=== PATIENT | male | born 1950 | race Caucasian/White ===

== ENCOUNTER → 2017-08-21 09:33 | Outpatient (CLI) | payer MEDICARE, OTHER, SELFPAY ==
[2017-08-21 12:44] LABS: AST(SGOT) 15 U/L (15-37); Alanine Aminotransfer ALT/SGPT 26 U/L (16-61); Albumin, Serum 3.5 g/dL (3.2-5.0); Alkaline Phosphatase 83 U/L (45-117); Anion Gap 9 (5-15); BUN 17 mg/dL (7-18); BUN/Creat Ratio 20.2 RATIO (10-20); Bilirubin, Direct 0.09 mg/dL (0.00-0.30); Calcium,Total 9.2 mg/dL (8.5-10.1); Chloride 102 mmol/L (98-107); Cholesterol 128 mg/dL (200); Creatinine, Serum 0.84 mg/dL (0.70-1.30); EST Glomerular Filtration Rate 97 mL/min (>60); Est Glom Filt Rate - Afr Amer 118 mL/min (>60); Globulin 3.4 g/dL (2.2-4.2); Glucose 159 mg/dL (74-106); High Density Lipoprotein 42 mg/dL; Potassium 4.4 mmol/L (3.5-5.1); Protein, Total 6.9 g/dL (6.4-8.2); Sodium Level 139 mmol/L (136-145); Triglycerides 114 mg/dL; Very Low Density Lipoprotein 23 mg/dL (5-40)
== END ==
PROVIDERS: Family Provider Family Medicine; PCP Family Medicine; Visit Provider Family Medicine
DX: E11.9 Type 2 diabetes mellitus without complications (principal)
CPT/HCPCS: 36415; 80048; 80061; 80076

== ENCOUNTER → 2017-08-22 10:23 | Outpatient (CLI) | payer MEDICARE, OTHER, SELFPAY ==
[2017-08-22 12:58] LABS: Microalbumin:Creatinine Ratio 281.2 mg/g CRE (<30 mg/g CRE)
== END ==
PROVIDERS: Family Provider Family Medicine; PCP Family Medicine; Visit Provider Family Medicine
DX: E11.9 Type 2 diabetes mellitus without complications (principal)
CPT/HCPCS: 82043; 82570

== ENCOUNTER → 2018-03-27 09:15 | Outpatient (CLI) | payer MEDICARE, OTHER, SELFPAY ==
[2018-03-27 10:35] LABS: AST(SGOT) 8 U/L (15-37); Alanine Aminotransfer ALT/SGPT 20 U/L (16-61); Albumin, Serum 3.1 g/dL (3.2-5.0); Alkaline Phosphatase 76 U/L (45-117); Anion Gap 8 (5-15); BUN 18 mg/dL (7-18); Bilirubin, Direct 0.13 mg/dL (0.00-0.30); Calcium,Total 8.7 mg/dL (8.5-10.1); Chloride 100 mmol/L (98-107); EST Glomerular Filtration Rate 89 mL/min (>60); Est Glom Filt Rate - Afr Amer 108 mL/min (>60); Globulin 3.6 g/dL (2.2-4.2); Glucose 279 mg/dL (74-106); Potassium 4.3 mmol/L (3.5-5.1); Protein, Total 6.7 g/dL (6.4-8.2); Sodium Level 138 mmol/L (136-145)
== END ==
PROVIDERS: Family Provider Family Medicine; PCP Family Medicine; Visit Provider Family Medicine
DX: E11.9 Type 2 diabetes mellitus without complications (principal)
CPT/HCPCS: 36415; 80048; 80076

== ENCOUNTER → 2019-04-04 08:27 | Outpatient (CLI) | payer MEDICARE, SELFPAY ==
[2019-02-10 08:26] VITALS: BMI 41.0
[2019-04-04 10:30] LABS: Anion Gap 7 (5-15); BUN 22 mg/dL (7-18); BUN/Creat Ratio 26.8 RATIO (10-20); Calcium,Total 9.5 mg/dL (8.5-10.1); Chloride 104 mmol/L (98-107); Cholesterol 112 mg/dL (200); Creatinine, Serum 0.82 mg/dL (0.70-1.30); EST Glomerular Filtration Rate 99 mL/min (>60); Est Glom Filt Rate - Afr Amer 120 mL/min (>60); Glucose 158 mg/dL (74-106); High Density Lipoprotein 39 mg/dL; Sodium Level 140 mmol/L (136-145); Triglycerides 95 mg/dL; Very Low Density Lipoprotein 19 mg/dL (5-40)
== END ==
PROVIDERS: Family Provider Family Medicine; PCP Family Medicine; Referring Provider Family Medicine; Visit Provider Family Medicine
DX: E11.9 Type 2 diabetes mellitus without complications (principal)
CPT/HCPCS: 36415; 80048; 80061

== ENCOUNTER → 2019-08-06 16:00 | Outpatient (CLI) | payer MEDICARE, SELFPAY ==
[2019-08-06 14:10] VITALS: BMI 41.0
[2019-08-06 16:30] LABS: Bacteria 0 SEEN /hpf (None Seen); Mucous, Urine 0 SEEN /hpf (<or=2+); Red Blood Cells-Urine 0 SEEN /hpf (0-5); Squamous Epithelial Cells - UA 0 SEEN /hpf (0-5)
[2019-08-06 17:11] LABS: Color, Urine Yellow (Yellow); Glucose, Dipstick 1000 mg/dl (Normal); Ketone-Dipstick Negative (Negative); Leukocyte Esterase-Dipstick Negative /ul (Negative); Nitrite-Dipstick Negative (Negative); Occult Blood-Urine Negative /ul (Negative); Protein-Dipstick 100 mg/dl (Negative); Specific Gravity, Urine 1.015 (1.002-1.030); Urine Bilirubin Dipstick Negative (Negative); Urine Clarity Clear (Clear); Urine Urobilinogen Normal (Normal)
[2019-08-06 17:36] LABS: White Blood Cells 0-5 SEEN /hpf (0-5)
== END ==
PROVIDERS: PCP Family Medicine; Referring Provider Physician Assistant; Visit Provider Physician Assistant
DX: M54.9 Dorsalgia, unspecified (principal)
CPT/HCPCS: 81001; 87086

== ENCOUNTER → 2019-10-09 09:21 | Outpatient (CLI) | payer MEDICARE, SELFPAY ==
[2019-08-06 14:10] VITALS: BMI 41.0
[2019-10-09 10:22] LABS: Hemoglobin A1c 8.2 % (3.8-5.6)
[2019-10-09 10:36] LABS: Anion Gap 6 (5-15); BUN 26 mg/dL (7-18); BUN/Creat Ratio 29.6 RATIO (10-20); Calcium,Total 9.8 mg/dL (8.5-10.1); Chloride 103 mmol/L (98-107); Cholesterol 129 mg/dL (200); Creatinine, Serum 0.88 mg/dL (0.70-1.30); EST Glomerular Filtration Rate 92 mL/min (>60); Est Glom Filt Rate - Afr Amer 111 mL/min (>60); Glucose 173 mg/dL (74-106); High Density Lipoprotein 45 mg/dL; Sodium Level 138 mmol/L (136-145); Triglycerides 99 mg/dL; Very Low Density Lipoprotein 20 mg/dL (5-40)
== END ==
PROVIDERS: PCP Family Medicine; Referring Provider Family Medicine; Visit Provider Family Medicine
DX: E11.9 Type 2 diabetes mellitus without complications (principal)
CPT/HCPCS: 36415; 80048; 80061; 83036

== ENCOUNTER → 2019-11-13 13:18 | Outpatient (CLI) | payer MEDICARE, SELFPAY ==
[2019-08-06 14:10] VITALS: BMI 41.0
[2019-11-13 15:10] LABS: Absolute Lymphocyte Count 1.67 X10^3/uL (0.83-4.51); Absolute Neutrophil Count 4.9 X10^3/uL (2.0-7.7); Basophil# 0.09 X10^3/uL; Basophil% 1.1 % (0-1); Eosinophil# 0.41 X10^3/uL; Eosinophils% 5.2 % (0-5); Hematocrit 47.9 % (40-54); Hemoglobin 15.3 g/dL (13.0-16.5); Lymphocyte # 1.67 X10^3/ul (4.0); Lymphocyte % 21.2 % (19-41); Mean Corp Hgb Conc 31.9 g/dL (32-36); Mean Corpuscular Hgb 29.4 pg (27.0-32.0); Mean Corpuscular Volume 91.9 fL (80-94); Mean Platelet Vol. 9.9 fl (6.2-12.0); Monocyte# 0.74 X10^3/uL; Monocyte% 9.4 % (0-10); NRBC Flagged by Analyzer 0 % (0-5); Neutrophil # 4.93 X10^3/uL (2.7-7.7); Neutrophil % 62.6 % (47-70); Platelet Count 299 K/mm3 (150-450); RBC Distribution Width CV 12.9 % (11.6-14.6); RBC Distribution Width SD 42.2 fl (35.1-43.9); Red Blood Count 5.21 M/mm3 (4.6-6.2); White Blood Count 7.9 K/mm3 (4.4-11.0)
[2019-11-13 15:50] LABS: Thyroid Stim Hormone (TSH) 2.56 uIU/mL (0.358-3.74)
== END ==
PROVIDERS: PCP Family Medicine; Referring Provider Family Medicine; Visit Provider Family Medicine
DX: M79.89 Other specified soft tissue disorders (principal); E11.9 Type 2 diabetes mellitus without complications
CPT/HCPCS: 36415; 84443; 85025

== ENCOUNTER → 2019-11-17 12:44 | Outpatient (CLI) | payer MEDICARE, SELFPAY ==
[2019-11-14 13:16] VITALS: BMI 41.0
--- NOTE | 2019-11-17 12:49 | VDLE_ITS ---
Reason For Study: Leg edema RIGHT LEFT GSV is normal. GSV is normal. CFV is compressible, spontaneous, phasic, CFV is compressible, spontaneous, phasic, competent and demonstrates normal competent, and demonstrates normal augmentation. augmentation. FV is compressible, spontaneous, phasic, FV is compressible, spontaneous, phasic, competent and demonstrates normal competent and demonstrates normal augmentation. augmentation. POP V is compressible, spontaneous, phasic, POP V is compressible, spontaneous, phasic, competent and demonstrates normal competent and demonstrates normal augmentation. augmentation. T/P Trunk is compressible. T/P Trunk is compressible. PTV is compressible. PTV is compressible. RT PerV is compressible. LT PerV is compressible. Large vascularized structure noted in the right proximal thigh with roeleaux flow noted. Procedure Exam performed in department. A preliminary report was called and/or faxed to [facility]. Interpretation Summary No evidence for acute deep venous thrombosis bilateral lower extremities with patent and compressible bilateral great saphenous veins. Large vascularized right proximal thigh structure with slow blood flow noted. This appears to be in the subcutaneous tissue but the extent cannot be determined secondary to its size. Clinical correlation or additional imaging would be pertinent. Ordering Physician: Valentina Servin Referring Physician: Dino Ward Performed By: Aminta Carpio RVT and Student
== END ==
PROVIDERS: PCP Family Medicine; Referring Provider Family Medicine; Visit Provider Family Medicine
DX: R60.0 Localized edema (principal)
CPT/HCPCS: 93970

== ENCOUNTER → 2020-04-01 09:38 | Outpatient (CLI) | payer MEDICARE, SELFPAY ==
[2020-03-18 15:29] VITALS: BMI 44.0
[2020-04-01 12:40] LABS: AST(SGOT) 9 U/L (15-37); Alanine Aminotransfer ALT/SGPT 23 U/L (16-61); Albumin, Serum 3.6 g/dL (3.2-5.0); Alkaline Phosphatase 83 U/L (45-117); Anion Gap 7 (5-15); BUN 25 mg/dL (7-18); BUN/Creat Ratio 27.4 RATIO (10-20); Bilirubin, Direct 0.17 mg/dL (0.00-0.30); Calcium,Total 9.6 mg/dL (8.5-10.1); Chloride 103 mmol/L (98-107); Cholesterol 121 mg/dL (200); Creatinine, Serum 0.91 mg/dL (0.70-1.30); EST Glomerular Filtration Rate 88 mL/min (>60); Est Glom Filt Rate - Afr Amer 106 mL/min (>60); Globulin 3.5 g/dL (2.2-4.2); Glucose 84 mg/dL (74-106); High Density Lipoprotein 40 mg/dL; Potassium 3.6 mmol/L (3.5-5.1); Protein, Total 7.1 g/dL (6.4-8.2); Sodium Level 140 mmol/L (136-145); Triglycerides 82 mg/dL; Very Low Density Lipoprotein 16 mg/dL (5-40)
== END ==
PROVIDERS: Internal Medicine Cardiovascular Disease; PCP Family Medicine; Visit Provider Family Medicine
DX: E11.9 Type 2 diabetes mellitus without complications (principal); E78.00 Pure hypercholesterolemia, unspecified
CPT/HCPCS: 36415; 80048; 80061; 80076

== ENCOUNTER → 2020-04-30 09:19 | Outpatient (CLI) | payer MEDICARE, SELFPAY ==
[2020-03-18 15:29] VITALS: BMI 44.0
--- NOTE | 2020-04-30 09:29 | RAD_ITS ---
STUDY: X-RAY - LEFT CALCANEUS REASON FOR EXAM: Male, 69 years old. PAIN IN LEFT HELL X 1 WEEK. REFERRING MD CHECKING FOR BONE SPURS. NKI. TECHNIQUE: 2 view(s) of the calcaneus were obtained. COMPARISON: None. FINDINGS: Normal visualized calcaneus. RAD/Calcaneus min 2 Views IMPRESSION: Normal x-ray examination of the calcaneus. Electronically Signed: Venkatesh Messer, at 12:46 EST , Service support ,
== END ==
PROVIDERS: PCP Family Medicine; Referring Provider Family Medicine; Visit Provider Family Medicine
DX: M79.672 Pain in left foot (principal)
CPT/HCPCS: 73650

== ENCOUNTER → 2020-07-02 09:49 | Outpatient (CLI) | payer MEDICARE, SELFPAY ==
[2020-03-18 15:29] VITALS: BMI 44.0
[2020-07-02 13:04] LABS: ALB/GLOB Ratio 0.9 RATIO (0.9-2.4); AST(SGOT) 8 U/L (15-37); Alanine Aminotransfer ALT/SGPT 25 U/L (16-61); Albumin, Serum 3.2 g/dL (3.2-5.0); Alkaline Phosphatase 74 U/L (45-117); Anion Gap 4 (5-15); BUN 23 mg/dL (7-18); BUN/Creat Ratio 26.4 RATIO (10-20); Calcium,Total 9.6 mg/dL (8.5-10.1); Chloride 104 mmol/L (98-107); Cholesterol 108 mg/dL (200); Creatinine, Serum 0.87 mg/dL (0.70-1.30); EST Glomerular Filtration Rate 93 mL/min (>60); Est Glom Filt Rate - Afr Amer 112 mL/min (>60); Globulin 3.5 g/dL (2.2-4.2); Glucose 63 mg/dL (74-106); High Density Lipoprotein 39 mg/dL; Potassium 3.9 mmol/L (3.5-5.1); Protein, Total 6.7 g/dL (6.4-8.2); Sodium Level 139 mmol/L (136-145); Thyroid Stim Hormone (TSH) 4.16 uIU/mL (0.358-3.74); Triglycerides 93 mg/dL; Very Low Density Lipoprotein 19 mg/dL (5-40)
== END ==
PROVIDERS: PCP Family Medicine; Referring Provider Family Medicine; Visit Provider Family Medicine
DX: J44.9 Chronic obstructive pulmonary disease, unspecified (principal); E78.5 Hyperlipidemia, unspecified
CPT/HCPCS: 36415; 80053; 80061; 84443

== ENCOUNTER → 2020-10-01 11:02 | Outpatient (CLI) | payer MEDICARE, SELFPAY ==
[2020-09-23 15:45] VITALS: BMI 44.3
--- NOTE | 2020-10-01 11:05 | RAD_ITS ---
STUDY: X-RAY CHEST REASON FOR EXAM: Male, 69 years old. Worsening shortness of breath TECHNIQUE: PA and lateral views of the chest. COMPARISON: 11/03/2016 FINDINGS: There are interstitial changes of the lungs. There is no demonstrated pleural abnormality. Sternal cerclage wires and vascular clips are present from a prior sternotomy and coronary artery bypass graft procedure (CABG). Normal mediastinum and tasia. Normal visualized pulmonary arteries. Normal visualized aortic arch and descending thoracic aorta. Normal visualized thoracic spine. Normal visualized ribs, clavicles, and shoulders. There is no demonstrated abnormality of the visualized soft tissue structures of the upper abdomen. RAD/Chest PA and Lateral IMPRESSION: Chronic interstitial changes, no superimposed acute pulmonary process Electronically Signed: Villa Ware MD at 11:35 EDT , Service support ,
== END ==
PROVIDERS: PCP Family Medicine; Referring Provider Family Medicine; Visit Provider Family Medicine
DX: R06.02 Shortness of breath (principal)
CPT/HCPCS: 71046

== ENCOUNTER → 2020-10-07 11:24 | Outpatient (CLI) | payer MEDICARE, SELFPAY ==
[2020-09-23 15:45] VITALS: BMI 44.3
--- NOTE | 2020-10-07 11:26 | US_ITS ---
STUDY: SUPERFICIAL ULTRASOUND - UPPER THIGH. REASON FOR EXAM: Male, 69 years old. Localized swelling, mass and lump, right lower limb TECHNIQUE: A superficial ultrasound was performed with real-time and static mcconnell-scale imaging. COMPARISON: None. FINDINGS: The palpable abnormality corresponds to a hypoechoic irregular solid mass measuring 8.4 cm x 10.6 x 4.7. There is evidence of increased blood flow to the mass. Biopsy is recommended. US/Ext Non Vasc Limited/Soft Tiss IMPRESSION: The palpable abnormality corresponds to an 8.4 cm x 10.6 cm x 4.7 cm hypoechoic irregular solid mass with increased vascularity. Biopsy is recommended. Electronically Signed: Venkatesh Messer MD at 13:29 EDT , Service support ,
== END ==
PROVIDERS: PCP Family Medicine; Referring Provider Family Medicine; Visit Provider Family Medicine
DX: R22.41 Localized swelling, mass and lump, right lower limb (principal)
CPT/HCPCS: 76882

== ENCOUNTER → 2020-10-15 11:44 | Outpatient (CLI) | payer MEDICARE, SELFPAY ==
[2020-09-23 15:45] VITALS: BMI 44.3
[2020-10-15 14:35] LABS: Absolute Lymphocyte Count 1.62 X10^3/uL (0.83-4.51); Absolute Neutrophil Count 5.5 X10^3/uL (2.0-7.7); Basophil% 1.2 % (0-1); Eosinophil# 0.38 X10^3/uL; Eosinophils% 4.6 % (0-5); Hematocrit 49.1 % (40-54); Lymphocyte # 1.62 X10^3/ul (0.83-4.51); Lymphocyte % 19.6 % (19-41); Mean Corp Hgb Conc 30.5 g/dL (32-36); Mean Corpuscular Hgb 28.3 pg (27.0-32.0); Mean Corpuscular Volume 92.6 fL (80-94); Mean Platelet Vol. 10.1 fl (6.2-12.0); Monocyte# 0.59 X10^3/uL; Monocyte% 7.1 % (0-10); NRBC Flagged by Analyzer 0 % (0-5); Neutrophil # 5.54 X10^3/uL (2.7-7.7); Neutrophil % 67.1 % (47-70); Platelet Count 234 K/mm3 (150-450); RBC Distribution Width CV 13.9 % (11.6-14.6); RBC Distribution Width SD 47.1 fl (35.1-43.9); White Blood Count 8.3 K/mm3 (4.4-11.0)
[2020-10-15 14:48] LABS: BNP,B-Type NATRIURETIC PEPTIDE 305.8 pg/mL (0-100)
[2020-10-15 15:07] LABS: ALB/GLOB Ratio 1.2 RATIO (0.9-2.4); AST(SGOT) 9 U/L (15-37); Alanine Aminotransfer ALT/SGPT 19 U/L (16-61); Albumin, Serum 3.4 g/dL (3.2-5.0); Alkaline Phosphatase 67 U/L (45-117); Anion Gap 7 (5-15); BUN 21 mg/dL (7-18); BUN/Creat Ratio 27.1 RATIO (10-20); Calcium,Total 9.3 mg/dL (8.5-10.1); Chloride 102 mmol/L (98-107); Cholesterol 127 mg/dL (200); Creatinine, Serum 0.78 mg/dL (0.70-1.30); EST Glomerular Filtration Rate 106 mL/min (>60); Est Glom Filt Rate - Afr Amer 128 mL/min (>60); Free T3 2.5 pg/mL (2.18-3.98); Globulin 2.9 g/dL (2.2-4.2); Glucose 162 mg/dL (74-106); High Density Lipoprotein 46 mg/dL; Potassium 4.2 mmol/L (3.5-5.1); Protein, Total 6.3 g/dL (6.4-8.2); Sodium Level 141 mmol/L (136-145); T4 Free Direct 1.07 ng/dL (0.76-1.46); Thyroid Stim Hormone (TSH) 1.75 uIU/mL (0.358-3.74); Triglycerides 141 mg/dL; Very Low Density Lipoprotein 28 mg/dL (5-40)
== END ==
PROVIDERS: PCP Family Medicine; Referring Provider Family Medicine; Visit Provider Family Medicine
DX: E11.9 Type 2 diabetes mellitus without complications (principal); E03.9 Hypothyroidism, unspecified; R06.02 Shortness of breath
CPT/HCPCS: 36415; 80053; 80061; 83036; 83880; 84439; 84443; 84481; 85025

== ENCOUNTER → 2020-10-19 12:38 | Outpatient (CLI) | payer MEDICARE, SELFPAY ==
[2020-10-19 08:56] VITALS: BMI 44.8
--- NOTE | 2020-10-19 12:42 | RAD_ITS ---
STUDY: X-RAY CHEST REASON FOR EXAM: Male, 69 years old. COPD TECHNIQUE: PA and lateral views of the chest. COMPARISON: Comparison is made with prior study dated 10/01/2020. FINDINGS: The lungs are clear and expanded. There is no demonstrated pleural abnormality. Sternal cerclage wires and vascular clips are present from a prior sternotomy and coronary artery bypass graft procedure (CABG). Normal mediastinum and tasia. Normal visualized pulmonary arteries. There is atherosclerotic calcification of the aortic arch with tortuosity. There is demineralization of the osseous structures. Normal visualized ribs, clavicles, and shoulders. There is no demonstrated abnormality of the visualized soft tissue structures of the upper abdomen. RAD/Chest PA and Lateral IMPRESSION: No acute abnormality is seen. Electronically Signed: Venkatesh Messer MD at 13:11 EDT , Service support ,
== END ==
PROVIDERS: PCP Family Medicine; Referring Provider Registered Nurse; Visit Provider Registered Nurse
DX: J44.9 Chronic obstructive pulmonary disease, unspecified (principal)
CPT/HCPCS: 71046

== ENCOUNTER → 2020-11-01 14:08 | Outpatient (CLI) | payer MEDICARE, SELFPAY ==
--- NOTE | 2020-11-01 | IMM_PTH ---
PATIENT: EDIN LINK LOC: [facility] U#:[id number] AGE/SX: 74/M ROOM: RE11/01/[address]: Dr. Ruben Monterroso MD : 1950 BED: DIS: SPEC #: [id number] RECD: 11/04/20 11:56 STATUS: MIGUELINA RE #: [id number] FATIMAH: 11/01/20 00:[address]: Ruben Monterroso DEPT: IMMUNOHISTOCHEMISTRY RECD BY: Soo Franco ENTERED: 11/04/20 12:02 SP TYPE: IMMUNO OTHR DR: Dr. Dino Ward MD Tissues: Thigh, NOS Procedures: SMA (add) CD31 (add) CD34 (add) CK20 (add) CK7 (add) CK8 (add) DE LOS SANTOS-2 (add) DESMIN (add) HERBERTH (add) KI-67 (add) P53 (add) Vimentin (add) SMM (add) FACTOR VIII (add) NEUROFIL (add) Pankeratin (initial) MELAN-A (add) P40 (add) CDX2 (add) S-100 (add) PHYSICIAN & INSTITUTION [facility] [id number] SPECIMEN INFORMATION: Tissue Source: Right inner thigh Clinical Info: Right thigh mass Specimen Number: [id number] CPT code: 42275, 07164 x19 METHODOLOGY: Deparaffinized sections of prefer/formalin-fixed tissue or PAP/DQ stained slides are incubated with monoclonal/polyclonal antibodies/oligonucleotide probes. Localization is made via biotin free immunoperoxidase method. Appropriate controls are performed and reacted as expected. Results on target cell population are indicated in the following table: RESULTS: ANTIBODY / CLONE RESULT AE1-3 (AE1/AE3/PCK26) negative CK7 (OV-TL12/30) negative CK8 (20vnvtK42) negative CK20 (KS20.8) negative DE [place] SANTOS-2 (SP21) negative CDX2 (TLI8735L) negative Vimentin (V9) positive CD31 (MOUNA/70A) negative Factor VIII (R Ag) negative CD34 (QBEnd-10) negative Actin (1A4) positive Myosin (simms1) positive Desmin (CE-R-11) positive Melan A (A103) negative S-100 (4C4.9) negative Neurofil (2F11) negative P40 (BC28) negative HERBERTH (E29) negative P53 (DO-7) negative Ki-67 (30-9) positive, 20% These tests were developed and their performance characteristics determined by [facility]. They may not have been cleared or approved by the U.S. Food and Drug Administration. The FDA has determined that such clearance or approval is not necessary. The above immunohistochemical/dualISH markers are ordered and reviewed by the Pathologist. 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 AM:celso 11/12/2020 Case has been reviewed in consultation with Dr. Hayden who concurs with the above diagnosis. IDC:SJ
[2020-11-01 13:23] VITALS: BMI 44.8
--- NOTE | 2020-11-01 13:30 | TISS_PTH ---
PATIENT: EDIN LINK LOC: [facility] U#:[id number] AGE/SX: 74/M ROOM: RE11/01/[address]: Dr. Ruben Monterroso MD : 1950 BED: DIS: SPEC #: [id number] RECD: 11/01/20 13:57 STATUS: MIGUELINA MOISES #: [id number] FATIMAH: 11/01/20 13:[address]: Ruben Monterroso DEPT: SURGICAL PATHOLOGY RECD BY: Ana Arnold ENTERED: 11/02/20 09:58 SP TYPE: Tissue Bx RICHARD DR: Dr. Dino Ward MD Tissues: Thigh, NOS Procedures: Surgery Specimen Level IV HEADER OPERATION: Ultrasound-guided right thigh needle core biopsy PRE-OP DIAGNOSIS: Mass of right thigh R22.41 TISSUE SUBMITTED: Right inner thigh tissue MICROSCOPIC DIAGNOSIS Right inner thigh tissue, ultrasound-guided core biopsy: Consistent with high-grade leiomyosarcoma. AM:celso 11/12/2020 COMMENT Immunohistochemistry ([id number]) supports the above diagnosis. Case is seen in consultation with Dr. Hardy of [place] [facility]. Report is viewable in EMR. Case has been reviewed in consultation with Dr. Hayden who concurs with the above diagnosis. IDC:HUGO MICROSCOPIC DESCRIPTION Slides are reviewed. GROSS DESCRIPTION Received in fixative is one container labeled with the patient's name and designated right inner thigh. The specimen consists of multiple elongated fragments of benavides soft tissue that in aggregate measure 2 x 1 x 0.1 cm. The specimen is totally submitted in one cassette. / HUGO:celso 11/02/20 TC:0 CPT: 77750
== END ==
PROVIDERS: PCP Family Medicine; Referring Provider Surgery; Visit Provider Surgery
DX: R22.41 Localized swelling, mass and lump, right lower limb (principal)
CPT/HCPCS: 88305; 88341; 88342

== ENCOUNTER → 2020-11-16 06:42 | Outpatient (CLI) | payer MEDICARE, SELFPAY ==
[2020-11-01 13:23] VITALS: BMI 44.8
--- NOTE | 2020-11-16 06:45 | ECHOCS_ITS ---
Reason For Study: CAD, HTN Procedure This was a 2D Doppler, Color Flow transthoracic echocardiogram. The study was technically difficult. Contrast injection was performed. Exam performed in department. Left Ventricle Mild segmental systolic dysfunction (see wall motion). The estimated ejection fraction is 45 %. Unable to assess diastolic dysfunction. Infero-Basal: Akinetic. Basal inferoseptal: Hypokinetic. Mid-Inferior: Hypokinetic. Mid-inferoseptal : Hypokinetic. Right Ventricle Normal RV size. Normal systolic function. Atria The left atrium is mildly enlarged. The right atrium is mildly enlarged. No doppler evidence for ASD. Mitral Valve There is moderate mitral annular calcification. Extension of the mitral annular calcification onto the posterior mitral valve leaflet. Mild (1+) mitral valve insufficiency. Tricuspid Valve Normal tricuspid valve. Mild tricuspid valve insufficiency. Right ventricular systolic pressure estimated to be 42 mmHg. Aortic Valve Trisinus/trileaflet aortic valve. Normal aortic valve. Pulmonic Valve The pulmonic valve is not well visualized. Great Vessels Normal sized aortic root. Pericardium/Pleural No pericardial effusion. Medication Diluted definity 5ml given slow IV push to enhance endocardial definition. MMode/2D Measurements & Calculations RVDd: 4.7 cm Ao root diam: 3.8 cm LAV(MOD-bp): 107.6 ml LAV(MOD-bp) Indexed: 45.9 ml/m2 LAV(MOD-sp2): 108.8 ml LAV(MOD-sp4): 97.4 ml SV(MOD-sp4): 34.4 ml SV(sp4-el): 33.5 ml LVAd ap4: 32.7 cm2 LVLd ap4: 8.5 cm EDV(MOD-sp4): 105.3 ml EDV(sp4-el): 107.5 ml LVAs ap4: 27.3 cm2 LVLs ap4: 8.6 cm ESV(MOD-sp4): 70.9 ml ESV(sp4-el): 74.0 ml EF(MOD-sp4): 32.7 % EF(sp4-el): 31.2 % LA dimension(2D): 4.7 cm RA A4 area: 32.9 cm2 Time Measurements MV dec time: 0.14 sec Doppler Measurements & Calculations MV E max tang: 108.9 cm/sec Ao V2 max: 104.9 cm/sec LV V1 max: 72.5 cm/sec Ao max P.4 mmHg LV V1 max P.1 mmHg PA V2 max: 80.7 cm/sec TR max tang: 313.8 cm/sec TR max P.4 mmHg ECHO/Echo Complete W/ Contrast Interpretation Summary The study was technically difficult. Contrast injection was performed. Mild segmental systolic dysfunction (see wall motion). The estimated ejection fraction is 45 %. The left atrium is mildly enlarged. The right atrium is mildly enlarged. There is moderate mitral annular calcification. Extension of the mitral annular calcification onto the posterior mitral valve l eaflet. Mild (1+) mitral valve insufficiency. Mild tricuspid valve insufficiency. Right ventricular systolic pressure estimated to be 42 mmHg. Unable to assess diastolic dysfunction. Ordering Physician: Dino Vega Referring Physician: DINO MONTE Performed By: Leigha Victor, RDCS, RVT
--- NOTE | 2020-11-16 08:59 | STRESSREP ---
Stress Test Report Date: 11-16-2020 Procedure: Pharmacologic stress nuclear imaging study Indications: Shortness of breath/dyspnea on exertion; CAD; PCI; CABG; atrial fibrillation Consent: Per the patient Procedure: The patient underwent pharmacologic (Regadenoson 0.4mg ) evaluation with a peak heart rate of 113 beats per minute (74%predicted maximal heart rate) and a peak blood pressure of 148/78 mmHg. The baseline ECG demonstrated atrial fibrillation; nonspecific ST/T wave abnormality. The peak pharmacologic ECG demonstrated no obvious ECG changes. There was a rare PVC during infusion and recovery. There was no complaint of chest discomfort during pharmacologic infusion or recovery. The examination was discontinued secondary to completion of protocol. Impression: 1. Pharmacologic (Regadenoson) evaluation 2. Peak pharmacologic ECG with no obvious ECG changes. 3. There were no cardiac dysrhythmias pretest, during pharmacologic infusion, or recovery. 4. Nuclear images pending Myocardial perfusion imaging study: Technique: The patient was injected with 14.3 millicuries of technetium 99m Cardiolite and subsequently rest SPECT Cardiolite nuclear imaging was obtained in the horizontal long, vertical long, and short axis views. The patient underwent pharmacologic (Regadenoson) evaluation with a peak heart rate of 113 beats per minute (74% percent predicted maximal heart rate) and a peak blood pressure of 148/78 mmHg. The patient was injected with 44.7 millicuries of technetium 99m Cardiolite and subsequently stress SPECT Cardiolite nuclear imaging was obtained in the horizontal long, vertical long, and short axis views. A gated Cardiolite study at peak stress was obtained. Interpretation: Rest and stress SPECT Cardiolite nuclear imaging status post realignment, normalization, and attenuation correction demonstrate relative uniform tracer uptake and myocardial perfusion appearing within normal limits. There is end systolic thickening and brightening. The gated Cardiolite study demonstrates myocardial thickening and inward wall motion. The reported LVEF is 33%. Impression: 1. Rest and stress SPECT Cardiolite nuclear imaging demonstrate relative uniform tracer uptake and myocardial perfusion appearing within normal limits. 2. The gated Cardiolite study reports an LVEF of 33%. This note was generated with [employer] software. It may contain incorrect words, spelling, and punctuation that were not noted in checking the note before signing.
== END ==
PROVIDERS: PCP Family Medicine; Referring Provider Internal Medicine Cardiovascular Disease; Visit Provider Internal Medicine Cardiovascular Disease
DX: R06.02 Shortness of breath (principal); R06.00 Dyspnea, unspecified; I25.10 Atherosclerotic heart disease of native coronary artery without angina pectoris; I48.91 Unspecified atrial fibrillation; Z95.1 Presence of aortocoronary bypass graft
CPT/HCPCS: 78452; 93017; 93306; A9500; Q9957; A4216; C8929; J2785; J3490

== ENCOUNTER 2020-11-25 08:24 | Emergency (ER) | payer MEDICARE, SELFPAY ==
[2020-11-01 13:23] VITALS: BMI 44.8
[2020-11-25] VITALS (7 sets, daily range): BP systolic 121–132; BP diastolic 64–84; PULSE 62–76; RESP 16–20; TEMP 37.2; O2SAT 88–96; BMI 48.6
--- NOTE | 2020-11-25 08:25 | EKG12_ITS ---
Test Reason : ILLNESS Blood Pressure : / mmHG Vent. Rate : 060 BPM Atrial Rate : 300 BPM P-R Int : 000 ms QRS Dur : 130 ms QT Int : 340 ms P-R-T Axes : 000 080 253 degrees QTc Int : 340 ms Atrial fibrillation Non-specific intra-ventricular conduction block Nonspecific T wave abnormality Abnormal ECG Confirmed by MAGALIE GONGORA, BRYAN ([id number]), story editor ANDERSON SCHAEFFER ([id number]) on 11/29/2020 9:27:24 AM Referred By: ROBIN Confirmed By:RONALDO MEJIAS MD
--- NOTE | 2020-11-25 08:25 | CT_ITS ---
STUDY: CT HEAD STROKE PROTOCOL W/O CONTRAST INJECTION REASON FOR EXAM: Male, 70 years old. Neuro deficit, acute, stroke suspected RADIATION DOSAGE (If Supplied By Facility): CTDIvol = ( 38.43 ) mGy, DLP = ( 741.51 ) mGycm TECHNIQUE: Transaxial CT imaging of the brain was performed without administration of intravenous contrast material. Individualized dose optimization techniques were used for this CT. COMPARISON: Comparison is made with prior study dated 11/03/2016. FINDINGS: Normal soft tissue structures. Normal calvarium. There is mild cerebral atrophy with widening of the extra-axial spaces and ventricular dilatation. Normal white matter tracts of the cerebral hemispheres. There is evidence of old lacunar infarcts in the basal ganglion bilaterally. Normal brainstem. Normal cerebellum. There is no intracranial hemorrhage. There are no findings of an acute ischemic infarction. Normal visualized paranasal sinuses. CT/STROKE Brain/Head without Cont IMPRESSION: Chronic involutional changes of the brain. Stable old bilateral basal ganglia lacunar infarcts. N.B. : The above Results were Read Back by Venkatesh Messer MD to Triston Morrison and understanding confirmed on 11/25/2020 08:48:59 (ET). Electronically Signed: Venkatesh Messer MD at 8:50 EDT , Service support ,
--- NOTE | 2020-11-25 08:26 | CT_ITS ---
We are attempting to reach an attending provider to discuss findings. An addendum with communication details will be sent when the communication is complete. STUDY: CTA HEAD AND NECK WITH CONTRAST REASON FOR EXAM: Male, 70 years old. Neuro deficit, acute, stroke suspected, HYPOGLYCEMIA RADIATION DOSAGE (If Supplied By Facility): CTDIvol = ( 31.31 ) mGy, DLP = ( 1031.39 ) mGycm TECHNIQUE: CT angiography was performed with a multi-detector CT scanner. Data acquisition was obtained from the skull base through the vertex following intravenous administration of IV 100ML ISOVUE 370. MIP images were reconstructed from the axial data set. Post-processing of the angiographic images was performed, with multiplanar reformation and 3D reconstruction. Individualized dose optimization techniques were used for this CT. COMPARISON: Comparison is made with prior examination dated 11/03/2016. FINDINGS: Normal bilateral petrous carotid arteries. There is calcified plaque formation of the right cavernous carotid artery, without a cross-sectional luminal stenosis. There is calcified plaque formation of the left cavernous carotid artery, without a cross-sectional luminal stenosis. Normal right A1 segments of the anterior cerebral artery. Normal left A1 segments of the anterior cerebral artery. Normal intact anterior communicating artery (ACOM). Normal bilateral A2 segments of the anterior cerebral arteries. Normal right M1 and M2 segments of the middle cerebral arteries, with a normal M1 bifurcation. There is irregularity of the left M1 and M2 branches with minimal luminal narrowing, suggesting atherosclerotic plaque formation, without an occlusion. Normal right posterior communicating artery (PCOM). Normal left posterior communicating artery (PCOM). Normal bilateral vertebral arteries. Normal basilar artery with a normal basilar bifurcation. The visualized bilateral superior cerebellar (SCA) arteries are normal. Normal bilateral P1, P2 and visualized P3 segments of the posterior cerebral arteries. There is no demonstrated aneurysm of the [place]. There is no demonstrated abnormality of the visualized brain. AORTIC ARCH: There is atherosclerotic calcific plaque formation of the aortic arch and great vessels arising from the aortic arch, without a hemodynamically significant stenosis. There is a normal origin of the brachiocephalic, left common carotid, and left subclavian arteries. RIGHT CAROTID ARTERIES: Normal right common carotid artery (CCA). Normal right common carotid bulb. There is moderate atherosclerotic plaque formation of the origin of the right internal carotid artery with an estimated stenosis of 50-69% stenosis. Normal visualized cervical portion of the right internal carotid artery. Normal origin of the right external carotid artery (ECA). LEFT CAROTID ARTERIES: Normal left common carotid artery (CCA). Normal left common carotid bulb. There is extensive atherosclerotic plaque formation of the origin of the left internal carotid artery with an estimated stenosis of greater than 70%. Normal visualized cervical portion of the left internal carotid artery. Normal origin of the left external carotid artery (ECA). VERTEBRAL ARTERIES: Normal bilateral vertebral arteries. CT/STROKE CTA Head AND Neck W/Con IMPRESSION: High-grade stenosis involving both carotid bifurcations more prominent on the left side. Stable irregularity of the distal portion of the left M1 segment with decreased branches within the left sylvian fissure. This is unchanged. Electronically Signed: Venkatesh Messer MD at 8:55 EDT , Service support ,
--- NOTE | 2020-11-25 08:33 | ED.VIS.STROK ---
HPI History of Present Illness Chief Complaint: Alt LOC Narrative Narrative: 70-year-old male presenting with left-sided facial droop from home. Patient's told EMS he was up and down all night but she last saw him well between 9 and 10 PM. He woke up with a left-sided facial droop. EMS stated that his blood sugar was 49 and they gave D50 and on repeat PGT he was greater than 100. On arrival checked his blood sugar again and it is 80. Patient was unable to perform anything on exam and is moaning. He is unable to give history at this time. Per EMS he was recently diagnosed with some kind of cancer. [facility] Medical History Atherosclerosis of coronary artery bypass graft without angina pectoris CVA (cerebral vascular accident) Dyspnea on exertion Essential hypertension Fatigue History of myocardial infarction Hyperlipidemia Ischemic cardiomyopathy Leiomyosarcoma of lower extremity Lower back pain Paroxysmal atrial fibrillation Type 2 diabetes mellitus Home Medications aspirin 81 mg tablet,delayed release 81 mg PO QDAY 11/09/17 [History Last Taken Unknown] glimepiride 4 mg tablet 4 mg PO QAM 11/09/17 [History Last Taken Unknown] metformin 1,000 mg tablet 1,000 mg PO BID 11/09/17 [History Last Taken Unknown] empagliflozin 10 mg tablet 10 mg PO DAILY 02/10/19 [History Last Taken Unknown] insulin detemir U-100 100 unit/mL (3 mL) subcutaneous pen 20 unit SC QHS ml 03/18/20 [History Last Taken Unknown] insulin lispro 100 unit/mL subcutaneous pen 10 unit SC ml 03/18/20 [History Last Taken Unknown] amlodipine 10 mg tablet 10 mg PO QDAY #90 tab 07/26/20 [Rx Last Taken Unknown] atorvastatin 40 mg tablet 40 mg PO QDAY #90 tab 07/26/20 [Rx Last Taken Unknown] clonidine HCl 0.2 mg tablet 0.2 mg PO QDAY #90 tab 07/26/20 [Rx Last Taken Unknown] hydrochlorothiazide 25 mg tablet 25 mg PO QDAY #90 tab 07/26/20 [Rx Last Taken Unknown] lisinopril 40 mg tablet 40 mg PO QDAY #90 tab 07/26/20 [Rx Last Taken Unknown] losartan 100 mg tablet 100 mg PO DAILY #90 tab 07/26/20 [Rx Last Taken Unknown] potassium chloride 10 mEq tablet,extended release 10 meq PO QDAY #90 tab 07/26/20 [Rx Last Taken Unknown] apixaban 5 mg tablet 5 mg PO BID #180 tab 08/03/20 [Rx Last Taken Unknown] nitroglycerin 0.4 mg sublingual tablet 0.4 mg SUBLINGUAL Q5M PRN #90 tab 09/23/20 [Rx Last Taken Unknown] carvedilol 12.5 mg tablet 12.5 mg PO BID #180 tab 11/16/20 [Rx Last Taken Unknown] Allergy/AdvReac Type Severity Reaction Status Date / Time No Known Allergies Allergy Verified 11/01/20 13:23 Family History Father CAD (coronary artery disease) Hx of CABG, Onset Age: 56 Mother Cancer Surgical History Aortocoronary bypass status (~07/12/00) History of detached retina repair Postsurgical percutaneous transluminal coronary angioplasty (PTCA) status Presence of stent in coronary artery (~05/22/12) Social History Smoking Status: Former smoker how long ago did patient quit smokin years ago alcohol intake: never substance use type: does not use caffeine: Yes Type: coffee Number of servings: 2 and tea Number of servings: 6 ROS ROS ED Review of Systems ROS Unobtainable: due to mental condition, due to mental status and other EXAM Physical Exam Const Vital Signs: 11/25/20 08:36 11/25/20 08:38 11/25/20 08:42 Temperature 98.9 F 98.9 F Temperature Source Temporal Temporal Pulse Rate 65 62 69 Respiratory Rate 20 H 20 H 20 H Blood Pressure 125/80 H 125/80 H 125/80 H Blood Pressure Mean 95 95 95 Pulse Ox 88 92 94 Oxygen Delivery Method Room Air Nasal Cannula Nasal Cannula Oxygen Flow Rate (L/min) 2 2 11/25/20 09:00 11/25/20 09:03 11/25/20 09:30 Temperature Temperature Source Pulse Rate 76 66 76 Respiratory Rate 20 H 17 16 Blood Pressure 132/84 H 121/65 H 121/64 H Blood Pressure Mean 100 83 83 Pulse Ox 96 95 94 Oxygen Delivery Method Nasal Cannula Nasal Cannula Nasal Cannula Oxygen Flow Rate (L/min) 2 2 2 11/25/20 10:42 Temperature Temperature Source Pulse Rate Respiratory Rate Blood Pressure 122/72 H Blood Pressure Mean Pulse Ox Oxygen Delivery Method Oxygen Flow Rate (L/min) Positive obese General Appearance ED: other Moaning Nutritional Appearance: obese HEENT Reports moist mucous membranes Negative for atraumatic Eyes PERRL and EOMs intact bilaterally Resp normal respiratory effort and clear to auscultation bilaterally Cardio Rate: regular rate Rhythm: regular rhythm GI normal to inspection, nondistended, normoactive bowel sounds Extremity General Extremety ED: Yes edema; Negative for tenderness General Extremity: edema Neuro oriented x3 Sensorium / Orientation: alert Skin Lesions: no lesions Rashes: no rashes MDM MDM MDM Narrative Medical decision making narrative: Patient was met at the door due to stroke alert. His blood sugar was rechecked and is about 80. When his labs returned it was 29 prehospital. As he is given another amp of D50 he starts to be more alert and awake. His NIH stroke scale score is 0 after his glucose normalized. Patient CBC is normal. PT and INR are unremarkable. Renal function electrolytes are normal. EKG shows atrial fibrillation at a rate of 60 bpm with nonspecific T wave abnormality on my interpretation. Chest x-ray shows no acute cardiopulmonary process on my interpretation. CT brain shows M1 segment previously seen and is stable. CTA of the head and neck shows high-grade stenosis bilaterally the carotid arteries at their origins. This is acutely changed since his previous admission about a month ago. Initially [facility] did beam in and determined he was not a TPA candidate given his increasing neurologic function with glucose as well as his status of being anticoagulated. After obtaining the read of the CTA I did have concern for the acute worsening of the carotid arteries. They did accept admission however when I went to speak with the patient he states that he does not want to go to [facility]. He states he would not go to [place] either. He states he only wants to go to [place]. I did call [facility] and they stated they had no beds. I did then call [facility] and they told me there was good to be at least a 12-hour wait but thought maybe it would be closer to 18 given that the bed status was full and that they had several people in the ER waiting to be admitted already. After discussing this with him he became angry. I did tell him that there was nothing more that I could do in regards to the bed status at an outside facility. I did offer to clinical center at which point he became angrier and stated that he wanted to go. I did have him sign out AMA. He does understand that he is both hypoxic without oxygen at home and requiring oxygen in the ER as well as has acute worsening of his carotid artery stenosis. He and his family are present and not knowledge understanding this as well. He understands he was severe disability injury or . After obtaining the AMA paperwork his daughter asked what we go home when will somebody call us about a bed at [facility]. I stated to her that if you go home that you will be off the waiting list for [facility]. If you want to stay he will have to stay in the emergency room but if you leave and go home you no longer will be on the list and he will have to go to [facility] if you wish to be there. At this point her father got even more angry and I told him that there was no more that I could do that she wanted to stay in the emergency room until he can get a transfer. I did try calling the hospitalist to have him admitted until however they declined admission. I did call Dr. Ward his primary care physician in order to obtain follow-up for him. I did tell the patient he can return at any time for repeat evaluation. Patient is discharged AMA. Impression: 1. Hypoglycemia 2. TIA 3. Bilateral carotid stenosis 4. Hypoxia Lab Data Labs: Laboratory Results - last 24 hr 11/25/20 11/25/20 11/25/20 08:15 08:15 08:15 WBC 7.9 RBC 5.42 Hgb 15.2 Hct 50.1 MCV 92.4 MCH 28.0 MCHC 30.3 L RDW Std Deviation 47.4 H RDW Coeff of Oliva 14.2 Plt Count 339 MPV 9.3 Immature Gran % (Auto) 0.500 Neut % (Auto) 61.0 Lymph % (Auto) 21.3 [place] % (Auto) 11.8 H Eos % (Auto) 4.3 Baso % (Auto) 1.1 H Absolute Neuts (auto) 4.8 Absolute Lymphs (auto) 1.68 Nucleated RBC % 0 PT 15.9 H INR 1.3 APTT 32.4 Sodium 141 Potassium 3.5 Chloride 101 Carbon Dioxide 36.0 H Anion Gap 4 L BUN 25 H Creatinine 0.83 Estim Creat Clear Calc 78.53 Est GFR (MDRD) Af Amer 118 Est GFR (MDRD) Non-Af 97 BUN/Creatinine Ratio 30.0 H Glucose 29 L* Calcium 9.4 Troponin I High Sens 29.0 POC Glucose 11/25/20 11/25/20 08:23 08:59 WBC RBC Hgb Hct MCV MCH MCHC RDW Std Deviation RDW Coeff of [place] Plt Count MPV Immature Gran % (Auto) Neut % (Auto) Lymph % (Auto) [place] % (Auto) Eos % (Auto) Baso % (Auto) Absolute Neuts (auto) Absolute Lymphs (auto) Nucleated RBC % PT INR APTT Sodium Potassium Chloride Carbon Dioxide Anion Gap BUN Creatinine Estim Creat Clear Calc Est GFR (MDRD) Af Amer Est GFR (MDRD) Non-Af BUN/Creatinine Ratio Glucose Calcium Troponin I High Sens POC Glucose 80 99 Radiography Diagnostic Testing: Radiology Impression Brain CT 11/25/20 08:25 IMPRESSION: Chronic involutional changes of the brain. Stable old bilateral basal ganglia lacunar infarcts. N.B. : The above Results were Read Back by Venkatesh Messer MD to Triston Morrison and understanding confirmed on 11/25/2020 08:48:59 (ET). Electronically Signed: Venkatesh Messer MD at 8:50 EDT , Service support , ADDENDUM: 11/25/20 0857 IMPRESSION: Chronic involutional changes of the brain. Stable old bilateral basal ganglia lacunar infarcts. N.B. : The above Results were Read Back by Venkatesh Messer MD to Triston Morrison and understanding confirmed on 11/25/2020 08:48:59 (ET). Electronically Signed: Venkatesh Messer MD at 8:50 EDT , Service support , Head/Neck CTA 11/25/20 08:26 IMPRESSION: High-grade stenosis involving both carotid bifurcations more prominent on the left side. Stable irregularity of the distal portion of the left M1 segment with decreased branches within the left sylvian fissure. This is unchanged. Electronically Signed: Venkatesh Messer MD at 8:55 EDT , Service support , ADDENDUM: 11/25/20 0902 IMPRESSION: High-grade stenosis involving both carotid bifurcations more prominent on the left side. Stable irregularity of the distal portion of the left M1 segment with decreased branches within the left sylvian fissure. This is unchanged. N.B. : The above Results were Read Back by Venkatesh Messer MD to Triston Morrison and understanding confirmed on 11/25/2020 08:55:51 (ET). Electronically Signed: Venkatesh Messer MD at 8:55 EDT , Service support , Chest X-Ray 11/25/20 09:10 IMPRESSION: Borderline cardiomegaly. The lungs are clear. Electronically Signed: Venkatesh Messer MD at 9:33 EDT , Service support , Stroke Documentation Questions Stroke Team Activated: Yes Reviewed Inclusion/Exclusion criteria: Yes Was Patient considered for Endovascular Intervention?: Yes IV Alteplase (t-PA) Administered: No No contraindications for IV Alteplase (t-PA) administration.: Yes Alteplase (t-PA) risks, benefits, alternative discussed: No Not given: Patient refusal: No Discharge Plan Triage Chief Complaint: Alt LOC ED Provider: Triston Morrison Dx/Rx/DC Orders Instructions: Carotid Artery Problems: Blockage, Blood Sugar Monitoring and ..., Hypoglycemia Steps, ED TIA: Transient Ischemic Attack Prescriptions: No Action aspirin 81 mg tablet,delayed release (DR/EC) 81 mg PO QDAY RF: 0 glimepiride [Amaryl] 4 mg tablet 4 mg PO QAM RF: 0 metformin 1,000 mg tablet 1,000 mg PO BID RF: 0 Levemir FlexTouch U-100 Insuln 100 unit/mL (3 mL) insulin pen 20 unit SC QHS RF: 0 Jardiance 10 mg tablet 10 mg PO DAILY RF: 0 insulin lispro 100 unit/mL insulin pen 10 unit SC RF: 0 nitroglycerin 0.4 mg tablet, sublingual 0.4 mg sublingual Q5M PRN (Reason: chest pain) Qty: 90 RF: 6 amlodipine 10 mg tablet 10 mg PO QDAY Qty: 90 RF: 3 clonidine HCl 0.2 mg tablet 0.2 mg PO QDAY Qty: 90 RF: 3 hydrochlorothiazide 25 mg tablet 25 mg PO QDAY Qty: 90 RF: 3 lisinopril 40 mg tablet 40 mg PO QDAY Qty: 90 RF: 3 atorvastatin 40 mg tablet 40 mg PO QDAY Qty: 90 RF: 3 potassium chloride 10 mEq tablet extended release 10 meq PO QDAY Qty: 90 RF: 3 losartan 100 mg tablet 100 mg PO DAILY Qty: 90 RF: 3 Eliquis 5 mg tablet 5 mg PO BID Qty: 180 RF: 3 carvedilol 12.5 mg tablet 12.5 mg PO BID Qty: 180 RF: 4 Primary Care Provider: Dino Ward Referrals: Dino Ward MD [Primary Care Provider] - Disposition Disposition: Against Medical Advice Discharge Date/Time: 11/25/20 10:43
[2020-11-25 08:36] LABS: Absolute Lymphocyte Count 1.68 X10^3/uL (0.83-4.51); Absolute Neutrophil Count 4.8 X10^3/uL (2.0-7.7); Basophil# 0.09 X10^3/uL; Basophil% 1.1 % (0-1); Eosinophil# 0.34 X10^3/uL; Eosinophils% 4.3 % (0-5); Hematocrit 50.1 % (40-54); Hemoglobin 15.2 g/dL (13.0-16.5); Lymphocyte # 1.68 X10^3/ul (0.83-4.51); Lymphocyte % 21.3 % (19-41); Mean Corp Hgb Conc 30.3 g/dL (32-36); Mean Corpuscular Volume 92.4 fL (80-94); Mean Platelet Vol. 9.3 fl (6.2-12.0); Monocyte# 0.93 X10^3/uL; Monocyte% 11.8 % (0-10); NRBC Flagged by Analyzer 0 % (0-5); Neutrophil # 4.81 X10^3/uL (2.7-7.7); Platelet Count 339 K/mm3 (150-450); RBC Distribution Width CV 14.2 % (11.6-14.6); RBC Distribution Width SD 47.4 fl (35.1-43.9); Red Blood Count 5.42 M/mm3 (4.6-6.2); White Blood Count 7.9 K/mm3 (4.4-11.0)
[2020-11-25] MEDS: Dextrose 50%-Water 25 GM/50 ML DISP.SYRIN IV (08:53)
[2020-11-25 08:54] LABS: International Normalized Ratio 1.3; Prothrombin Time (Protime)PT. 15.9 SECONDS (11.7-14.9)
[2020-11-25 08:55] LABS: Partial Thromboplast Time 32.4 Seconds (24.1-36.2)
[2020-11-25 09:08] LABS: Anion Gap 4 (5-15); BUN 25 mg/dL (7-18); Calcium,Total 9.4 mg/dL (8.5-10.1); Chloride 101 mmol/L (98-107); Creatinine, Serum 0.83 mg/dL (0.70-1.30); EST Glomerular Filtration Rate 97 mL/min (>60); Est Glom Filt Rate - Afr Amer 118 mL/min (>60); Estimated Creatinine Clearance 78.53 ml/min; Glucose 29 mg/dL (74-106); Potassium 3.5 mmol/L (3.5-5.1); Sodium Level 141 mmol/L (136-145)
--- NOTE | 2020-11-25 09:10 | RAD_ITS ---
STUDY: X-RAY CHEST REASON FOR EXAM: Male, 70 years old. Neuro deficit, acute, stroke suspected TECHNIQUE: Single AP portable view of the chest. COMPARISON: Comparison is made with prior study dated 10/19/2020. FINDINGS: EKG electrodes are seen. The lungs are clear and expanded. There is no demonstrated pleural abnormality. Sternal cerclage wires and vascular clips are present from a prior sternotomy and coronary artery bypass graft procedure (CABG). Borderline cardiomegaly. Normal mediastinum and tasia. Normal visualized pulmonary arteries. There is atherosclerotic calcification of the aortic arch with tortuosity. Normal visualized thoracic spine. Normal visualized ribs, clavicles, and shoulders. There is no demonstrated abnormality of the visualized soft tissue structures of the upper abdomen. RAD/Chest 1 View IMPRESSION: Borderline cardiomegaly. The lungs are clear. Electronically Signed: Venkatesh Messer MD at 9:33 EDT , Service support ,
[2020-11-25 11:11] LABS: Bedside Glucose 99 mg/dL (70-110)
[2020-11-25 11:15] LABS: Bedside Glucose 80 mg/dL (70-110)
== END 2020-11-25 10:43 | disposition left against medical advice (07) ==
PROVIDERS: Emergency Provider Student in an Organized Health Care Education/Training Program; PCP Family Medicine
DX: E11.649 Type 2 diabetes mellitus with hypoglycemia without coma (principal); I65.23 Occlusion and stenosis of bilateral carotid arteries; R09.02 Hypoxemia; I25.810 Atherosclerosis of coronary artery bypass graft(s) without angina pectoris; I10 Essential (primary) hypertension; I48.0 Paroxysmal atrial fibrillation; I25.5 Ischemic cardiomyopathy; I25.2 Old myocardial infarction; E78.5 Hyperlipidemia, unspecified; Z95.1 Presence of aortocoronary bypass graft; Z95.5 Presence of coronary angioplasty implant and graft; Z79.82 Long term (current) use of aspirin; Z79.4 Long term (current) use of insulin; Z79.01 Long term (current) use of anticoagulants; Z79.899 Other long term (current) drug therapy; Z86.73 Personal history of transient ischemic attack (TIA), and cerebral infarction without residual deficits; Z87.891 Personal history of nicotine dependence
CPT/HCPCS: 70450; 70496; 70498; 71045; 80048; 82962; 84484; 85025; 85610; 85730; 93005; 96374; 99285; Q9967; A4216

== ENCOUNTER → 2020-12-06 13:20 | Outpatient (CLI) | payer MEDICARE, SELFPAY ==
[2020-11-01 13:23] VITALS: BMI 44.8
[2020-11-25 08:38] VITALS: BMI 48.6
--- NOTE | 2020-12-06 13:27 | CT_ITS ---
HISTORY: Right thigh mass. TECHNIQUE: Routine CT protocol was performed of the right thigh. 2-D reformats were performed by the technologist. A radiation dose optimization technique was used for this scan. # of images incl. paperwork: 617. IV Contrast dosage and agent: None. COMPARISON: US 10/07/2020. FINDINGS: OSSEOUS STRUCTURES: No acute fracture identified. Small sclerotic foci likely bone islands in the distal femur. JOINTS: No dislocation. Mild degenerative change. Mild joint effusion of the knee. SOFT TISSUES: 1.3 x 2.6 cm lymph node in the right groin. 6.8 x 9.3 cm lobulated and heterogeneous mass in the subcutaneous soft tissues of the medial and mid right thigh with mild mass effect on the sartorius muscle. Cystic or necrotic components of the mass with hyperdense or hemorrhagic components. Advanced peripheral vascular disease. Diffuse subcutaneous edema. CT/Extremity Lower without Contra IMPRESSION: 9.3 cm heterogeneous mass in the right medial subcutaneous thigh, concerning for malignancy. Mild right groin lymphadenopathy. Individualized dose optimization techniques were used for this CT. at 1307 Reported and signed by: Michaela Marin MD Electronically Signed: Michaela Marin MD at 13:06 EDT Tel , Service support ,
--- NOTE | 2020-12-06 13:27 | CT_ITS ---
STUDY: CT CHEST, ABDOMEN T PELVIS WITH CONTRAST REASON FOR EXAM: Male, 70 years old. New diagnoses of right thigh leiomyosarcoma. RADIATION DOSAGE (If Supplied By Facility): CTDIvol = ( 27.18 ) mGy, DLP = ( 3290.42 ) mGycm TECHNIQUE: Transaxial imaging was performed following intravenous administration of Oral and amp; IV Readi-CAT and amp; 100mL Isovue-300. Individualized dose optimization techniques were used for this CT. COMPARISON: No relevant priors. FINDINGS: CHEST Small benign-appearing bilateral axillary lymph nodes. Mild increased linear markings in the anterior aspect of the right middle lobe suggestive of scarring. This is 1.2 cm x 1.2 cm noncalcified nodule in the anterior aspect of the left lower lobe. There is a 3.2 cm x 1.1 cm pleural-based density in the lateral posterior aspect of the right lower lobe. There is also evidence of a 2.6 cm pleural-based nodule in the posterior segment of the left lower lobe. Small right pleural effusion. Tiny left pleural effusion. There are calcifications of the coronary arteries. Sternal cerclage wires and vascular clips are present from a prior sternotomy and coronary artery bypass graft procedure (CABG). Enlargement of the subcarinal lymph nodes. There is a 1.8 cm lymph node at level to the aortopulmonary window. Normal hilar regions. Normal unenhanced pulmonary arteries. There is atherosclerotic calcification of the aortic arch with tortuosity and elongation of the aortic arch and descending thoracic aorta. There are mild degenerative changes of the thoracic spine. ABDOMEN There is heterogeneous appearance of the liver. This may be related to fatty infiltration with areas of focal fatty sparing. Normal gallbladder and extrahepatic biliary system. Normal spleen. Normal pancreas. There is a small, circumscribed, smooth, low attenuation right adrenal mass, consistent with an adrenal adenoma. This measures 1.8 cm. Normal left adrenal gland. Normal right kidney. Normal left kidney. There is a small hiatal hernia. Normal small intestine. Normal colon. The appendix is visualized and appears normal. There is diffuse atherosclerotic calcification of the abdominal aorta and its major visceral branches, without a demonstrated aneurysm. Normal inferior vena cava. There is borderline retroperitoneal lymphadenopathy with enlarged nodes no greater than 10mm in the short axis diameter. Diffuse abdominal wall skin thickening with increased markings in the subcutaneous fat. There are diffuse degenerative changes of the visualized lumbar spine. PELVIS Normal urinary bladder. The prostate measures 4.7 cm x 4.7 cm. Central calcifications are seen within. Normal visualized small intestine. Normal visualized colon. There is no pelvic fluid. There is no pelvic lymphadenopathy or mass lesion. There is diffuse atherosclerotic calcification of the pelvic arteries. There is a 4.5 cm x 5.3 cm fat-containing mass in the anterior muscle group of the proximal left thigh. There are diffuse degenerative changes of the visualized lumbar spine. CT/CT Chest, Abd, Pel w/Contrast IMPRESSION: Mildly enlarged subcarinal lymph nodes. Lung nodule in the left lung as well as pleural based nodules in both lower lobes. Heterogeneous appearance of the liver as described. Prostatic enlargement with diffuse fatty infiltration of the liver. 4.5 cm x 5.3 semi fat-containing mass in the anterior musculature but the proximal left thigh. Electronically Signed: Venkatesh Messer MD at 9:09 EDT , Service support ,
[2020-12-06 15:38] LABS: BNP,B-Type NATRIURETIC PEPTIDE 348.6 pg/mL (0-100)
== END ==
PROVIDERS: PCP Family Medicine; Referring Provider Orthopaedic Surgery; Visit Provider Orthopaedic Surgery
DX: I10 Essential (primary) hypertension (principal); I27.20 Pulmonary hypertension, unspecified; R06.00 Dyspnea, unspecified
CPT/HCPCS: 36415; 71260; 73700; 74177; 83880; Q9967

== ENCOUNTER → 2021-01-04 16:52 | Outpatient (CLI) | payer MEDICARE, SELFPAY ==
--- NOTE | 2021-01-04 16:00 | PET_ITS ---
EXAMINATION: FDG PET-CT INDICATIONS: A 70-year-old male with a history of leiomyosarcoma presenting for initial staging examination and evaluation of pulmonary nodularity. COMPARISON EXAMINATION: CT of the chest report dated 12/06/20. INDEX LESION SIZE SUV INTERPRETATION Anteromedial soft tissue compartment right proximal thigh 7.9 cm x 9.8 cm (frame 28) 12.4 Fulfills quantitative criteria for viable neoplasm. NON-INDEX LESION SIZE SUV INTERPRETATION Right lobe thyroid gland 2.3 max Quantitative criteria for viable neoplasm are not fulfilled. Cutaneous right lateral pelvic wall 2.0 Quantitative criteria for viable neoplasm are not fulfilled. TECHNIQUE: Following the intravenous administration of 14.62 mCi of F-18 deoxyglucose via the left antecubital fossa, multiplanar image acquisitions of the head, neck, chest, abdomen and pelvis to level of mid-thigh, lower extremities obtained at one hour post radiopharmaceutical administration contemporaneously interpreted with the current CT of the head, neck, chest, abdomen and pelvis to level of mid-thigh, lower extremities dated 01/04/[address] of the chest report dated 12/06/20 reveal: SERUM GLUCOSE LEVEL: 87 mg/dl. HEIGHT: 67 inches. WEIGHT: 286 lbs. FINDINGS: 1. There is a large heterogeneous focus of enhanced glucose metabolism defined in the anteromedial soft tissue compartment of the right proximal thigh generating a calculated maximum standard uptake value of 12.4. The maximum axial diameter of the corresponding metabolic, morphologic abnormality on review of CT of the pelvis-proximal right lower extremity dated 01/04/21 is 7.9 cm x 9.8 cm. 2. Normal physiologic distribution of the radiopharmaceutical is apparent in the hepatic (2.9) and splenic parenchyma, both renal units, bladder and visualized intestinal tract. The visualized portion of the cerebral cortex demonstrate symmetric and preserved glucose metabolism. Diffuse intestinal tract activity is noted throughout all four quadrants of the abdominal-pelvic retroperitoneum and mesentery consistent with normal physiologic distribution of the radiopharmaceutical. Prominent uptake is defined in the pharyngeal mucosal space to the left of midline which appears associated with the pharyngeal constrictor musculature without evidence of soft tissue thickening most consistent with physiologic tracer uptake. Asymmetric increased radiopharmaceutical concentration is noted in the right lobe of the thyroid gland rendering a calculated maximum standard uptake value of 2.3. Quantitative criteria for viable primary thyroidal neoplasm are not fulfilled. Radiopharmaceutical concentration is observed in the right lateral pelvic wall involving the cutaneous tissues rendering a calculated maximum standard uptake value of 2.0. Quantitative criteria for viable neoplasm are not fulfilled. Pertinent CT findings are as follows. CHEST: A noncalcified density defined in the left lower lung-left lower lobe reveals no evidence of increased glucose metabolism. Bilateral axillary and scattered mediastinal soft tissue with fatty hilus is nonglucose avid. Subtle pleural thickening defined in the bilateral hemithorax reveals no evidence of increased radiotracer distribution. There is evidence of prior median sternotomy. There is atherosclerotic calcification defined in the thoracic aorta without evidence of dilatation-aneurysm formation. Coronary arterial calcification is observed. ABDOMEN AND PELVIS: Atherosclerotic calcification is defined in the abdominal aorta without evidence of dilatation, aneurysm formation. Abdominal-pelvic arterial calcification is demonstrated. Bilateral fat containing inguinal hernias are observed. Colonic diverticulosis is noted without evidence of diverticulitis. Dystrophic calcifications manifest within the prostate gland without evidence of increased tracer uptake. Bilateral fat containing inguinal hernias are noted. Right and left inguinal soft tissue densities subcentimeter in presentation with fatty hilus are ametabolic. Mass formation noted in the anteromedial soft tissue compartment of the right proximal thigh demonstrates heterogeneous quantitative significant increased FDG uptake previously described. SKELETAL: Degenerative changes defined in the cervical, thoracic and lumbar spine demonstrate no evidence of glucose hypermetabolism. There are no sclerotic, mixed sclerotic-lytic and/or primarily lytic changes noted in the visualized skeletal structures demonstrating quantitative significant increased FDG uptake. PET/PET/CT Tumor Base -Thigh Init IMPRESSION: 1. ABNORMAL EXAMINATION INDICATIVE OF MALIGNANT-METASTATIC VIABLE NEOPLASM. 2. Increased FDG concentration observed in the anteromedial soft tissue compartment of the right proximal thigh fulfills quantitative criteria for viable neoplasm. 3. Enhanced tracer uptake observed in the right lobe thyroid gland does not fulfill quantitative criteria for viable thyroidal neoplasia. (Darren Herrmann, et al, Journal of Clinical Endocrinology and Metabolism, 88:4100, 2003). 4. Subtle increased tracer uptake visualized in the cutaneous aspect of the right lateral pelvic wall does not fulfill quantitative criteria for malignant transformation. Electronic Signature Haim Armijo D.O. Accurate Quantification of SUVs for this report are calculated using the exclusive [employer], ([place]. Patent No. [id number] [id number] 983). Standardization and correction of the FDG SUV metric exclusively available with [employer] intellectual property, allow for vendor non-specific objective quantitative sequential FDG PET-CT comparison and otherwise unobtainable optimization of the sensitivity and specificity of the examination. Electronically Signed: Haim Armijo DO at 9:42 EDT Tel , Service support ,
== END ==
PROVIDERS: PCP Family Medicine; Referring Provider Thoracic Surgery (Cardiothoracic Vascular Surgery); Visit Provider Thoracic Surgery (Cardiothoracic Vascular Surgery)
DX: R91.1 Solitary pulmonary nodule (principal)
CPT/HCPCS: 78815; A9552

== ENCOUNTER → 2021-02-24 16:29 | Outpatient (CLI) | payer MEDICARE, SELFPAY ==
--- NOTE | 2021-02-24 16:31 | RAD_ITS ---
STUDY: X-RAY CHEST REASON FOR EXAM: Male, 70 years old. COPD TECHNIQUE: Frontal and lateral views COMPARISON: 11/25/2020. FINDINGS: Sternotomy wires over the mediastinum are stable. The lungs are clear and expanded. There is no demonstrated pleural abnormality. Normal size heart. Normal mediastinum and tasia. Normal visualized pulmonary arteries. Normal visualized aortic arch and descending thoracic aorta. Normal visualized thoracic spine. Normal visualized ribs, clavicles, and shoulders. There is no demonstrated abnormality of the visualized soft tissue structures of the upper abdomen. RAD/Chest PA and Lateral IMPRESSION: Normal x-ray examination of the chest. Electronically Signed: Donaldo Schafer DO at 16:54 EDT Tel [phone], Service support ,
== END ==
PROVIDERS: PCP Family Medicine; Referring Provider Internal Medicine Pulmonary Disease; Visit Provider Internal Medicine Pulmonary Disease
DX: J44.9 Chronic obstructive pulmonary disease, unspecified (principal)
CPT/HCPCS: 71046

== ENCOUNTER → 2021-04-04 | Outpatient (CLI) | payer MEDICARE, SELFPAY ==
[2021-04-04 14:37] LABS: Absolute Lymphocyte Count 1.03 X10^3/uL (0.83-4.51); Absolute Neutrophil Count 3.9 X10^3/uL (2.0-7.7); Basophil# 0.06 X10^3/uL; Eosinophil# 0.38 X10^3/uL; Eosinophils% 6.5 % (0-5); Hemoglobin 7.7 g/dL (13.0-16.5); Lymphocyte # 1.03 X10^3/ul (0.83-4.51); Lymphocyte % 17.5 % (19-41); Mean Corp Hgb Conc 29.6 g/dL (32-36); Mean Corpuscular Hgb 27.7 pg (27.0-32.0); Mean Corpuscular Volume 93.5 fL (80-94); Monocyte% 8.5 % (0-10); NRBC Flagged by Analyzer 0 % (0-5); Neutrophil # 3.89 X10^3/uL (2.7-7.7); Platelet Count 301 K/mm3 (150-450); RBC Distribution Width CV 15.8 % (11.6-14.6); RBC Distribution Width SD 54.4 fl (35.1-43.9); Red Blood Count 2.78 M/mm3 (4.6-6.2); White Blood Count 5.9 K/mm3 (4.4-11.0)
[2021-04-04 14:51] LABS: ALB/GLOB Ratio 0.6 RATIO (0.9-2.4); AST(SGOT) 7 U/L (15-37); Alanine Aminotransfer ALT/SGPT 14 U/L (16-61); Albumin, Serum 1.9 g/dL (3.2-5.0); Alkaline Phosphatase 60 U/L (45-117); Anion Gap 5 (5-15); BUN 12 mg/dL (7-18); BUN/Creat Ratio 20.5 RATIO (10-20); Calcium,Total 8.8 mg/dL (8.5-10.1); Chloride 103 mmol/L (98-107); Creatinine, Serum 0.58 mg/dL (0.70-1.30); EST Glomerular Filtration Rate 146 mL/min (>60); Est Glom Filt Rate - Afr Amer 177 mL/min (>60); Glucose 144 mg/dL (74-106); Potassium 4.6 mmol/L (3.5-5.1); Protein, Total 4.9 g/dL (6.4-8.2); Sodium Level 140 mmol/L (136-145)
== END | disposition home or self-care (01) ==
LOC: LABSPEC 14:13
PROVIDERS: PCP Family Medicine
DX: C49.21 Malignant neoplasm of connective and soft tissue of right lower limb, including hip (principal)
CPT/HCPCS: 80053; 85025

== ENCOUNTER → 2021-04-11 | Outpatient (CLI) | payer MEDICARE, SELFPAY ==
[2021-04-11 16:29] LABS: Absolute Lymphocyte Count 1.03 X10^3/uL (0.83-4.51); Absolute Neutrophil Count 2.3 X10^3/uL (2.0-7.7); Basophil# 0.05 X10^3/uL; Basophil% 1.2 % (0-1); Eosinophils% 4.8 % (0-5); Hemoglobin 7.9 g/dL (13.0-16.5); Lymphocyte # 1.03 X10^3/ul (0.83-4.51); Lymphocyte % 24.9 % (19-41); Mean Corp Hgb Conc 30.4 g/dL (32-36); Mean Corpuscular Volume 92.2 fL (80-94); Mean Platelet Vol. 9.4 fl (6.2-12.0); Monocyte# 0.59 X10^3/uL; Monocyte% 14.3 % (0-10); NRBC Flagged by Analyzer 0 % (0-5); Neutrophil # 2.25 X10^3/uL (2.7-7.7); Neutrophil % 54.3 % (47-70); Platelet Count 316 K/mm3 (150-450); RBC Distribution Width CV 14.9 % (11.6-14.6); RBC Distribution Width SD 50.2 fl (35.1-43.9); Red Blood Count 2.82 M/mm3 (4.6-6.2); White Blood Count 4.1 K/mm3 (4.4-11.0)
[2021-04-11 16:47] LABS: ALB/GLOB Ratio 0.6 RATIO (0.9-2.4); AST(SGOT) 7 U/L (15-37); Alanine Aminotransfer ALT/SGPT 10 U/L (16-61); Albumin, Serum 1.9 g/dL (3.2-5.0); Alkaline Phosphatase 62 U/L (45-117); Anion Gap 7 (5-15); BUN 18 mg/dL (7-18); BUN/Creat Ratio 28.7 RATIO (10-20); Calcium,Total 8.3 mg/dL (8.5-10.1); Chloride 102 mmol/L (98-107); Creatinine, Serum 0.63 mg/dL (0.70-1.30); EST Glomerular Filtration Rate 135 mL/min (>60); Est Glom Filt Rate - Afr Amer 163 mL/min (>60); Globulin 3.2 g/dL (2.2-4.2); Glucose 158 mg/dL (74-106); Potassium 4.9 mmol/L (3.5-5.1); Protein, Total 5.1 g/dL (6.4-8.2); Sodium Level 138 mmol/L (136-145)
== END | disposition home or self-care (01) ==
PROVIDERS: PCP Family Medicine
DX: C49.21 Malignant neoplasm of connective and soft tissue of right lower limb, including hip (principal)
CPT/HCPCS: 80053; 85025

== ENCOUNTER 2021-04-15 17:18 | Emergency (ER) | payer MEDICARE, SELFPAY ==
[2021-04-15 17:18] VITALS: BP 144/61; PULSE 89; RESP 16; TEMP 36.7; O2SAT 94; BMI 44.0
[2021-04-15] MEDS: oxyCODONE 5 MG Tablet PO (18:29)
[2021-04-15] MEDS: HYDROmorphone 1 MG/ML Syringe IM (20:11)
--- NOTE | 2021-04-15 20:50 | ED.VIS.LOWEX ---
HPI History of Present Illness HPI Narrative: Patient presents for wound check of his right upper thigh. 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 He has been seen by Dr. Sims at [facility]. He states that Dr. Collazo removed the leiomyosarcoma, and he is post have a skin graft over his open wound on his right thigh. Is being treated with a wound VAC. However, he went to see Dr. Sims today with plastic surgery, who applied a wet-to-dry dressing. As he was leaving the office, he stepped down and twisted his right thigh. When his home health care nurses arrived at around 3:30 in the afternoon, they remove the dressing and noticed that there was a large amount of blood and a large clot. They state that it appeared that he had ripped his quadricep muscle/vastus lateralis. He does take Lovenox injections. He was told to come to the ED to get the bleeding to stop. There is a KARLY drain in place. Chief Complaint: Wound PFSH PFSH Medical History Atherosclerosis of coronary artery bypass graft without angina pectoris Bilateral carotid artery stenosis CVA (cerebral vascular accident) Diabetes Dyspnea on exertion Essential hypertension Fatigue History of myocardial infarction Hyperlipidemia Hypertension Ischemic cardiomyopathy Leiomyosarcoma of lower extremity Lower back pain Neuropathy Obesity Paroxysmal atrial fibrillation Type 2 diabetes mellitus Home Medications aspirin 81 mg tablet,delayed release 81 mg PO QDAY 11/09/17 [History Last Taken Unknown] glimepiride 4 mg tablet 4 mg PO QAM 11/09/17 [History Last Taken Unknown] metformin 1,000 mg tablet 1,000 mg PO BID 11/09/17 [History Last Taken Unknown] empagliflozin 10 mg tablet 10 mg PO DAILY 02/10/19 [History Last Taken Unknown] insulin detemir U-100 100 unit/mL (3 mL) subcutaneous pen 20 unit SC QHS ml 03/18/20 [History Last Taken Unknown] insulin lispro 100 unit/mL subcutaneous pen 10 unit SC ml 03/18/20 [History Last Taken Unknown] amlodipine 10 mg tablet 10 mg PO QDAY #90 tab 07/26/20 [Rx Last Taken Unknown] atorvastatin 40 mg tablet 40 mg PO QDAY #90 tab 07/26/20 [Rx Last Taken Unknown] clonidine HCl 0.2 mg tablet 0.2 mg PO QDAY #90 tab 07/26/20 [Rx Last Taken Unknown] lisinopril 40 mg tablet 40 mg PO QDAY #90 tab 07/26/20 [Rx Last Taken Unknown] losartan 100 mg tablet 100 mg PO DAILY #90 tab 07/26/20 [Rx Last Taken Unknown] potassium chloride 10 mEq tablet,extended release 10 meq PO QDAY #90 tab 07/26/20 [Rx Last Taken Unknown] apixaban 5 mg tablet 5 mg PO BID #180 tab 08/03/20 [Rx Last Taken Unknown] nitroglycerin 0.4 mg sublingual tablet 0.4 mg SUBLINGUAL Q5M PRN #90 tab 09/23/20 [Rx Last Taken Unknown] carvedilol 12.5 mg tablet 12.5 mg PO BID #180 tab 11/16/20 [Rx Last Taken Unknown] albuterol sulfate 2.5 mg INHALATION ONCE ml 01/03/21 [History Last Taken Unknown] fluticasone fur. 200 mcg-umeclid 62.5 mcg-vilant 25 mcg inhalat.powder ea INHALATION 01/03/21 [History Last Taken Unknown] levothyroxine 50 mcg tablet ea PO 01/03/21 [History Last Taken Unknown] prednisone 10 mg tablet ea PO 01/03/21 [History Last Taken Unknown] furosemide 20 mg tablet 20 mg PO DAILY #90 tab 01/07/21 [Rx Last Taken Unknown] flash glucose sensor #2 ea 03/08/21 [Rx Last Taken Unknown] dulaglutide 0.75 mg/0.5 mL subcutaneous pen injector 0.75 mg SUBCUT QWEEK #2 ml 04/15/21 [Rx Last Taken Unknown] oxycodone 5 mg PO Q6H PRN 3 Days #12 tab 04/15/21 [Rx Last Taken Unknown] Allergy/AdvReac Type Severity Reaction Status Date / Time No Known Allergies Allergy Verified 01/03/21 09:10 Family History Father CAD (coronary artery disease) Hx of CABG, Onset Age: 56 Mother Cancer Surgical History Aortocoronary bypass status (~07/12/00) History of detached retina repair Postsurgical percutaneous transluminal coronary angioplasty (PTCA) status Presence of stent in coronary artery (~05/22/12) Social History Smoking Status: Former smoker how long ago did patient quit smokin years ago alcohol intake: never substance use type: does not use caffeine: Yes Type: coffee Number of servings: 2 and tea Number of servings: 6 ROS ROS ED ROS Narrative Constitutional: No fever, no chills. HEENT: No sore throat. No neck pain. No loss of vision. No rhinorrhea. Cardiovascular: No chest pain. No palpitations. No pedal edema. Respiratory: No cough, no shortness of breath. Abdominal: No abdominal pain. No nausea. No vomiting. Genitourinary: No dysuria. No hematuria. Musculoskeletal: Pain in a large open wound right thigh. Positive bleeding. No arthralgias. Neurologic: No headaches. No dizziness. No lightheadedness. Skin: No rash. No change in color. Psychiatric: No depression. No anxiety. EXAM Physical Exam Narrative Exam Narrative: Afebrile. Vital signs noted. HEENT: Normocephalic. Atraumatic. PERRL, EOMI. Neck soft and supple. No point tenderness or step off. Cardiovascular: Regular rate and rhythm. No murmurs, rubs, or gallops appreciated. Respiratory: No tachypnea. Lungs clear to auscultation bilaterally. Gastrointestinal: Abdomen soft, obese, nontender, with normoactive bowel sounds. No rebound or guarding. Neurological: Awake. Alert. Nonfocal, nonlateralizing. Skin: No rash. Normal color. No pallor. There is a large open surgical wound on his right thigh. There is a large clot noted in the vastus lateralis area. No acute hemorrhage. Musculoskeletal: No pedal edema. Full range of motion extremities. Small amount of hematoma at the junction of the skin and muscle in the medial edge of the wound on the distal thigh. There is a larger hematoma and an area of what appeared to be torn muscle of the vastus lateralis and lateral quadriceps. Const Vital Signs: 04/15/21 17:18 Temperature 98.1 F Temperature Source Oral Pulse Rate 89 Respiratory Rate 16 Blood Pressure 144/61 H Blood Pressure Mean 88 Pulse Ox 94 Oxygen Delivery Method Room Air MDM MDM MDM Narrative Medical decision making narrative: I was able to discuss patient with Dr. Sims. [facility] is not excepting transfers even to the ED. There is no need to suture the torn muscle of the vastus lateralis and quadriceps. The bleeding has stopped. I was instructed to have the patient hold his Lovenox for the next 2 days, and have wound care come see the patient to change his dressing. Wet-to-dry dressing of Kerlix was applied with slight compression with Karthik bandage. This was after the large hematoma had been removed, and the muscle rinsed with normal saline. KARLY drain was left exposed to continue stripping the tubing and seeing output. Patient did receive Dilaudid 1 mg intramuscularly after oxycodone 5 mg. States he only has 2 tablets left at home. He was given a prescription for the next 3 days. I feel he can be discharged safely home with follow-up. He is to return with rebleed, new or worsening symptoms. Discharge Plan Triage Chief Complaint: Wound Other Complaint: Fall ED Provider: Mike Lewis Dx/Rx/DC Orders Clinical Impression: Encounter for wound re-check, Post-op bleeding Instructions: Wound Care, ED Wound Check (No Infection) Prescriptions: New oxycodone 5 mg tablet 5 mg PO Q6H PRN (Reason: pain) 3 Days Qty: 12 RF: 0 No Action aspirin 81 mg tablet,delayed release (DR/EC) 81 mg PO QDAY RF: 0 glimepiride [Amaryl] 4 mg tablet 4 mg PO QAM RF: 0 metformin 1,000 mg tablet 1,000 mg PO BID RF: 0 Levemir FlexTouch U-100 Insuln 100 unit/mL (3 mL) insulin pen 20 unit SC QHS RF: 0 Jardiance 10 mg tablet 10 mg PO DAILY RF: 0 insulin lispro 100 unit/mL insulin pen 10 unit SC RF: 0 nitroglycerin 0.4 mg tablet, sublingual 0.4 mg sublingual Q5M PRN (Reason: chest pain) Qty: 90 RF: 6 prednisone 10 mg tablet PO RF: 0 albuterol sulfate 2.5 mg /3 mL (0.083 %) solution for nebulization 2.5 mg inhalation ONCE RF: 0 Trelegy Ellipta 200-62.5-25 mcg blister with device inhalation RF: 0 levothyroxine 50 mcg tablet PO RF: 0 amlodipine 10 mg tablet 10 mg PO QDAY Qty: 90 RF: 3 clonidine HCl 0.2 mg tablet 0.2 mg PO QDAY Qty: 90 RF: 3 lisinopril 40 mg tablet 40 mg PO QDAY Qty: 90 RF: 3 atorvastatin 40 mg tablet 40 mg PO QDAY Qty: 90 RF: 3 potassium chloride 10 mEq tablet extended release 10 meq PO QDAY Qty: 90 RF: 3 losartan 100 mg tablet 100 mg PO DAILY Qty: 90 RF: 3 Eliquis 5 mg tablet 5 mg PO BID Qty: 180 RF: 3 carvedilol 12.5 mg tablet 12.5 mg PO BID Qty: 180 RF: 4 furosemide 20 mg tablet 20 mg PO DAILY Qty: 90 RF: 3 (DME) FreeStAIT Belinda 2 Sensor Kit See Rx Instructions .ROUTE .MEDSUPPLY Qty: 2 RF: 0 Trulicity 0.75 mg/0.5 mL pen injector 0.75 mg subcut QWEEK Qty: 2 RF: 1 Primary Care Provider: Dino Ward Referrals: Dino Ward MD [Primary Care Provider] - Activity Restrictions/Additional Instructions: Follow-up with Dr. Sims on Sunday. Call wound care to see if they can change the dressing on your right thigh on Sunday. Disposition Disposition: Home, Self Care
--- NOTE | 2021-04-15 21:28 | ED.RN ---
THIS NURSE CONTACTED [facility] TO HELP TRANSPORT THE PT. PHYSICIAN ETA 9 HOURS. [facility] REFUSED TO TRANSPORT.
[2021-04-15 21:52] VITALS: BP 148/67; PULSE 72; RESP 16; O2SAT 94
--- NOTE | 2021-04-15 21:53 | ED.RN ---
Dr Khanna and Anil RN apply wet to dry dressing to right upper thigh per patients surgeon at [facility]. Dressing was then reinforced at discharge due to patient bleeding through. Dr Khanna aware. Pt sent home with dressing supplies. Pt assisted into wheelchair and taken out to family vehicle where 3 RN's assist patient into the car. Pt states there is multiple family members meeting them at home to help them get in. Charge nurse tells family if they are unable to get patient into the house to call 911. Pt and family agree to plan and denies further needs.
== END 2021-04-15 21:55 | disposition home or self-care (01) ==
PROVIDERS: Emergency Provider Emergency Medicine; PCP Family Medicine
DX: Z48.00 Encounter for change or removal of nonsurgical wound dressing (principal); L76.22 Postprocedural hemorrhage of skin and subcutaneous tissue following other procedure; I25.2 Old myocardial infarction; I25.810 Atherosclerosis of coronary artery bypass graft(s) without angina pectoris; Z87.891 Personal history of nicotine dependence
CPT/HCPCS: 96372; 99284

== ENCOUNTER → 2021-04-18 15:34 | Outpatient (CLI) | payer MEDICARE, SELFPAY ==
[2021-04-18 16:40] LABS: Absolute Lymphocyte Count 0.94 X10^3/uL (0.83-4.51); Absolute Neutrophil Count 3.7 X10^3/uL (2.0-7.7); Basophil# 0.08 X10^3/uL; Basophil% 1.4 % (0-1); Eosinophil# 0.42 X10^3/uL; Eosinophils% 7.3 % (0-5); Hemoglobin 7.2 g/dL (13.0-16.5); Lymphocyte # 0.94 X10^3/ul (0.83-4.51); Lymphocyte % 16.3 % (19-41); Mean Corpuscular Hgb 27.7 pg (27.0-32.0); Mean Corpuscular Volume 92.3 fL (80-94); Mean Platelet Vol. 9.9 fl (6.2-12.0); Monocyte% 10.4 % (0-10); NRBC Flagged by Analyzer 0 % (0-5); Neutrophil # 3.68 X10^3/uL (2.7-7.7); Neutrophil % 63.7 % (47-70); Platelet Count 309 K/mm3 (150-450); RBC Distribution Width CV 14.4 % (11.6-14.6); RBC Distribution Width SD 48.4 fl (35.1-43.9); White Blood Count 5.8 K/mm3 (4.4-11.0)
[2021-04-18 16:41] LABS: ALB/GLOB Ratio 0.7 RATIO (0.9-2.4); AST(SGOT) 6 U/L (15-37); Alanine Aminotransfer ALT/SGPT 10 U/L (16-61); Albumin, Serum 1.9 g/dL (3.2-5.0); Alkaline Phosphatase 57 U/L (45-117); Anion Gap 7 (5-15); BUN 11 mg/dL (7-18); BUN/Creat Ratio 18.3 RATIO (10-20); Calcium,Total 8.5 mg/dL (8.5-10.1); Chloride 104 mmol/L (98-107); EST Glomerular Filtration Rate 142 mL/min (>60); Est Glom Filt Rate - Afr Amer 172 mL/min (>60); Globulin 2.9 g/dL (2.2-4.2); Glucose 180 mg/dL (74-106); Potassium 4.9 mmol/L (3.5-5.1); Protein, Total 4.8 g/dL (6.4-8.2); Sodium Level 140 mmol/L (136-145)
== END ==
PROVIDERS: PCP Family Medicine
DX: C49.21 Malignant neoplasm of connective and soft tissue of right lower limb, including hip (principal)
CPT/HCPCS: 80053; 85025

== ENCOUNTER 2021-06-17 13:00 | Outpatient (CLI) | payer MEDICARE, SELFPAY ==
[2021-06-17 13:08] LABS: Hematocrit 30.1 % (40-54); Hemoglobin 8.8 g/dL (13.0-16.5); Mean Corp Hgb Conc 29.2 g/dL (32-36); Mean Corpuscular Hgb 24.6 pg (27.0-32.0); Mean Corpuscular Volume 84.1 fL (80-94); Mean Platelet Vol. 9.5 fl (6.2-12.0); Platelet Count 334 K/mm3 (150-450); RBC Distribution Width CV 15.2 % (11.6-14.6); RBC Distribution Width SD 46.5 fl (35.1-43.9); Red Blood Count 3.58 M/mm3 (4.6-6.2); White Blood Count 6.1 K/mm3 (4.4-11.0)
[2021-06-17 13:36] LABS: Anion Gap 3 (5-15); BNP,B-Type NATRIURETIC PEPTIDE 655.8 pg/mL (0-100); BUN 20 mg/dL (7-18); BUN/Creat Ratio 26.1 RATIO (10-20); Chloride 103 mmol/L (98-107); Creatinine, Serum 0.77 mg/dL (0.70-1.30); EST Glomerular Filtration Rate 107 mL/min (>60); Est Glom Filt Rate - Afr Amer 129 mL/min (>60); Glucose 136 mg/dL (74-106); Potassium 4.8 mmol/L (3.5-5.1); Sodium Level 139 mmol/L (136-145)
== END 2021-06-17 23:59 | disposition short-term general hospital (02) ==
LOC: LABSPEC 13:01
PROVIDERS: PCP Family Medicine; Referring Provider Internal Medicine Cardiovascular Disease; Visit Provider Internal Medicine Cardiovascular Disease
DX: C49.21 Malignant neoplasm of connective and soft tissue of right lower limb, including hip (principal); I50.9 Heart failure, unspecified; I25.5 Ischemic cardiomyopathy; R06.02 Shortness of breath
CPT/HCPCS: 80048; 83880; 85027

== ENCOUNTER 2021-06-28 11:08 | Inpatient (IN) | payer MEDICARE, OTHER, SELFPAY ==
[2021-06-28] VITALS (14 sets, daily range): BP systolic 151–168; BP diastolic 77–95; PULSE 78–103; RESP 18–24; TEMP 36.5–37.2; O2SAT 87–95; BMI 39.1; BMI 43.6
--- NOTE | 2021-06-28 13:02 | EKG12_ITS ---
Test Reason : SOB Blood Pressure : / mmHG Vent. Rate : 085 BPM Atrial Rate : 312 BPM P-R Int : 000 ms QRS Dur : 118 ms QT Int : 368 ms P-R-T Axes : 000 071 021 degrees QTc Int : 437 ms Atrial fibrillation with premature ventricular or aberrantly conducted complexes Poor R wave progression Nonspecific ST and T wave abnormality Abnormal ECG Confirmed by JATIN GONGORA, PRERI ([id number]), supervising editor news reel ANDERSON SCHAEFFER ([id number]) on 06/29/2021 11:57:00 AM Referred By: VASYL Confirmed By:PERRI STEINER MD
--- NOTE | 2021-06-28 13:03 | CT_ITS ---
STUDY: CTA CHEST REASON FOR EXAM: Male, 70 years old. Chest pain. Hypoxia and shortness of breath. History of leiomyosarcoma of the right thigh. RADIATION DOSAGE (If Supplied By Facility): CTDIvol = ( 19.79 ) mGy, DLP = ( 574.29 ) mGycm TECHNIQUE: The examination was performed with the intravenous administration of IV 100mL Isovue-370. Post-processing of the angiographic images was performed, with multiplanar reformation and 3D reconstruction. Individualized dose optimization techniques were used for this CT. COMPARISON: Comparison is made with prior study dated 12/06/2020. FINDINGS: Normal enhancement of the main pulmonary artery and right and left pulmonary arteries. Normal enhancement of the bilateral peripheral pulmonary arteries. There is no demonstrated pulmonary embolism. There is atherosclerotic calcification of the aortic arch with tortuosity. There is no demonstrated aortic dissection. Sternal cerclage wires and vascular clips are present from a prior sternotomy and coronary artery bypass graft procedure (CABG). There are calcifications of the coronary arteries. Normal mediastinum. Normal hilar regions. Normal visualized trachea and bronchi. The lungs are well expanded. Bilateral pleural effusions right greater than left with bibasilar atelectasis more prominent on the right side. There is evidence of multiple bilateral pulmonary nodules in comparison with the metastatic disease. There is a 2.1 synovitis to 0.2 cm peripheral based infiltrate in the anterior lateral aspect of the right upper lobe. Normal chest wall structures. There are degenerative changes of thoracic spine. 2.7 cm nodule in the right adrenal gland. There is hyperplasia of the left adrenal gland. CT/CTA Chest W/WO Contrast IMPRESSION: Increased number of nodules in both lungs suggestive of progressive metastatic deposits. Bilateral pleural effusions right greater than left with bibasilar atelectasis worse on the right side. Electronically Signed: Venkatesh Messer MD at 14:30 EST ,
[2021-06-28] MEDS: Ipratropium/Albuterol Sulfate 3 ML AMPUL.NEB INHALATION (13:15)
[2021-06-28 13:22] LABS: Absolute Lymphocyte Count 0.71 X10^3/uL (0.83-4.51); Absolute Neutrophil Count 5.2 X10^3/uL (2.0-7.7); Basophil# 0.04 X10^3/uL; Basophil% 0.6 % (0-1); Eosinophil# 0.11 X10^3/uL; Eosinophils% 1.7 % (0-5); Hematocrit 34.2 % (40-54); Hemoglobin 9.2 g/dL (13.0-16.5); Lymphocyte # 0.71 X10^3/ul (0.83-4.51); Lymphocyte % 10.7 % (19-41); Mean Corp Hgb Conc 26.9 g/dL (32-36); Mean Corpuscular Hgb 23.1 pg (27.0-32.0); Mean Corpuscular Volume 85.9 fL (80-94); Mean Platelet Vol. 9.5 fl (6.2-12.0); Monocyte# 0.56 X10^3/uL; Monocyte% 8.4 % (0-10); NRBC Flagged by Analyzer 0 % (0-5); Neutrophil # 5.17 X10^3/uL (2.7-7.7); Platelet Count 318 K/mm3 (150-450); RBC Distribution Width CV 16.5 % (11.6-14.6); RBC Distribution Width SD 50.7 fl (35.1-43.9); Red Blood Count 3.98 M/mm3 (4.6-6.2); White Blood Count 6.6 K/mm3 (4.4-11.0)
[2021-06-28 13:40] LABS: ALB/GLOB Ratio 0.7 RATIO (0.9-2.4); AST(SGOT) 8 U/L (15-37); Alanine Aminotransfer ALT/SGPT 11 U/L (16-61); Alkaline Phosphatase 77 U/L (45-117); Anion Gap 3 (5-15); BUN 26 mg/dL (7-18); BUN/Creat Ratio 31.4 RATIO (10-20); Calcium,Total 8.8 mg/dL (8.5-10.1); Chloride 97 mmol/L (98-107); Creatinine, Serum 0.83 mg/dL (0.70-1.30); EST Glomerular Filtration Rate 98 mL/min (>60); Est Glom Filt Rate - Afr Amer 118 mL/min (>60); Estimated Creatinine Clearance 78.53 ml/min; Globulin 4.4 g/dL (2.2-4.2); Glucose 220 mg/dL (74-106); Potassium 3.9 mmol/L (3.5-5.1); Protein, Total 7.4 g/dL (6.4-8.2); Sodium Level 136 mmol/L (136-145); Troponin-I HS 22 pg/mL (3.0-78.0)
--- NOTE | 2021-06-28 15:27 | ED.VIS.DYS ---
HPI History of Present Illness Chief Complaint: Shortness of Breath Informant: patient Onset/Context/Timing Onset: Weeks (3) Context: gradual Timing: Continuous Quality: Positive for Dyspnea on exertion Worsened by: Exertion Relieved by: Rest Associated Symptoms rhinorrhea; Negative for cough, post nasal drip, ear pain, fever, sore throat, chills, clear sputum, white sputum, yellow sputum or green sputum Narrative Narrative: Patient presents with shortness of breath that has been getting worse over the past 3 weeks. Patient states his breathing is worse with any exertion. Patient states it is better with rest. Patient states he has oxygen at home but he does not have an oxygen concentrator. Patient states his breathing is worse in the morning. Patient states that he has been increasing his oxygen at home with minimal improvement. Patient states he has been using home aerosols with minimal improvement. Patient admits to some rhinorrhea. Patient denies any fevers or chills. Patient denies any chest pain. Patient had a recent surgery on his right thigh for a cancerous mass and skin graft. PE Risk Factors: Positive for Cancer and Recent surgery; Negative for OCP + Smoking + > 35, Prior DVT or PE, Recent immobilization and Recent travel [facility] Medical History (Updated 06/28/21 @ 16:16 by Shamika Gallego NP, SERVICE LINE COORDINATOR-C) Atherosclerosis of coronary artery bypass graft without angina pectoris Atrial fibrillation Bilateral carotid artery stenosis Cancer COPD (chronic obstructive pulmonary disease) Coronary artery disease CVA (cerebral vascular accident) Diabetes Dyspnea on exertion Essential hypertension Fatigue Former smoker History of myocardial infarction Hyperlipidemia Hypertension Hypothyroidism Ischemic cardiomyopathy Lower back pain Myocardial infarct Neuropathy Obesity On home oxygen therapy Paroxysmal atrial fibrillation Type 2 diabetes mellitus Home Medications aspirin 81 mg tablet,delayed release 81 mg PO DAILY 11/09/17 [History Last Taken 06/28/21] glimepiride 4 mg tablet 4 mg PO DAILY 11/09/17 [History Last Taken 06/28/21] metformin 1,000 mg tablet 1,000 mg PO BID 11/09/17 [History Last Taken 06/28/21] nitroglycerin 0.4 mg sublingual tablet 0.4 mg SUBLINGUAL Q5M PRN #90 tab 09/23/20 [Rx Last Taken Unknown] flash glucose sensor #2 ea 03/08/21 [Rx Last Taken Unknown] fluticasone fur. 200 mcg-umeclid 62.5 mcg-vilant 25 mcg inhalat.powder 1 inh INHALATION DAILY ea 06/20/21 [History Last Taken 06/28/21] levothyroxine 50 mcg tablet 50 mcg PO DAILY tab 06/20/21 [History Last Taken 06/28/21] albuterol sulfate 2.5 mg INHALATION BID 06/28/21 [History Last Taken 06/28/21] amlodipine 10 mg PO QDAY 06/28/21 [History Last Taken 06/28/21] apixaban [Eliquis] 5 mg PO BID 06/28/21 [History Last Taken 06/28/21] atorvastatin 40 mg PO DAILY 06/28/21 [History Last Taken 06/27/21] carvedilol 12.5 mg PO BID 06/28/21 [History Last Taken 06/28/21] clonidine HCl 0.2 mg PO DAILY 06/28/21 [History Last Taken 06/28/21] dulaglutide [Trulicity] 0.75 mg SUBCUT TU 06/28/21 [History Last Taken 06/21/21] furosemide 40 mg PO DAILY 06/28/21 [History Last Taken 06/28/21] lisinopril 40 mg PO DAILY 06/28/21 [History Last Taken 06/28/21] Allergy/AdvReac Type Severity Reaction Status Date / Time No Known Allergies Allergy Verified 06/28/21 11:23 Family History Father CAD (coronary artery disease) Hx of CABG, Onset Age: 56 Mother Cancer Surgical History (Updated 06/28/21 @ 16:16 by Shamika Gallego NP, SERVICE LINE COORDINATOR-C) Aortocoronary bypass status (~07/12/00) History of coronary artery stent placement History of detached retina repair Leiomyosarcoma of lower extremity Postsurgical percutaneous transluminal coronary angioplasty (PTCA) status Presence of stent in coronary artery (~05/22/12) Social History Smoking Status: Former smoker how long ago did patient quit smokin years ago alcohol intake: never substance use type: does not use caffeine: Yes Type: coffee Number of servings: 2 and tea Number of servings: 6 ROS ROS ED Constitutional Constitutional ED: Reports chills; Denies fever(s) Eyes Eyes: Denies blurry vision or change in vision ENT ENT ED: Reports rhinorrhea; Denies sore throat Cardiovascular Cardiovascular: Denies chest pain or palpitations Respiratory/Chest Respiratory/Chest: Reports dyspnea; Denies cough Gastrointestinal Gastrointestinal: Denies nausea or vomiting Genitourinary Genitourinary ED: Denies dysuria or hematuria Musculoskeletal Musculoskeletal: Denies back pain or neck pain Integumentary Denies abscess or rash Neurologic Neurologic: Reports weakness; Denies headache(s) Allergic/Immunologic Allergic/Immunologic ED: Denies mouth swelling or urticaria EXAM Physical Exam Const Vital Signs: 06/28/21 11:17 06/28/21 12:22 06/28/21 12:46 Temperature 97.7 F L 97.7 F L Temperature Source Temporal Temporal Pulse Rate 85 79 Respiratory Rate 18 22 H Respiratory Effort Respiratory Pattern Blood Pressure 156/79 H 151/82 H Blood Pressure Mean 104 105 Pulse Ox 90 87 91 Oxygen Delivery Method Nasal Cannula Nasal Cannula Nasal Cannula Oxygen Flow Rate (L/min) 2 2 4 06/28/21 13:16 06/28/21 13:35 06/28/21 14:13 Temperature 98.9 F Temperature Source Temporal Pulse Rate 90 98 Respiratory Rate 18 18 Respiratory Effort Short of Breath Respiratory Pattern Normal Tachypnea Blood Pressure 157/80 H Blood Pressure Mean 105 Pulse Ox 91 93 Oxygen Delivery Method Nasal Cannula Nasal Cannula Oxygen Flow Rate (L/min) 5 5 06/28/21 16:07 06/28/21 16:13 06/28/21 16:18 Temperature 98.9 F Temperature Source Temporal Pulse Rate 98 86 89 Respiratory Rate 18 24 H 22 H Respiratory Effort Respiratory Pattern Tachypnea Blood Pressure 157/80 H Blood Pressure Mean 105 Pulse Ox 90 95 Oxygen Delivery Method Nasal Cannula Nasal Cannula Oxygen Flow Rate (L/min) 6 6 Positive well nourished and well developed General Appearance ED: well developed HEENT Reports moist mucous membranes Neck supple and no JVD Resp normal respiratory effort Auscultation: wheezes throughout and diminished lung sounds Cardio regular rate, regular rhythm and no murmurs GI normal to inspection, nondistended, normoactive bowel sounds and non-tender Palpation: soft Extremity normal to inspection General Extremety ED: Negative for edema or tenderness General Extremity: Negative for edema Neuro oriented x3, CN's II-XII intact bilaterally and no sensory deficits noted Sensorium / Orientation: alert Motor Exam: strength 5/5 throughout Psych mental status grossly normal Skin no rashes or lesions noted MDM MDM MDM Narrative Medical decision making narrative: Patient was given a DuoNeb here. EKG was obtained. On my interpretation it shows atrial fibrillation with a rate of 85 with PVCs. There are no acute ST or T wave changes noted. QRS interval and QTc intervals were normal. [place] was normal. CTA of the chest was obtained. There is no evidence of pulmonary embolism. There is an increase in the number of nodules of both legs suggestive of progressive metastatic deposits. There are bilateral effusions, worse on the right. This was interpreted by the radiologist and reviewed by myself. CBC shows a mild anemia with a hemoglobin of 9.2 and hematocrit 34.2. Platelets were normal. Comprehensive metabolic profile shows an elevated carbon dioxide of 36.0. Anion gap was normal. BUN was slightly elevated at 26. Lactate is normal. On reevaluation, patient's oxygen saturations were between 83 and 85% on 6 L nasal cannula. Patient was given a dose of prednisone here. Patient was given a repeat albuterol aerosol. Case was discussed with the hospitalist. He also suggested obtaining a BNP. This was ordered. He will admit the patient to his service. Patient understands and is agreeable with the plan. All questions were answered. Lab Data Attestation: I reviewed the patient's lab results. Labs: Laboratory Results - last 24 hr 06/28/21 06/28/21 06/28/21 12:05 12:05 12:05 WBC 6.6 RBC 3.98 L Hgb 9.2 L Hct 34.2 L MCV 85.9 MCH 23.1 L MCHC 26.9 L RDW Std Deviation 50.7 H RDW Coeff of [place] 16.5 H Plt Count 318 MPV 9.5 Immature Gran % (Auto) 0.600 Neut % (Auto) 78.0 H Lymph % (Auto) 10.7 L [place] % (Auto) 8.4 Eos % (Auto) 1.7 Baso % (Auto) 0.6 Absolute Neuts (auto) 5.2 Absolute Lymphs (auto) 0.71 L Nucleated RBC % 0 Sodium 136 Potassium 3.9 Chloride 97 L Carbon Dioxide 36.0 H Anion Gap 3 L BUN 26 H Creatinine 0.83 Estim Creat Clear Calc 78.53 Est GFR (MDRD) Af Amer 118 Est GFR (MDRD) Non-Af 98 BUN/Creatinine Ratio 31.4 H Glucose 220 H Lactic Acid Calcium 8.8 Total Bilirubin 0.70 AST 8 L ALT 11 L Alkaline Phosphatase 77 Troponin I High Sens 22 B-Natriuretic Peptide 817.4 H Total Protein 7.4 Albumin 3.0 L Globulin 4.4 H Albumin/Globulin Ratio 0.7 L 06/28/21 13:31 WBC RBC Hgb Hct MCV MCH MCHC RDW Std Deviation RDW Coeff of [place] Plt Count MPV Immature Gran % (Auto) Neut % (Auto) Lymph % (Auto) [place] % (Auto) Eos % (Auto) Baso % (Auto) Absolute Neuts (auto) Absolute Lymphs (auto) Nucleated RBC % Sodium Potassium Chloride Carbon Dioxide Anion Gap BUN Creatinine Estim Creat Clear Calc Est GFR (MDRD) Af Amer Est GFR (MDRD) Non-Af BUN/Creatinine Ratio Glucose Lactic Acid 1.0 Calcium Total Bilirubin AST ALT Alkaline Phosphatase Troponin I High Sens B-Natriuretic Peptide Total Protein Albumin Globulin Albumin/Globulin Ratio Radiography Diagnostic Testing: Clinical Impression(s) from Imaging Studies Chest CTA 06/28/21 13:03 IMPRESSION: Increased number of nodules in both lungs suggestive of progressive metastatic deposits. Bilateral pleural effusions right greater than left with bibasilar atelectasis worse on the right side. Electronically Signed: Venkatesh Messer MD at 14:30 EST , EKG Initial EKG: Attestation: I personally reviewed and interpreted this EKG as follows: Interpretation: No Acute Injury Pattern and Atrial Fibrillation (85 with frequent PVCs) Treatment and Re-Evaluation Vital Sign Attestation:: Vital signs were reviewed prior to admission. They are stable. Discharge Plan Dx/Rx/DC Orders Clinical Impression: Dyspnea on exertion, Hypoxia Disposition Disposition: Acute Care Hospital [facility] Discharge Date/Time: 06/28/21 17:08
[2021-06-28] MEDS: predniSONE 20 MG Tablet 60 MG PO (15:31)
--- NOTE | 2021-06-28 16:11 | HP.PCM.HOS_ITS ---
Documented by User: Shamika Gallego NP, PERFORMANCE IMPROVEMENT DIRECTOR-C 06/28/21 16:37 HPI - General General Date of Admission: 06/28/21 HPI Narrative EDIN LINK, is a 70 M who presents to the emergency room due to worsening shortness of breath and hypoxia. Patient states 3 weeks ago he was doing fairly well and was not using any oxygen. He states over the past 3 weeks he has had worsening shortness of breath and is now on 5 L at home. He saw cardiology about 1 week ago who increased his Lasix. He states for 1 day he felt improvement in breathing however he then continued to worsen. He denies cough, wheezing. Denies fever, chills. Denies chest pain. Reports increased lower extremity swelling. He is not aware of any weight gain. He has a past medical history of CAD with history of CABG/PTCA/CANDICE, hypertension, hyperlipidemia, former smoker, COPD, CVA, type 2 diabetes mellitus, hypothyroidism, paroxysmal atrial fibrillation, sarcoma. [facility] Medical History Atherosclerosis of coronary artery bypass graft without angina pectoris Atrial fibrillation Bilateral carotid artery stenosis Cancer COPD (chronic obstructive pulmonary disease) Coronary artery disease CVA (cerebral vascular accident) Diabetes Dyspnea on exertion Essential hypertension Fatigue Former smoker History of myocardial infarction Hyperlipidemia Hypertension Hypothyroidism Ischemic cardiomyopathy Lower back pain Myocardial infarct Neuropathy Obesity On home oxygen therapy Paroxysmal atrial fibrillation Type 2 diabetes mellitus Home Medications aspirin 81 mg tablet,delayed release 81 mg PO DAILY 11/09/17 [History Last Taken 06/28/21] glimepiride 4 mg tablet 4 mg PO DAILY 11/09/17 [History Last Taken 06/28/21] metformin 1,000 mg tablet 1,000 mg PO BID 11/09/17 [History Last Taken 06/28/21] nitroglycerin 0.4 mg sublingual tablet 0.4 mg SUBLINGUAL Q5M PRN #90 tab 09/23/20 [Rx Last Taken Unknown] flash glucose sensor #2 ea 03/08/21 [Rx Last Taken Unknown] fluticasone fur. 200 mcg-umeclid 62.5 mcg-vilant 25 mcg inhalat.powder 1 inh INHALATION DAILY ea 06/20/21 [History Last Taken 06/28/21] levothyroxine 50 mcg tablet 50 mcg PO DAILY tab 06/20/21 [History Last Taken 06/28/21] albuterol sulfate 2.5 mg INHALATION BID 06/28/21 [History Last Taken 06/28/21] amlodipine 10 mg PO QDAY 06/28/21 [History Last Taken 06/28/21] apixaban [Eliquis] 5 mg PO BID 06/28/21 [History Last Taken 06/28/21] atorvastatin 40 mg PO DAILY 06/28/21 [History Last Taken 06/27/21] carvedilol 12.5 mg PO BID 06/28/21 [History Last Taken 06/28/21] clonidine HCl 0.2 mg PO DAILY 06/28/21 [History Last Taken 06/28/21] dulaglutide [Trulicity] 0.75 mg SUBCUT TU 06/28/21 [History Last Taken 06/21/21] furosemide 40 mg PO DAILY 06/28/21 [History Last Taken 06/28/21] lisinopril 40 mg PO DAILY 06/28/21 [History Last Taken 06/28/21] Allergy/AdvReac Type Severity Reaction Status Date / Time No Known Allergies Allergy Verified 06/28/21 11:23 Family History Father CAD (coronary artery disease) Hx of CABG, Onset Age: 56 Mother Cancer Surgical History Aortocoronary bypass status (~07/12/00) History of coronary artery stent placement History of detached retina repair Leiomyosarcoma of lower extremity Postsurgical percutaneous transluminal coronary angioplasty (PTCA) status Presence of stent in coronary artery (~05/22/12) Social History Smoking Status: Former smoker how long ago did patient quit smokin years ago alcohol intake: never substance use type: does not use caffeine: Yes Type: coffee Number of servings: 2 and tea Number of servings: 6 ROS Constitutional Constitutional: Reports fatigue and weakness; Denies change in weight, chills or fever(s) Cardiovascular Cardiovascular: Reports edema; Denies chest pain, lightheadedness, palpitations or syncope Respiratory/Chest Respiratory/Chest: Reports shortness of breath at rest and shortness of breath with exertion; Denies cough, productive cough or wheezing Gastrointestinal Gastrointestinal: Denies abdominal pain, constipation, diarrhea, nausea or vomiting Genitourinary Genitourinary: Denies burning urination, difficulty urinating, dysuria, hematuria, urinary frequency, urinary incontinence or urinary urgency Musculoskeletal Musculoskeletal: Denies back pain, joint pain or muscle weakness Integumentary Integumentary: Reports wounds and other Details: right thigh wound ; Denies erythema, lesions or rash Neurologic Neurologic: Denies abnormal speech, confusion, dizziness, focal weakness, numbness, paresthesias, seizure-like activity or syncope Psychiatric Psychiatric: Denies anxiety or depression Hematologic/Lymphatic Hematologic/Lymphatic: Denies anemia, easy bleeding or easy bruising Allergic/Immunologic Allergic/Immunologic: Denies hives or asthma Vital Signs Vital Signs Vital Signs: 06/28/21 11:17 06/28/21 12:22 06/28/21 12:46 Temperature 97.7 F L 97.7 F L Temperature Source Temporal Temporal Pulse Rate 85 79 Respiratory Rate 18 22 H Respiratory Effort Respiratory Pattern Blood Pressure 156/79 H 151/82 H Blood Pressure Mean 104 105 Pulse Ox 90 87 91 Oxygen Delivery Method Nasal Cannula Nasal Cannula Nasal Cannula Oxygen Flow Rate (L/min) 2 2 4 06/28/21 13:16 06/28/21 13:35 06/28/21 14:13 Temperature 98.9 F Temperature Source Temporal Pulse Rate 90 98 Respiratory Rate 18 18 Respiratory Effort Short of Breath Respiratory Pattern Normal Tachypnea Blood Pressure 157/80 H Blood Pressure Mean 105 Pulse Ox 91 93 Oxygen Delivery Method Nasal Cannula Nasal Cannula Oxygen Flow Rate (L/min) 5 5 06/28/21 16:07 Temperature 98.9 F Temperature Source Temporal Pulse Rate 98 Respiratory Rate 18 Respiratory Effort Respiratory Pattern Blood Pressure 157/80 H Blood Pressure Mean 105 Pulse Ox 90 Oxygen Delivery Method Nasal Cannula Oxygen Flow Rate (L/min) 6 Weight Weight: 250 lb Body Mass Index (BMI) 39.1 Physical Exam Const alert, oriented x3 and no apparent distress Orientation / Consciousness: awake, oriented to person, oriented to place and oriented to time HEENT normocephalic and moist oral mucous membranes Eyes PERRL, EOMs intact bilaterally and conjunctivae normal Neck no lymphadenopathy Resp Auscultation: crackles and diminished lung sounds Cardio no murmurs Cardio Narrative: Atrial fibrillation Peripheral Pulses: pulses 2+ throughout GI normal to inspection, nondistended, normoactive bowel sounds, non-tender and non-distended Extremity normal to inspection General Extremity: edema bilateral lower extremity Details: moderate Skin no rashes or lesions noted Skin Narrative: Right thigh wound from prior sarcoma excision. Lesions: no lesions Rashes: no rashes Trauma: no lacerations or abrasions Neuro CN's II-XII intact bilaterally, no focal motor deficits, no sensory deficits noted and deep tendon reflexes 2+ bilaterally Psych mental status grossly normal and affect normal Results Lab / Micro Data Result Diagrams: 06/28/21 12:05 06/28/21 12:05 Labs: Laboratory Results - last 24 hr 06/28/21 12:05: WBC 6.6, RBC 3.98 L, Hgb 9.2 L, Hct 34.2 L, MCV 85.9, MCH 23.1 L , MCHC 26.9 L, RDW Std Deviation 50.7 H, RDW Coeff of Oliva 16.5 H, Plt Count 318, MPV 9.5, Immature Gran % (Auto) 0.600, Neut % (Auto) 78.0 H, Lymph % (Auto) 10.7 L, Lucas % (Auto) 8.4, Eos % (Auto) 1.7, Baso % (Auto) 0.6, Absolute Neuts (auto) 5.2, Absolute Lymphs (auto) 0.71 L, Nucleated RBC % 0 06/28/21 12:05: Sodium 136, Potassium 3.9, Chloride 97 L, Carbon Dioxide 36.0 H, Anion Gap 3 L, BUN 26 H, Creatinine 0.83, Estim Creat Clear Calc 78.53, Est GFR (MDRD) Af Amer 118, Est GFR (MDRD) Non-Af 98, BUN/Creatinine Ratio 31.4 H, Glucose 220 H, Calcium 8.8, Total Bilirubin 0.70, AST 8 L, ALT 11 L, Alkaline Phosphatase 77, Troponin I High Sens 22, Total Protein 7.4, Albumin 3.0 L, Globulin 4.4 H, Albumin/Globulin Ratio 0.7 L 06/28/21 13:31: Lactic Acid 1.0 Micro: Microbiology 06/28/21 13:31 Nasal Secretion SARS-CoV-2 Antigen (Rapid) - Final Radiology Impression Chest CTA 06/28/21 13:03 IMPRESSION: Increased number of nodules in both lungs suggestive of progressive metastatic deposits. Bilateral pleural effusions right greater than left with bibasilar atelectasis worse on the right side. Electronically Signed: Venkatesh Messer MD at 14:30 EST , Assessment & Plan Assessment/Plan (1) Congestive heart failure: PLAN: 1. Acute on chronic hypoxic respiratory failure secondary to acute on chronic heart failure with reduced ejection fraction/ischemic cardiomyopathy- BNP 817. CTA of chest with increased number of nodules in both lungs suggestive of progressive metastatic deposits. Bilateral pleural effusions right greater than left with bibasilar atelectasis. IV Lasix. Strict I&O. Daily weight. Echo November 2020 demonstrated an EF of 45%. Will repeat echo. Continue s upplement oxygen to maintain O2 at above 90%. Walking pulse ox prior to discharge. 2. Normocytic anemia-recently found as outpatient to have hemoglobin 7-8 which is significantly below prior baseline. Appears stable at 9.2 on admission. Check iron studies/stool for occult blood. Trend CBC. 3. Leiomyosarcoma-status post right thigh tumor excision. States he has had repeat revisions. Continues to have right thigh wound. Wound RN consult. Continue follow-up with surgical oncology/oncology including follow-up regarding lung nodules. Patient reports he had a PET scan in March 2021 which did not show any other affected area besides right thigh. 4. CAD with history of CABG/PTCA/CANDICE-follows with cardiology. Continue medical management including aspirin, statin, carvedilol, lisinopril, Eliquis. 5. Hypertension-stable, continue amlodipine, carvedilol, clonidine, lisinopril. 6. Hyperlipidemia-continue statin. 7. Chronic COPD-do not suspect acute exacerbation. No wheezing on exam. DuoNeb and albuterol aerosols. 8. CVA-continue aspirin, statin, Eliquis. 9. Type 2 diabetes mellitus-hold oral regimen. Accu-Cheks with sliding scale insulin. 10. Hypothyroidism-continue Synthroid regimen. 11. Paroxysmal atrial fibrillation-on Eliquis, carvedilol. 12. Former tobacco use- encouraged continued cessation. DVT prophylaxis- Eliquis This patient was seen by LOCO Rowland under the supervision of Dr. Dai. Time spent examining patient, reviewing data and subsequent management of care: 18 Minutes Documented by User: Dr. 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 Patient has history of COPD but he required home oxygen since October/November after surgery. He did not require oxygen until 3 weeks ago when he is to progressively increase his oxygen to 5 L from his baseline requirement of 2 L. Patient denies any chest pain. He has increased leg swelling and he thinks he has gained weight although he does not measure body weight. He has mild rhinorrhea but denies any significant cough or sputum production. Denies wheezing. Chest x-ray individually reviewed chest bilateral venous congestion with hilar involvement. Chest CTA further done shows bilateral pleural effusion right more than left with basilar atelectasis worse on the right side. Increased number of nodules of both lungs which raised concern for metastatic deposit. No PE. Twelve-lead EKG independently reviewed which shows A. fib at of [address]-T changes. Labs reviewed and mentioned in assessment and plan. [facility] Medical History Atherosclerosis of coronary artery bypass graft without angina pectoris Atrial fibrillation Bilateral carotid artery stenosis Cancer COPD (chronic obstructive pulmonary disease) Coronary artery disease CVA (cerebral vascular accident) Diabetes Dyspnea on exertion Essential hypertension Fatigue Former smoker History of myocardial infarction Hyperlipidemia Hypertension Hypothyroidism Ischemic cardiomyopathy Lower back pain Myocardial infarct Neuropathy Obesity On home oxygen therapy Paroxysmal atrial fibrillation Type 2 diabetes mellitus Home Medications aspirin 81 mg tablet,delayed release 81 mg PO DAILY 11/09/17 [History Last Taken 06/28/21] glimepiride 4 mg tablet 4 mg PO DAILY 11/09/17 [History Last Taken 06/28/21] metformin 1,000 mg tablet 1,000 mg PO BID 11/09/17 [History Last Taken 06/28/21] nitroglycerin 0.4 mg sublingual tablet 0.4 mg SUBLINGUAL Q5M PRN #90 tab 09/23/20 [Rx Last Taken Unknown] flash glucose sensor #2 ea 03/08/21 [Rx Last Taken Unknown] fluticasone fur. 200 mcg-umeclid 62.5 mcg-vilant 25 mcg inhalat.powder 1 inh INHALATION DAILY ea 06/20/21 [History Last Taken 06/28/21] levothyroxine 50 mcg tablet 50 mcg PO DAILY tab 06/20/21 [History Last Taken 06/28/21] albuterol sulfate 2.5 mg INHALATION BID 06/28/21 [History Last Taken 06/28/21] amlodipine 10 mg PO QDAY 06/28/21 [History Last Taken 06/28/21] apixaban [Eliquis] 5 mg PO BID 06/28/21 [History Last Taken 06/28/21] atorvastatin 40 mg PO DAILY 06/28/21 [History Last Taken 06/27/21] carvedilol 12.5 mg PO BID 06/28/21 [History Last Taken 06/28/21] clonidine HCl 0.2 mg PO DAILY 06/28/21 [History Last Taken 06/28/21] dulaglutide [Trulicity] 0.75 mg SUBCUT TU 06/28/21 [History Last Taken 06/21/21] furosemide 40 mg PO DAILY 06/28/21 [History Last Taken 06/28/21] lisinopril 40 mg PO DAILY 06/28/21 [History Last Taken 06/28/21] Allergy/AdvReac Type Severity Reaction Status Date / Time No Known Allergies Allergy Verified 06/28/21 11:23 Family History Father CAD (coronary artery disease) Hx of CABG, Onset Age: 56 Mother Cancer Surgical History Aortocoronary bypass status (~07/12/00) History of coronary artery stent placement History of detached retina repair Leiomyosarcoma of lower extremity Postsurgical percutaneous transluminal coronary angioplasty (PTCA) status Presence of stent in coronary artery (~05/22/12) Social History Smoking Status: Former smoker how long ago did patient quit smokin years ago alcohol intake: never substance use type: does not use caffeine: Yes Type: coffee Number of servings: 2 and tea Number of servings: 6 ROS ROS Narrative Bilateral leg swelling, pitting edema. Right thigh wound chronic healing follows [facility] ([facility]3]. 14 ROS reviewed and negative except as mentioned in HPI. Physical Exam Narrative General: Alert, Oriented x3, Cooperative HEENT: Atraumatic, PERRLA, EOMI, Normocephalic Oral: No Gingival or Mucosal Lesions/ Ulcerations Neck: Supple, No JVD, Negative Carotid Bruits Lungs: Air entry diminished in bilateral lung bases. Bilateral pleural effusion, right more than left. Mild bilateral crepitations Cardiovascular: Regular rate and rhythm status post CABG, Normal S1, Normal S2, LLSB systolic murmur Abdomen: Bowel Sounds Present, Soft, Non Tender, Non-Distended : No renal angle tenderness. No suprapubic tenderness. Extremities: Bilateral pitting, leg 2+ edema, Capillary Refill Less than 3 Seconds Skin: Chronic right thigh wound after cancer resection and skin graft. Mild packing removed stent with pus. Musculoskeletal: No Tenderness to Palpation of Joints or Extremities. Right lower extremity weak chronic due to surgery at the thigh. Neurological: Cranial nerves II-XII grossly intact, DTR 2+/4 and Symmetrical, Neuro grossly intact Psych/Mental Status: Normal Affect, Appropriate. Results Lab / Micro Data Result Diagrams: 06/28/21 12:05 06/28/21 12:05 Assessment & Plan Assessment/Plan (1) Acute and chronic respiratory failure with hypoxia: PLAN: This patient was seen in conjunction with PERFORMANCE IMPROVEMENT DIRECTORShamika. I have inde pendently interviewed and examined the patient and reviewed pertinent history, examination findings, laboratory and plan of management. I have reviewed the note and agree with the documented findings with the few additional points. In brief, patient is 70-year-old gentleman admitted for progressive worsening of shortness of breath, increased hypoxia, dyspnea on minimal exertion and bilateral leg swelling and weight gain, CT chest showing 1. bilateral pleural effusion consistent with acute on chronic HFrEF. Patient last echo shows EF 45% and repeat echo ordered. Take an additional 40 mg dose at 5 PM for increased leg swelling or weight gain 5 pounds in 1 week. Lasix 40 mg IV twice daily ordered. Heart failure core measures including intake and output, fluid restriction less than 1500 mL, daily weight monitoring, kidney and electrolytes monitoring 2. Leiomyosarcoma status post tumor resection and skin graft: Patient follows [facility] ([facility]3] surgeon. Continue follow surgeon rest as mentioned above 3. Coronary artery status post CABG/PCI/stent: Continue patient home medication aspirin statin carvedilol lisinopril and Eliquis. 4. Chronic normocytic normochromic anemia: Denies any recent acute bleeding from the wound, GI bleed or hematuria. His prior hemoglobin was between 7 to 8 g in number April 2021. Hemoglobin 9.2 on admission. Stool for occult blood and anemia work-up ordered. Continue iron supplement. 5. COPD: Does not seem to be in acute exacerbation. DuoNeb as needed. Its use patient is a chronic retainer with CO2 36 in BMP 6. Diabetes mellitus type 2: Accu-Chek insulin coverage Humalog sliding scale Other comorbidities include hypertension, dyslipidemia, CVA and hypothyroidism Total time of the visit includes total time spent in counseling or coordination of care, (more than 50% of the total time, spent in obtaining medical inf ormation from nurses and other ancillary care providers,explaining to the patient about labs, imaging, diagnosis and management), discussion with brand sales consultant, review of labs and imaging is 30 minutes; I spent 40 minutes, more than half time, or 20 minutes is spent by PERFORMANCE IMPROVEMENT DIRECTORShamika Living will/advanced directive/end of life care: Patient doesn't have living will or advanced directive. His is next to kin. Does not have designated power of county attorney for health. After discussion of benefits/risks procedures involved with full code, DNR CC arrest and DNR CC, the patient and his opted for full code. Patient does want artificial life support including intubation, tube feed, ventilator and/chest compression, central venous catheter, vasopressor and DC shock if needed Total time spent in [id number] encounter in discussion of advanced directive 16 minutes. I have discussed my assessment with PERFORMANCE IMPROVEMENT DIRECTORShamika and orders have been reviewed. Charges/Coding Visit Charges Inpatient E&M: 67757 Init Hosp L3 Procedures Hospitalists Procedures: 01335 Advncd Care Plan 30 Min
[2021-06-28] MEDS: Albuterol 2.5 MG/3 ML VIAL.NEB. INHALATION (16:12)
[2021-06-28 16:19] LABS: BNP,B-Type NATRIURETIC PEPTIDE 817.4 pg/mL (0-100)
--- NOTE | 2021-06-28 17:29 | ECHOCS_ITS ---
Reason For Study: CHF Procedure This was a 2D Doppler, Color Flow transthoracic echocardiogram. The study was technically difficult. Contrast injection was performed. Exam performed portable in patient room. Left Ventricle Mildly dilated left ventricle. Mild segmental systolic dysfunction (see wall motion). The estimated ejection fraction is 40 %. Unable to assess diastolic dysfunction. Infero-Basal: Akinetic. Basal inferoseptal: Hypokinetic. Mid-Inferior: Hypokinetic. Mid-inferoseptal : Hypokinetic. Mid- anteroseptal : Hypokinetic. Right Ventricle Normal RV size. Normal systolic function. Atria The left atrium is moderately enlarged. The right atrium is moderately enlarged. No doppler evidence for ASD. Mitral Valve There is moderate mitral annular calcification. Extension of the mitral annular calcification on the base of the posterior mitral valve leaflet. Mild-Moderate (1-2+) mitral valve insufficiency. Tricuspid Valve Normal tricuspid valve. Mild to moderate (1-2+) tricuspid valve insufficiency. Right ventricular systolic pressure estimated to be 36 mmHg. Aortic Valve Trisinus/trileaflet aortic valve. Mild focal aortic valve calcification. Pulmonic Valve The pulmonic valve is not well visualized. Great Vessels Normal sized aortic root. Pericardium/Pleural No pericardial effusion. Medication Diluted definity 3ml given slow IV push to enhance endocardial definition. MMode/2D Measurements & Calculations LVIDd: 5.7 cm IVSd: 1.2 cm Ao root diam: 3.6 cm LVIDs: 5.0 cm LVPWd: 1.1 cm RVDd: 5.0 cm FS: 11.5 % LAV(MOD-bp): 90.3 ml LVAd ap4: 41.1 cm2 SV(MOD-sp4): 62.7 ml LAV(MOD-bp) Indexed: 38.8 ml/m2 LVLd ap4: 9.2 cm LAV(MOD-sp2): 86.8 ml EDV(MOD-sp4): 157.2 ml LAV(MOD-sp4): 86.4 ml EDV(sp4-el): 155.0 ml LVAs ap4: 30.2 cm2 LVLs ap4: 8.2 cm ESV(MOD-sp4): 94.5 ml ESV(sp4-el): 94.3 ml EF(MOD-sp4): 39.9 % EF(sp4-el): 39.1 % SV(sp4-el): 60.7 ml LA A4 area: 28.0 cm2 LA dimension(2D): 4.8 cm RA A4 area: 30.9 cm2 Doppler Measurements & Calculations MV E max tang: 138.7 cm/sec Ao V2 max: 119.6 cm/sec LV V1 max: 86.9 cm/sec Ao max P.8 mmHg LV V1 max P.0 mmHg Ao V2 mean: 80.1 cm/sec Ao mean P.9 mmHg Ao V2 VTI: 21.8 cm PA V2 max: 80.0 cm/sec TR max tang: 288.5 cm/sec TR max P.3 mmHg ECHO/Echo Complete W/ Contrast Interpretation Summary The study was technically difficult. Contrast injection was performed. Mildly dilated left ventricle. Mild segmental systolic dysfunction (see wall motion). The estimated ejection fraction is 40 %. The left atrium is moderately enlarged. The right atrium is moderately enlarged. There is moderate mitral annular calcification. Extension of the mitral annular calcification on the base of the posterior mitr al valve leaflet. Mild-Moderate (1-2+) mitral valve insufficiency. Mild to moderate (1-2+) tricuspid valve insufficiency. Mild focal aortic valve calcification. Right ventricular systolic pressure estimated to be 36 mmHg. Unable to assess diastolic dysfunction. Ordering Physician: Shamika Gallego Referring Physician: Dino Ward Performed By: Jocelyn Hemphill, HARJEETCS, RVT
[2021-06-28] MEDS: Furosemide 40 MG/4 ML Vial IV (18:23)
[2021-06-28 19:13] LABS: Ferritin 44 ng/mL (26-388); Iron 25 ug/dL (65-175); Iron Binding Capacity,Total 462 ug/dL (250-450); Magnesium 1.6 mg/dL (1.6-2.6); PERCENT IRON SATURATION 5.4 % (15.0-55.0); Troponin-I HS 24 pg/mL (3.0-78.0)
[2021-06-28 19:55] LABS: Vitamin B12 490 pg/mL (211-911)
[2021-06-28] MEDS: APIXABAN 5 MG TABLET PO (23:05)
[2021-06-28] MEDS: Atorvastatin Calcium 40 MG Tablet PO (23:05)
[2021-06-28] MEDS: Carvedilol 12.5 MG Tablet PO (23:05)
[2021-06-28] MEDS: Insulin Lispro 100 UNIT/ML INSULN.PEN SC (23:14)
[2021-06-29] VITALS (12 sets, daily range): BP systolic 118–159; BP diastolic 51–96; PULSE 60–100; RESP 16–20; TEMP 36.1–37; O2SAT 94–100
[2021-06-29 00:46] LABS: Bedside Glucose 292 mg/dL (70-110)
[2021-06-29 05:18] LABS: Absolute Neutrophil Count 3.3 X10^3/uL (2.0-7.7); Basophil# 0.02 X10^3/uL; Basophil% 0.5 % (0-1); Hematocrit 31.2 % (40-54); Hemoglobin 8.7 g/dL (13.0-16.5); Mean Corp Hgb Conc 27.9 g/dL (32-36); Mean Corpuscular Hgb 23.6 pg (27.0-32.0); Mean Corpuscular Volume 84.6 fL (80-94); Mean Platelet Vol. 9.4 fl (6.2-12.0); Monocyte# 0.31 X10^3/uL; Monocyte% 7.4 % (0-10); NRBC Flagged by Analyzer 0 % (0-5); Neutrophil # 3.33 X10^3/uL (2.7-7.7); Neutrophil % 79.6 % (47-70); POSITIVE DIFFERENTIAL YES; Platelet Count 319 K/mm3 (150-450); RBC Distribution Width CV 16.3 % (11.6-14.6); RBC Distribution Width SD 49.5 fl (35.1-43.9); Red Blood Count 3.69 M/mm3 (4.6-6.2); White Blood Count 4.2 K/mm3 (4.4-11.0)
[2021-06-29 05:29] LABS: Differential Indicated SCAN CRITERIA MET
[2021-06-29 05:46] LABS: Magnesium 1.9 mg/dL (1.6-2.6)
[2021-06-29 05:55] LABS: Differential Comment SCANNED
[2021-06-29 06:02] LABS: Anion Gap 3 (5-15); BUN 22 mg/dL (7-18); BUN/Creat Ratio 33.3 RATIO (10-20); Calcium,Total 8.9 mg/dL (8.5-10.1); Chloride 97 mmol/L (98-107); Creatinine, Serum 0.66 mg/dL (0.70-1.30); EST Glomerular Filtration Rate 127 mL/min (>60); Est Glom Filt Rate - Afr Amer 154 mL/min (>60); Estimated Creatinine Clearance 65.18 ml/min; Glucose 210 mg/dL (74-106); Potassium 4.2 mmol/L (3.5-5.1); Sodium Level 137 mmol/L (136-145)
[2021-06-29] MEDS: Insulin Lispro 100 UNIT/ML INSULN.PEN SC ×4 (06:43→21:20)
[2021-06-29] MEDS: Levothyroxine 50 MCG Tablet PO (06:43)
[2021-06-29 06:51] LABS: Bedside Glucose 214 mg/dL (70-110)
[2021-06-29] MEDS: Lisinopril 40 MG Tablet PO (08:17)
[2021-06-29] MEDS: Carvedilol 12.5 MG Tablet PO ×2 (08:17→21:14)
[2021-06-29] MEDS: Furosemide 40 MG/4 ML Vial IV ×2 (08:18→18:08)
[2021-06-29] MEDS: APIXABAN 5 MG TABLET PO (08:18)
[2021-06-29] MEDS: Aspirin E.C. 81 MG Tablet PO (08:18)
[2021-06-29] MEDS: cloNIDine HCl 0.2 MG Tablet PO (08:18)
[2021-06-29] MEDS: amLODIPine 10 MG Tablet PO (08:18)
[2021-06-29] MEDS: 0.9% Saline Lock 10 ML Syringe IV ×2 (08:19→18:08)
--- NOTE | 2021-06-29 10:10 | WOUNDNOTE ---
wound photo: right thigh
--- NOTE | 2021-06-29 10:10 | WOUNDNOTE ---
wound photo:right swain
--- NOTE | 2021-06-29 10:11 | WOUNDNOTE ---
wound photo: right posterior lower leg
--- NOTE | 2021-06-29 10:11 | WOUNDNOTE ---
wound photo: left swain
--- NOTE | 2021-06-29 10:25 | US_ITS ---
PROCEDURE: ULTRASOUND GUIDED THORACENTESIS. DATE: 06/29/2021. INDICATION: Male, 70 years old. Right pleural effusion. PHYSICIAN: Venkatesh Messer M.D. PROCEDURE: The risks, benefits, and alternatives to the procedure were explained to the shouldn''t. The specific risks of bleeding, infection, and pneumothorax requiring chest tube insertion were discussed and accepted. Written informed consent was obtained. Ultrasonographic evaluation of the right lower pleural space was carried out. An adequate pocket was identified. The patient was placed in the sitting, upright position. The overlying skin was prepped and draped in sterile fashion. 1% lidocaine was administered subcutaneously for local anesthesia. Under ultrasound guidance, a 5 Malay thoracentesis needle/catheter system was advanced into the right posterior lower pleural fluid collection. Approximately 1320 mL of cristian-colored fluid was drained. The catheter was removed, and a sterile dressing was applied. A specimen was collected and sent to the laboratory for analysis, as requested by the referring clinician. The patient tolerated the procedure well. A chest x-ray was ordered. US/Thoracentesis W US IMPRESSION: Ultrasound-guided right thoracentesis. Electronically Signed: Venkatesh Messer MD at 14:11 [facility] ,
--- NOTE | 2021-06-29 10:44 | PN.HOSP_ITS ---
Documented by User: Shamika Gallego NP, LEATHER GRADER-C 06/29/21 11:02 Subjective Subjective Patient seen and examined. Reports subjective improvement in breathing however remains on high flow oxygen. Denies cough, fever, chills. Patient requesting oncology care in [place], will consult. Objective Data Objective Data Vital Signs: Vital Signs Temp Pulse Resp BP Pulse Ox 97.5 F L 73 20 H 152/80 H 99 06/29/21 08:12 06/29/21 08:12 06/29/21 08:12 06/29/21 08:12 06/29/21 08:12 Oxygen Flow Rate (L/min) 8 Oxygen Delivery Method High Flow Weight: 278 lb 10.629 oz Body Mass Index (BMI) 43.6 Intake & Output: Intake and Output for Last 24 Hours 06/27/21 06/28/21 06/29/21 23:59 23:59 23:59 Intake Total 104 / 104 Output Total 250 / 250 Balance -146 / -146 Lab / Micro Data Result Diagrams: 06/29/21 04:30 06/29/21 04:30 Labs: Laboratory Results - last 24 hr 06/28/21 12:05: WBC 6.6, RBC 3.98 L, Hgb 9.2 L, Hct 34.2 L, MCV 85.9, MCH 23.1 L , MCHC 26.9 L, RDW Std Deviation 50.7 H, RDW Coeff of Oliva 16.5 H, Plt Count 318, MPV 9.5, Immature Gran % (Auto) 0.600, Neut % (Auto) 78.0 H, Lymph % (Auto) 10.7 L, Buchanan % (Auto) 8.4, Eos % (Auto) 1.7, Baso % (Auto) 0.6, Absolute Neuts (auto) 5.2, Absolute Lymphs (auto) 0.71 L, Nucleated RBC % 0 06/28/21 12:05: Sodium 136, Potassium 3.9, Chloride 97 L, Carbon Dioxide 36.0 H, Anion Gap 3 L, BUN 26 H, Creatinine 0.83, Estim Creat Clear Calc 78.53, Est GFR (MDRD) Af Amer 118, Est GFR (MDRD) Non-Af 98, BUN/Creatinine Ratio 31.4 H, Glucose 220 H, Calcium 8.8, Total Bilirubin 0.70, AST 8 L, ALT 11 L, Alkaline Phosphatase 77, Troponin I High Sens 22, Total Protein 7.4, Albumin 3.0 L, Globulin 4.4 H, Albumin/Globulin Ratio 0.7 L 06/28/21 12:05: B-Natriuretic Peptide 817.4 H 06/28/21 13:31: Lactic Acid 1.0 06/28/21 18:26: Vitamin B12 490 06/28/21 18:26: Magnesium 1.6, Iron 25 L, TIBC 462 H, Iron Saturation 5.4 L, Ferritin 44, Troponin I High Sens 24, Folate 9.10 06/28/21 23:00: POC Glucose 292 H 06/29/21 04:30: WBC 4.2 L, RBC 3.69 L, Hgb 8.7 L, Hct 31.2 L, MCV 84.6, MCH 23.6 L, MCHC 27.9 L, RDW Std Deviation 49.5 H, RDW Coeff of Oliva 16.3 H, Plt Count 319, MPV 9.4, Immature Gran % (Auto) 0.500, Neut % (Auto) 79.6 H, Lymph % (Auto) 12.0 L, Buchanan % (Auto) 7.4, Eos % (Auto) 0.0, Baso % (Auto) 0.5, Absolute Neuts (auto) 3.3, Absolute Lymphs (auto) 0.50 L, Nucleated RBC % 0, Differential Comment SCANNED, Diff Path Review September06/29/21 04:30: Sodium 137, Potassium 4.2, Chloride 97 L, Carbon Dioxide 37.0 H, Anion Gap 3 L, BUN 22 H, Creatinine 0.66 L, Estim Creat Clear Calc 65.18, Est GFR (MDRD) Af Amer 154, Est GFR (MDRD) Non-Af 127, BUN/Creatinine Ratio 33.3 H, Glucose 210 H, Calcium 8.9, TSH 0.90 06/29/21 04:30: Magnesium 1.9 06/29/21 06:41: POC Glucose 214 H Micro: Microbiology 06/28/21 13:31 Nasal Secretion SARS-CoV-2 Antigen (Rapid) - Final Radiography Diagnostic Testing: Radiology Impression Chest CTA 06/28/21 13:03 IMPRESSION: Increased number of nodules in both lungs suggestive of progressive metastatic deposits. Bilateral pleural effusions right greater than left with bibasilar atelectasis worse on the right side. Electronically Signed: Venkatesh Messer MD at 14:30 EST , Physical Exam Const alert, oriented x3 and no apparent distress Orientation / Consciousness: awake, oriented to person, oriented to place and oriented to time HEENT normocephalic and moist oral mucous membranes Eyes PERRL, EOMs intact bilaterally and conjunctivae normal Neck no lymphadenopathy Resp Auscultation: crackles bilateral base and diminished lung sounds Cardio regular rate, regular rhythm and no murmurs Peripheral Pulses: pulses 2+ throughout GI normal to inspection, nondistended, normoactive bowel sounds, non-tender and non-distended Extremity normal to inspection General Extremity: edema bilateral lower extremity Details: moderate Skin no rashes or lesions noted Skin Narrative: Right thigh wound from prior sarcoma excision with revision. Bilateral lower extremity venous stasis skin changes with right posterior leg superficial wounds. Lesions: no lesions Rashes: no rashes Trauma: no lacerations or abrasions Neuro CN's II-XII intact bilaterally, no focal motor deficits, no sensory deficits noted and deep tendon reflexes 2+ bilaterally Psych mental status grossly normal and affect normal Assessment & Plan Assessment/Plan (1) Acute and chronic respiratory failure with hypoxia: PLAN: 1. Acute on chronic hypoxic respiratory failure secondary to acute on chronic heart failure with reduced ejection fraction/ischemic cardiomyopathy and bilateral pleural effusion-BNP 817. CTA of chest with increased number of nodules in both lungs suggestive of progressive metastatic deposits. Bilateral pleural effusions right greater than left with bibasilar atelectasis. IV Lasix. Strict I&O. Daily weight. Fluid restriction. Echo November 2020 demonstrated an EF of 45%. Repeat echo pending. Continue supplement oxygen to maintain O2 at above 90%. Walking pulse ox prior to discharge. Right-sided thoracentesis ordered with labs. Karen white. 2. Normocytic anemia-recently found as outpatient to have hemoglobin 7-8 which is significantly below prior baseline. Appears stable at 9.2 on admission. Stool ordered for occult blood. Iron studies consistent with iron deficiency. Add iron supplement. IV iron daily x3 days then transition to oral iron. 3. Leiomyosarcoma-status post right thigh tumor excision. States he has had repeat revisions. Continues to have right thigh wound. Wound RN consult. Patient states he has followed with surgical oncology however has not yet been referred to oncology/radiation and would like to establish with [place] onc[facility]. Thoracentesis with fluid studies ordered as noted above to assess for malignant pleural effusion. [facility] oncology consult placed. 4. CAD with history of CABG/PTCA/CANDICE-follows with cardiology. Continue medical management including aspirin, statin, carvedilol, lisinopril, Eliquis. 5. Hypertension-stable, continue amlodipine, carvedilol, clonidine, lisinopril. 6. Hyperlipidemia-continue statin. 7. Chronic COPD-do not suspect acute exacerbation. No wheezing on exam. DuoNeb and albuterol aerosols. 8. CVA-continue aspirin, statin, Eliquis. 9. Type 2 diabetes mellitus-hold oral regimen. Accu-Cheks with sliding scale insulin. Add bedtime Lantus for further glucose control given oral meds on hold. 10. Hypothyroidism-continue Synthroid regimen. 11. Paroxysmal atrial fibrillation-on Eliquis, carvedilol. Eliquis held for thoracentesis. 12. Former tobacco use- encouraged continued cessation. DVT prophylaxis- Hold Eliquis This patient was seen by Shamika Gallego NP-C under the supervision of Dr. Montelongo. Documented by User: Dr. Elise Montelongo DO 06/29/21 15:10 Subjective Subjective This was seen in conjunction with Shamika Gallego NP. The following is representation my independent history and physical examination. Please see below for addendum the above. The patientIs somewhat difficult to get a history from although his is at bedside and helps straighten things out. It sounds like he was diagnosed with a sarcoma in the middle of this past summer and has been undergoing treatment at [facility] for this. Dr. Collazo had done his initial surgery and it sounds like Dr. Sims had been his plastic surgeon and is currently continuing to treat him at this time. They thought he had a PET scan done in March however it appears it was done in December. There were no pulmonary nodules noted at that time that were highlighted. I did discuss with the patient the current findings on his CT a of his chest and he is agreeable to undergo thoracentesis at this time.They also would prefer to see oncology down here so we will place a consult to [facility] oncology per their preference Objective Data Lab / Micro Data Result Diagrams: 06/29/21 04:30 06/29/21 04:30 Physical Exam Const alert, oriented x3 and no apparent distress Constitutional Narrative: Morbid obese white male sitting up in bed eating breakfast, appears comfortable, nontoxic, at bedside Orientation / Consciousness: awake, oriented to person, oriented to place and or iented to time Exam Limitations: no limitations Nutritional Appearance: morbidly obese HEENT normocephalic, head/scalp atraumatic and moist oral mucous membranes HEENT Narrative: Mild potty is 3-4, dentition is fair, no thrush Head and Scalp: normocephalic Eyes PERRL, EOMs intact bilaterally and conjunctivae normal Eyes Narrative: No scleral icterus Neck no lymphadenopathy, supple and no JVD Neck Narrative: Trachea midline, neck is short and thick, no thyroid enlargement noted Resp normal respiratory effort, no retractions and no use of accessory muscles Resp Narrative: Markedly diminished bases bilaterally With few end expiratory wheezes Auscultation: crackles bilateral base, wheezes and diminished lung sounds; Negative for rales or rhonchi Cardio regular rate, S1 normal heart sound, S2 normal heart sound, no murmurs, no rub, no gallops, no clicks and no JVD Cardio Narrative: Atrial fibrillation Peripheral Pulses: pulses 2+ throughout GI normal to inspection, nondistended, normoactive bowel sounds, soft to palpation, non-tender and non-distended GI Narrative: abdomen Extremity normal to inspection Extremity Narrative: Flap from previous right lower extremity surgery noted, wound is currently covered with a clean and dry dressing General Extremity: edema bilateral lower extremity Details: moderate Peripheral Pulses: Yes pulses 2+ throughout Skin no rashes or lesions noted Skin Narrative: Bilateral lower extremity venous stasis skin changes with right posterior leg superficial wounds. Lesions: no lesions Rashes: no rashes Trauma: no lacerations or abrasions Neuro oriented x3, CN's II-XII intact bilaterally, moves all extremities, no focal motor deficits, no sensory deficits noted and deep tendon reflexes 2+ bilaterally Sensorium / Orientation: awake and alert Speech: speech normal Psych mental status grossly normal and affect normal Assessment & Plan Assessment/Plan (1) Acute and chronic respiratory failure with hypoxia: (2) Pleural effusion: (3) Pulmonary nodules: (4) Leiomyosarcoma of lower extremity: PLAN: Assessment: Acute on chronic hypoxic respiratory failure Large right pleural effusion Multiple pulmonary nodules suspicious for metastatic disease Chronic diastolic heart failure Chronic normocytic anemia Iron deficiency CAD status post CABG/PCI Hypertension Hyperlipidemia COPD Stroke DM-2 Hypothyroidism PAF Plan: -Continue chronic medications as noted above -At this ordered as noted above -Highly suspicious for malignant effusion -Hold Eliquis -Consult IR for right thoracentesis with fluid studies -Consult oncology for recommendations -Continue diuresis -Wean oxygen as able -Repeat echocardiogram is pending -Iron studies do so iron deficiency and IV iron has been ordered -We will follow up with outpatient oral iron Charges/Coding Visit Charges Inpatient E&M: 13010 Subs Hosp L3
[2021-06-29 11:36] LABS: Bedside Glucose 232 mg/dL (70-110)
--- NOTE | 2021-06-29 11:50 | CASEMGMT ---
MONTY LEGGETT Assessment: RN BETSEY to room to meet with patient for initial transition planning/care coordination assessment. MONTY LEGGETT introduced self and role at [facility]. Patient voices understanding and consents to assessment at this time. Patient's Rolanda present at bedside and involved with transition planning. Patient is alert and oriented and answers all questions appropriately. Care providers, pharmacy, and demographics verified/updated at this time. Admitting Dx: Dyspnea, hypoxia, CHF PCP: Dino Ward Specialists: Gary- cardiology, Rosemarie- pulmonology, Dr. Ascencion Sism- plastic surgeon ([facility]) Preferred [facility]acy: [facility] Insurance: [employer] Prescription Benefit: yes Living Will/HPOA: Patient denies having a living will or HPOA and declines speaking with SW regarding these documents. LNOK: Rolanda Gonzalez Living Arrangements: Patient lives with and grandson in single story house with 3 steps to enter with no handrail present. Patient requests information/resources for obtaining ramp for home entry. Patient states independent with ADLs prior to hospitalization. Patient uses a front-wheeled walker for mobility. Smoking/ETOH: Former smoker (quit 40 years ago), denies ETOH use Transportation: Patient's drives patient and patient denies transportation concerns. DME/HHC/SNF: Patient has a FWW, cane, crutches, shower chair, hand-held shower, grab bars, raised toilet seat and glucometer at home. Patient has home oxygen concentrator supplied through [facility] but does not have portable tanks. Patient is current with [facility] for SN and per , they visit every other day. Previous wound vac to the right thigh and home IV antibiotics following hospitalization at [facility] in February 2021. Patient denies previous SNF stays. Call placed to Pastora at [facility] to confirm oxygen order: 4 LPM with exertion. Pastora states that if portable oxygen tanks were to be needed at time of discharge, new script would need to be faxed. 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 Patient and have no concerns with going home with resumption of HHC at time of discharge and requests PT/OT be added. CM to follow for any discharge planning/needs. Patient voices no concerns/needs at this time. Advised patient and to ask for CM if any questions/concerns/needs arise. Voices understanding. Plan: home with resumption of HHC- patient requests PT/OT be added
[2021-06-29 11:54] LABS: ALB/GLOB Ratio 0.7 RATIO (0.9-2.4); Globulin 4.1 g/dL (2.2-4.2); LDH 146 U/L (87-241)
--- NOTE | 2021-06-29 12:04 | CASEMGMT ---
Clinicals faxed to [facility] and [facility] order for SN and add PT/OT. SStmo MILLAN CM
--- NOTE | 2021-06-29 13:00 | FLU_PTH ---
PATIENT: EDIN LINK LOC: [facility] U#:[id number] AGE/SX: 70/M ROOM: [facility] RE06/28/[address]: Dr. Elise Montelongo DO : 1950 BED: 1 DIS: 07/01/2021 SPEC #: [id number] RECD: 06/29/21 13:23 STATUS: MIGUELINA REMichael #: [id number] FATIMAH: 06/29/21 13:[address]: Elise Montelongo DEPT: CYTOLOGY RECD BY: Ana Arnold ENTERED: 06/30/21 10:25 SP TYPE: Fluid OTHR DR: MD Dr. Dino Bansal MD Tyra Schlabach, PRODUCTION REPAIRER-C Tissues: Pleural fluid, NOS Procedures: Special Stain Group II Surgery Specimen Level IV Cytospin Fluid HEADER OPERATION: Thoracentesis PRE-OP DIAGNOSIS: Right pleural effusion TISSUE SUBMITTED: Thoracentesis fluid for cytology DIAGNOSIS CYTOLOGY Thoracentesis fluid for cytology (cytospin and cell block): Negative for malignant cells. See comment. HUGO:celso 07/01/2021 COMMENT Clinical correlation and appropriate follow up are necessary. CYTOLOGY STUDY Slides are reviewed. CYTOLOGY GROSS Received is 95 ml of cloudy cristian fluid labeled with the patient's name and and designated per the requisition as thoracentesis. Submitted for cytology preparation including cell block. / celso 06/30/2021 TC:5 CPT: 78799, 92672
[2021-06-29] MEDS: Lidocaine 2% (20 ml mdv) 20 ML Vial INFILT (13:05)
--- NOTE | 2021-06-29 13:15 | RAD_ITS ---
STUDY: X-RAY CHEST REASON FOR EXAM: Male, 70 years old. POST THORA TECHNIQUE: AP inspiration and expiration views. COMPARISON: None. FINDINGS: EKG electrodes are seen. The patient is status post right thoracentesis. There is no evidence of pneumothorax. RAD/Chest Insp/Exp 2 View IMPRESSION: No evidence of pneumothorax on the post right thoracocentesis images. Electronically Signed: Venkatesh Messer MD at 14:16 EST ,
[2021-06-29 13:26] LABS: Cytology, Body Fluid / CSF SEE PATHOLOGY REPORT
[2021-06-29] MEDS: Lidocaine 2% (20 ml mdv) 20 ML Vial (13:34)
[2021-06-29 14:26] LABS: Body Fluid Mononuclear WBC # 0.178 10^3/uL; Body Fluid Mononuclear WBC % 76.4 %; Body Fluid Polynuclear WBC # 0.055 10^3/uL; Body Fluid Polynuclear WBC % 23.6 %; Body Fluid Total Cells Counted 0.281 10^3/ul; Red Cell Count/Body Fluid 0.004 10^6/ul; White Blood Count/Body Fluid 0.233 10^3/uL
[2021-06-29 14:43] LABS: Glucose, Body Fluid 223 mg/dL (40-70); LDH,Body Fluid 84 Units/l (Not Establ.); Protein, Body Fluid 1.8 g/dL (Not Establ.)
--- NOTE | 2021-06-29 14:56 | CASEMGMT ---
Per [employer], pt's order is for 4L w/ exertion. CM to follow for home oxygen need and likely will need new order faxed. Nicanor MILLAN CM
--- NOTE | 2021-06-29 15:24 | ONC.CONSULT ---
Assessment & Plan Assessment/Plan (1) Leiomyosarcoma of lower extremity: Status: Acute Code(s): C49.20 - Malignant neoplasm of connective and soft tissue of unspecified lower limb, including hip Qualifiers: Laterality: right Qualified Code(s): C49.21 - Malignant neoplasm of connective and soft tissue of right lower limb, including hip (2) Pleural effusion: Status: Acute Code(s): J90 - Pleural effusion, not elsewhere classified (3) Pulmonary nodules: Status: Acute Code(s): R91.8 - Other nonspecific abnormal finding of lung field (4) Anemia, iron deficiency: Status: Acute Code(s): D50.9 - Iron deficiency anemia, unspecified Qualifiers: Iron deficiency anemia type: unspecified iron deficiency Qualified Code(s): D50.9 - Iron deficiency anemia, unspecified Plan: Mr Farshad Gonzalez is a pleasant 70 year old gentleman with multiple comorbidities, diagnosed with leiomyosarcoma involving right thigh s/p excision per Dr. Collazo February 2021. Admitted for management of acute on chronic respiratory failure secondary to acute on chronic heart failure, now presenting with increased number of pulmonary nodules, right sided adrenal nodule and increased in size of bilateral pleural effusions. Underwent right sided thoracentesis earlier today. Cytology on that pleural fluid is pending. Will require PET/CT in out patient setting. Hgb 9.2 on admission, iron studies reveal deficiency. Stool for occult blood pending and Venofer has been ordered daily x 3 by primary team. Will follow with more suggestions based on cytology report. In the event, patient is discharged prior to cytology available, advise follow up with [facility]. Case discussed with Dr. Locke, who was in agreement with the aforementioned plan. HPI Consult Data Date of Service:: 06/29/21 PCP / Referring Provider: Dr. Dino Ward MD Attending: Dr. Elise Montelongo DO Chief Complaint Chief Complaint: h/o leimyosarcoma, lung nodules History of Present Illness History of Present Illness: Mr. Farshad Gonzalez is a pleasant 70 year old gentleman with a PMH positive for a fib, CAD s/p CABG multiple coronary stents, COPD, VCA, DM, HTN, SD, obesity, neuropathy who was diagnosed with leiomyosarcoma involving the right thigh October 2020. Referred by his primary care to ortho onc surgeon, Dr. Abdelrahman Collazo. As part of initial staging he underwent CT chest abdomen and pelvis with contrast on 12/06/2020 at [facility] which showed mildly enlarged subcarinal lymph nodes, 1.2 x 1.2 cm noncalcified nodule in the left lower lobe, 3.2 x 1.1 cm pleural-based density in the right lower lobe and a 2.6 cm pleural-based nodule in the left lower lobe, small bilateral pleural effusions, low-attenuation right adrenal mass, borderline RP lymphadenopathy. PET/CT obtained 01/04/2021 at [facility] demonstrated large hypermetabolic focus soft tissue right thigh SUV 12.4, measured 7.9 x 9.8 cm, uptake in right lobe thyroid, SUV 2.3 (criteria for neoplasm not fulfilled) but noncalcified density in left lower lobe was not PET avid. Per patient self-reported history, he underwent an excision of right thigh mass on February 28, 2021 at [facility] per Dr. Collazo, later skin grafted per plastic surgeon, Dr. Sims. The patient describes a lengthy, complicated course of healing post operatively complicated by infection requiring atb in his home. States It is almost healed, cites one small area is still being packed by home health nurse from [facility] visiting every other day. Per patient, he has not yet been evaluated by a medical or radiation oncologist. Mr. Gonzalez developed increased SOB over the course of the last 3 weeks and presented with c/o dyspnea to [facility] ED yesterday. CTA chest showed bilat pleural effusions R>L with bibasilar atelectasis, multiple pulmonary nodules and 2.7 cm nodule in right adrenal gland but no PE. Labs findings significant for normocytic anemia, Hgb 9.2 and BNP 817.4. He was subsequently admitted for management of acute on chronic respiratory failure secondary to acute on chronic heart failure. Upon entering the room, the patient is sitting upright in bed conversing with spouse at the bedside. States he just returned from thoracentesis. Denies any pain, reports dyspnea is modestly improved in comparison to yesterday. Describes good support system at home by way of spouse and family, relatively sedentary lifestyle. Appetite has been good, no weight loss. 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 Advanced Directives Power of Cook Fast Food: No Living Will: No [facility] Medical History (Updated 06/29/21 @ 16:24 by Waleska Max RING ROLLING MACHINE OPERATOR, RING ROLLING MACHINE OPERATOR-C) Anemia, iron deficiency Atherosclerosis of coronary artery bypass graft without angina pectoris Atrial fibrillation Bilateral carotid artery stenosis Cancer COPD (chronic obstructive pulmonary disease) Coronary artery disease CVA (cerebral vascular accident) Diabetes Dyspnea on exertion Essential hypertension Fatigue Former smoker History of myocardial infarction Hyperlipidemia Hypertension Hypothyroidism Ischemic cardiomyopathy Lower back pain Myocardial infarct Neuropathy Normocytic anemia Obesity On home oxygen therapy Paroxysmal atrial fibrillation Type 2 diabetes mellitus Home Medications aspirin 81 mg tablet,delayed release 81 mg PO DAILY 11/09/17 [History Last Taken 06/28/21] glimepiride 4 mg tablet 4 mg PO DAILY 11/09/17 [History Last Taken 06/28/21] metformin 1,000 mg tablet 1,000 mg PO BID 11/09/17 [History Last Taken 06/28/21] nitroglycerin 0.4 mg sublingual tablet 0.4 mg SUBLINGUAL Q5M PRN #90 tab 09/23/20 [Rx Last Taken Unknown] flash glucose sensor #2 ea 03/08/21 [Rx Last Taken Unknown] fluticasone fur. 200 mcg-umeclid 62.5 mcg-vilant 25 mcg inhalat.powder 1 inh INHALATION DAILY ea 06/20/21 [History Last Taken 06/28/21] levothyroxine 50 mcg tablet 50 mcg PO DAILY tab 06/20/21 [History Last Taken 06/28/21] albuterol sulfate 2.5 mg INHALATION BID 06/28/21 [History Last Taken 06/28/21] amlodipine 10 mg PO QDAY 06/28/21 [History Last Taken 06/28/21] apixaban [Eliquis] 5 mg PO BID 06/28/21 [History Last Taken 06/28/21] atorvastatin 40 mg PO DAILY 06/28/21 [History Last Taken 06/27/21] carvedilol 12.5 mg PO BID 06/28/21 [History Last Taken 06/28/21] clonidine HCl 0.2 mg PO DAILY 06/28/21 [History Last Taken 06/28/21] dulaglutide [Trulicity] 0.75 mg SUBCUT TU 06/28/21 [History Last Taken 06/21/21] furosemide 40 mg PO DAILY 06/28/21 [History Last Taken 06/28/21] lisinopril 40 mg PO DAILY 06/28/21 [History Last Taken 06/28/21] Allergy/AdvReac Type Severity Reaction Status Date / Time No Known Allergies Allergy Verified 06/28/21 11:23 Family History Father CAD (coronary artery disease) Hx of CABG, Onset Age: 56 Mother Cancer Surgical History (Updated 06/29/21 @ 16:23 by Waleska Santana NP, RING ROLLING MACHINE OPERATOR-C) Aortocoronary bypass status (~07/12/00) History of coronary artery stent placement History of detached retina repair Leiomyosarcoma of lower extremity Postsurgical percutaneous transluminal coronary angioplasty (PTCA) status Presence of stent in coronary artery (~05/22/12) Social History Smoking Status: Former smoker how long ago did patient quit smokin years ago alcohol intake: never substance use type: does not use caffeine: Yes Type: coffee Number of servings: 2 and tea Number of servings: 6 ROS Constitutional Constitutional: Reports fatigue and weakness; Denies change in weight, chills, fever(s), frequent falls, headache(s) or night sweats Cardiovascular Cardiovascular: Reports edema; Denies chest pain, lightheadedness, palpitations or syncope Respiratory/Chest Respiratory/Chest: Reports shortness of breath at rest; Denies cough, productive cough or wheezing Gastrointestinal Gastrointestinal: Denies abdominal pain, constipation, diarrhea, hematochezia, melena, nausea or vomiting Genitourinary Genitourinary: Denies burning urination, difficulty urinating, dysuria, hematuria, urinary frequency, urinary incontinence or urinary urgency Musculoskeletal Musculoskeletal: Denies back pain, joint pain or muscle weakness Integumentary Integumentary: Reports wounds and other Details: right thigh and left swain ; Denies erythema, lesions or rash Neurologic Neurologic: Reports numbness and paresthesias; Denies abnormal speech, confusion, dizziness, focal weakness, seizure-like activity or syncope Psychiatric Psychiatric: Denies anxiety or depression Hematologic/Lymphatic Hematologic/Lymphatic: Reports easy bruising and other Details: on DOAC and ASA at home ; Denies anemia or easy bleeding Allergic/Immunologic Allergic/Immunologic: Denies hives or asthma Physical Exam Const alert, oriented x3 and no apparent distress Orientation / Consciousness: awake HEENT normocephalic and moist oral mucous membranes Mouth: No lesions and No thrush Eyes conjunctivae normal and no scleral icterus Neck no lymphadenopathy Resp Auscultation: diminished lung sounds Cardio regular rate and regular rhythm Peripheral Pulses: pulses 2+ throughout GI normal to inspection, nondistended, normoactive bowel sounds and non-tender GI Narrative: difficult to discern absence of hepatosplenomegaly d/t large body habitus Inspection: central obesity Extremity normal to inspection General Extremity: edema bilateral lower extremity Details: moderate Skin Skin Narrative: Right thigh wound s/p leiomyosarcoma excision with skin grafting-covered with DSD. LLE anterior superficial wound, not draining. Neuro CN's II-XII intact bilaterally Psych mental status grossly normal Attitude: engaged Vital Signs Temperature 97.6 F L 06/29/21 13:43 Temperature Source Oral 06/29/21 13:43 Pulse Rate 74 06/29/21 13:43 Pulse Strength Normal (2+) 06/29/21 10:00 Respiratory Rate 20 H 06/29/21 13:43 Respiratory Effort 06/29/21 13:05 Respiratory Depth Shallow 06/29/21 08:20 Respiratory Pattern Normal 06/29/21 13:05 Blood Pressure 128/51 H 06/29/21 13:43 Blood Pressure Mean 76 06/29/21 13:43 Blood Pressure Source Monitor 06/29/21 13:43 Blood Pressure Position Semi-Fowlers 06/29/21 13:43 Blood Pressure Location Right Arm 06/29/21 13:43 Pulse Ox 95 06/29/21 13:43 Oxygen Delivery Method Nasal Cannula 06/29/21 13:43 Oxygen Flow Rate (L/min) 2 06/29/21 13:43 Laboratory Results - last 24 hr 06/28/21 12:05: B-Natriuretic Peptide 817.4 H 06/28/21 18:26: Vitamin B12 490 06/28/21 18:26: Magnesium 1.6, Iron 25 L, TIBC 462 H, Iron Saturation 5.4 L, Ferritin 44, Troponin I High Sens 24, Folate 9.10 06/28/21 23:00: POC Glucose 292 H 06/29/21 04:30: WBC 4.2 L, RBC 3.69 L, Hgb 8.7 L, Hct 31.2 L, MCV 84.6, MCH 23.6 L, MCHC 27.9 L, RDW Std Deviation 49.5 H, RDW Coeff of Oliva 16.3 H, Plt Count 319, MPV 9.4, Immature Gran % (Auto) 0.500, Neut % (Auto) 79.6 H, Lymph % (Auto) 12.0 L, Ellis % (Auto) 7.4, Eos % (Auto) 0.0, Baso % (Auto) 0.5, Absolute Neuts (auto) 3.3, Absolute Lymphs (auto) 0.50 L, Nucleated RBC % 0, Differential Comment SCANNED, Diff Path Review September foll 06/29/21 04:30: Sodium 137, Potassium 4.2, Chloride 97 L, Carbon Dioxide 37.0 H, Anion Gap 3 L, BUN 22 H, Creatinine 0.66 L, Estim Creat Clear Calc 65.18, Est GFR (MDRD) Af Amer 154, Est GFR (MDRD) Non-Af 127, BUN/Creatinine Ratio 33.3 H, Glucose 210 H, Calcium 8.9, TSH 0.90 06/29/21 04:30: Magnesium 1.9 06/29/21 04:30: Lactate Dehydrogenase 146, Total Protein 7.0, Globulin 4.1, Albumin/Globulin Ratio 0.7 L 06/29/21 06:41: POC Glucose 214 H 06/29/21 11:13: POC Glucose 232 H 06/29/21 13:00: Fluid Glucose 223 H, Fluid Total Protein 1.8, Fluid LDH 84 06/29/21 13:00: Fluid WBC 0.233, Fluid RBC 0.004, Fluid Tot Cell Count 0.281, Fld Polynuclear WBCs # 0.055, Fld Polynuclear WBCs % 23.6, Fluid Mononuclear WBCs 0.178, Fld Mononuclear WBCs % 76.4 Microbiology 06/29/21 09:10 Mucosa - Nasopharyngeal Respiratory Panel (PCR) - Final 06/28/21 13:31 Nasal Secretion SARS-CoV-2 Antigen (Rapid) - Final Diagnostic Data Chest CTA 06/28/21 13:03 IMPRESSION: Increased number of nodules in both lungs suggestive of progressive metastatic deposits. Bilateral pleural effusions right greater than left with bibasilar atelectasis worse on the right side. Electronically Signed: Venkatesh Messer MD at 14:30 EST , Thoracentesis Ultrasound 06/29/21 10:25 IMPRESSION: Ultrasound-guided right thoracentesis. Electronically Signed: Venkatesh Messer MD at 14:11 EST , Chest X-Ray 06/29/21 13:15 IMPRESSION: No evidence of pneumothorax on the post right thoracocentesis images. Electronically Signed: Venkatesh Messer MD at 14:16 EST ,
[2021-06-29 15:33] LABS: Lymphocytes 32 %; Mesothelial Cells 1 %; Monocytes 5 %; Neutrophil (Segs) 39 %; Other Cell Type/BF 23 %
[2021-06-29 15:34] LABS: Appearance/Body Fluid SL CLDY; Auto B Fluid Analyzer BKGD Ct COUNTS W/IN LIMITS (W/IN LIMITS); Color/Body Fluid YELLOW; Source- Body Fluid THORACENTESIS
[2021-06-29 15:35] LABS: Body Fluid QC Type(s) BF1Q,BF2Q
--- NOTE | 2021-06-29 15:46 | CASEMGMT ---
Social Work SW met w/pt and , gave them information for local places that can install ramps. SW also gave them the number for [employer], explained that [employer] may be able to help. states that she has called the places on the list, and nobody is able to help them. SW explained she could call [employer], to see if they would help. then went on to state frustration with everyone wanting financial information, information on life insurance, etc. She states that this has nothing to do with it, she states she is watching their bank account go lower and lower. SW then did attempt to offer support around both their financial situation and their personal struggles with illness and a recent loss of a daughter. expressing frustration overall with the whole situation. SW asked about applying for Medicaid, pt states that they are just over income. SW asked if they would like SW to send a referral to [facility] for a intermediate frame tender care consult. states her mother had those services, she does not think they will qualify. She states if SW will complete the application though they would be open to SW doing this. SW explained will also call [employer] to see if they have any ideas of financial assist. SW faxed referral for the penitentiary care consult to [facility]. SW called [employer] and left a message. WOLFGANG also asked Mayra, pt navigator, to check in w/pt if he does indeed come to the cancer center here. [facility] remains available for support to pt and family should they become receptive to it. PANCHO Gloria
[2021-06-29 16:30] LABS: Bedside Glucose 216 mg/dL (70-110)
[2021-06-29] MEDS: Atorvastatin Calcium 40 MG Tablet PO (21:21)
[2021-06-29 21:31] LABS: Bedside Glucose 156 mg/dL (70-110)
[2021-06-30] VITALS (12 sets, daily range): BP systolic 119–148; BP diastolic 61–78; PULSE 63–86; RESP 18–20; TEMP 36.4–36.6; O2SAT 90–96
[2021-06-30] MEDS: Levothyroxine 50 MCG Tablet PO (06:11)
[2021-06-30] MEDS: Insulin Lispro 100 UNIT/ML INSULN.PEN SC ×4 (06:11→21:54)
[2021-06-30 06:30] LABS: Bedside Glucose 171 mg/dL (70-110)
[2021-06-30 06:43] LABS: Absolute Neutrophil Count 4.7 X10^3/uL (2.0-7.7); Basophil# 0.08 X10^3/uL; Basophil% 1.2 % (0-1); Eosinophil# 0.11 X10^3/uL; Eosinophils% 1.6 % (0-5); Hemoglobin 8.6 g/dL (13.0-16.5); Lymphocyte % 17.9 % (19-41); Mean Corp Hgb Conc 26.9 g/dL (32-36); Mean Corpuscular Hgb 22.8 pg (27.0-32.0); Mean Corpuscular Volume 84.9 fL (80-94); Mean Platelet Vol. 9.5 fl (6.2-12.0); Monocyte# 0.62 X10^3/uL; Monocyte% 9.3 % (0-10); NRBC Flagged by Analyzer 0 % (0-5); Neutrophil # 4.65 X10^3/uL (2.7-7.7); Neutrophil % 69.6 % (47-70); Platelet Count 325 K/mm3 (150-450); RBC Distribution Width CV 16.8 % (11.6-14.6); RBC Distribution Width SD 51.1 fl (35.1-43.9); Red Blood Count 3.77 M/mm3 (4.6-6.2); White Blood Count 6.7 K/mm3 (4.4-11.0)
[2021-06-30 07:48] LABS: Anion Gap 3 (5-15); BUN 26 mg/dL (7-18); BUN/Creat Ratio 33.8 RATIO (10-20); Chloride 97 mmol/L (98-107); Creatinine, Serum 0.77 mg/dL (0.70-1.30); EST Glomerular Filtration Rate 106 mL/min (>60); Est Glom Filt Rate - Afr Amer 129 mL/min (>60); Estimated Creatinine Clearance 65.18 ml/min; Glucose 174 mg/dL (74-106); Potassium 3.4 mmol/L (3.5-5.1); Sodium Level 137 mmol/L (136-145)
[2021-06-30] MEDS: cloNIDine HCl 0.2 MG Tablet PO (09:45)
[2021-06-30] MEDS: Lisinopril 40 MG Tablet PO (09:45)
[2021-06-30] MEDS: amLODIPine 10 MG Tablet PO (09:45)
[2021-06-30] MEDS: Furosemide 40 MG/4 ML Vial IV ×2 (09:46→17:46)
[2021-06-30] MEDS: Carvedilol 12.5 MG Tablet PO ×2 (09:46→21:55)
[2021-06-30] MEDS: Aspirin E.C. 81 MG Tablet PO (09:46)
[2021-06-30] MEDS: 0.9% Saline Lock 10 ML Syringe IV ×2 (09:47→17:46)
[2021-06-30 11:36] LABS: Bedside Glucose 212 mg/dL (70-110)
--- NOTE | 2021-06-30 11:48 | PN.HOSP_ITS ---
Documented by User: Miguel CALDWELL 06/30/21 12:09 Subjective Subjective Patient is a 70-year-old male lying in bed, alert and oriented x3. Patient reports improvement in shortness of breath from admission. Denies development of any new symptoms overnight. Does not appear in acute distress. Objective Data Objective Data Vital Signs: Vital Signs Temp Pulse Resp BP Pulse Ox 97.5 F L 82 18 119/69 92 06/30/21 09:40 06/30/21 09:40 06/30/21 09:40 06/30/21 09:40 06/30/21 09:40 Oxygen Flow Rate (L/min) [3] 7 Oxygen Flow Rate (L/min) [2] 7 Oxygen Flow Rate (L/min) [1 ( 7 Initial Baseline)] Oxygen Flow Rate (L/min) 3 Oxygen Delivery Method [3] Nasal Cannula Oxygen Delivery Method [2] Nasal Cannula Oxygen Delivery Method [1 ( Nasal Cannula Initial Baseline)] Oxygen Delivery Method Nasal Cannula Weight: 278 lb 10.629 oz Body Mass Index (BMI) 43.6 Intake & Output: Intake and Output for Last 24 Hours 06/28/21 06/29/21 06/30/21 23:59 23:59 23:59 Intake Total 644 / 964 370 / 370 Output Total 2345 / 2345 200 / 200 Balance -1701 / -1381 170 / 170 Lab / Micro Data Result Diagrams: 06/30/21 05:40 06/30/21 05:40 Labs: Laboratory Results - last 24 hr 06/29/21 04:30: Lactate Dehydrogenase 146, Total Protein 7.0, Globulin 4.1, Albumin/Globulin Ratio 0.7 L 06/29/21 13:00: Fluid Glucose 223 H, Fluid Total Protein 1.8, Fluid LDH 84 06/29/21 13:00: Fluid Source THORACENTESIS, Fluid Color YELLOW, Fluid Appearance SL CLDY, Fluid WBC 0.233, Fluid RBC 0.004, Fluid Tot Cell Count 0.281, Fld Polynuclear WBCs # 0.055, Fld Polynuclear WBCs % 23.6, Fluid Mononuclear WBCs 0.178, Fld Mononuclear WBCs % 76.4, Fluid Neutrophils 39, Fluid Lymphocytes 32, Fluid Monocytes 5, Fld Mesothelial Cells 1, Fluid Other Cells 23, Fl Pathologist Comment May follow, Fluid Comment 2 SEE COMMENT 06/29/21 16:16: POC Glucose 216 H 06/29/21 21:17: POC Glucose 156 H 06/30/21 05:40: WBC 6.7, RBC 3.77 L, Hgb 8.6 L, Hct 32.0 L, MCV 84.9, MCH 22.8 L , MCHC 26.9 L, RDW Std Deviation 51.1 H, RDW Coeff of Oliva 16.8 H, Plt Count 325, MPV 9.5, Immature Gran % (Auto) 0.400, Neut % (Auto) 69.6, Lymph % (Auto) 17.9 L , Webb % (Auto) 9.3, Eos % (Auto) 1.6, Baso % (Auto) 1.2 H, Absolute Neuts (auto) 4.7, Absolute Lymphs (auto) 1.20, Nucleated RBC % 0 06/30/21 05:40: Sodium 137, Potassium 3.4 L, Chloride 97 L, Carbon Dioxide 37.0 H, Anion Gap 3 L, BUN 26 H, Creatinine 0.77, Estim Creat Clear Calc 65.18, Est GFR (MDRD) Af Amer 129, Est GFR (MDRD) Non-Af 106, BUN/Creatinine Ratio 33.8 H, Glucose 174 H, Calcium 9.0 06/30/21 06:09: POC Glucose 171 H 06/30/21 11:28: POC Glucose 212 H Micro: Microbiology 06/29/21 09:10 Mucosa - Nasopharyngeal Respiratory Panel (PCR) - Final 06/28/21 13:31 Nasal Secretion SARS-CoV-2 Antigen (Rapid) - Final Radiography Diagnostic Testing: Radiology Impression Echocardiogram 06/28/21 17:29 Interpretation Summary The study was technically difficult. Contrast injection was performed. Mildly dilated left ventricle. Mild segmental systolic dysfunction (see wall motion). The estimated ejection fraction is 40 %. The left atrium is moderately enlarged. The right atrium is moderately enlarged. There is moderate mitral annular calcification. Extension of the mitral annular calcification on the base of the posterior mitral valve leaflet. Mild-Moderate (1-2+) mitral valve insufficiency. Mild to moderate (1-2+) tricuspid valve insufficiency. Mild focal aortic valve calcification. Right ventricular systolic pressure estimated to be 36 mmHg. Unable to assess diastolic dysfunction. Ordering Physician: Shamika Gallego Referring Physician: Dino Ward Performed By: Jocelyn Hemphill, VLADIMIR, RVT Thoracentesis Ultrasound 06/29/21 10:25 IMPRESSION: Ultrasound-guided right thoracentesis. Electronically Signed: Venkatesh Messer MD at 14:11 EST , Chest X-Ray 06/29/21 13:15 IMPRESSION: No evidence of pneumothorax on the post right thoracocentesis images. Electronically Signed: Venkatesh Messer MD at 14:16 EST , Physical Exam Const alert, oriented x3 and no apparent distress HEENT head/scalp atraumatic and moist oral mucous membranes Head and Scalp: normocephalic Eyes PERRL, EOMs intact bilaterally and conjunctivae normal Neck no lymphadenopathy, supple and no JVD Resp normal respiratory effort, no retractions and no use of accessory muscles Cardio regular rate, regular rhythm and no JVD GI normal to inspection, nondistended, normoactive bowel sounds Extremity normal to inspection, full ROM and no clubbing, cyanosis or edema Skin no rashes or lesions noted Neuro CN's II-XII intact bilaterally Psych affect normal Assessment & Plan Assessment/Plan (1) Acute and chronic respiratory failure with hypoxia: PLAN: Day 2 Discharge planning: Current plan is for patient to discharge home when medically ready. 1) acute on chronic hypoxic respiratory failure of mixed etiology Secondary to acute on chronic HFrEF, ischemic cardiomyopathy and bilateral pleural effusion. Updated echocardiogram on 06/28 demonstrated mildly dilated left ventricle, mild segmental systolic dysfunction, an EF of 40%, and RVSP of 36 mmHg and indeterminate diastolic dysfunction. EF is mildly worse than in November 2020 where EF was noted to be 45%. Continue supplemental oxygen, obtain ambulatory pulse ox on discharge, right-sided thoracentesis completed on 06/29 studies and cytology pending. 2) iron deficiency anemia Stable, hemoglobin currently 8.6. Continue IV iron and then transition to oral iron on discharge. 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 CT-A of chest with increased number of nodules in both lungs suggestive of progressive metastatic deposits. Thoracentesis with fluid studies as above. [facility] oncology consult ordered. 4) CAD Status post CABG/PTCA/CANDICE. Follows with Dr. Vega. Continue aspirin, statin, carvedilol, lisinopril and Eliquis. 5) PAF Rate is controlled on carvedilol, patient is anticoagulated on Eliquis. Cont inue carvedilol and Eliquis. 6) HTN Stable, continue amlodipine, carvedilol, clonidine and lisinopril. 7) chronic COPD Do not believe this is contributing to #1 due to absence of wheezing on exam. Continue bronchodilators. 8) DM2 Hold home diabetic regimen, continue Accu-Cheks with sliding scale insulin and Lantus nightly. 9) hypothyroidism Continue Synthroid. DVT prophylaxis - Eliquis Patient seen by Miguel Coles PA-C, under the supervision of Dr. Montelongo. Time spent on patient care: 10 minutes. Documented by User: Dr. Elise Montelongo DO 06/30/21 15:26 Subjective Subjective This patient was seen in conjunction with JAVI Escudero. The following is a representation my independent history and physical examination. Please see below for the addendum the above. The patient had some confusion overnight and thought he was in an auto body shop and reports that he was told that the doctor who performed his procedure had the auto body shop built underneath the hospital just for him. He states his breathing is much better and felt it was better as soon as the fluid was removed yesterday. 1.3 L were removed from his right lung. He had been on oxygen at home and is currently just requiring 3 L down from heated high flow nasal cannula at 11 L yesterday. Objective Data Lab / Micro Data Result Diagrams: 06/30/21 05:40 06/30/21 05:40 Physical Exam Const alert, oriented x3 and no apparent distress Constitutional Narrative: Morbidly obese white male sitting up in a chair at the bedside, adamant that he was in a car garage with a doctor last evening, at the bedside, patient is alert and oriented x3 at this time, nontoxic Orientation / Consciousness: awake, oriented to person, oriented to place and oriented to time Exam Limitations: no limitations Nutritional Appearance: morbidly obese HEENT normocephalic, head/scalp atraumatic and moist oral mucous membranes Head and Scalp: normocephalic Resp normal respiratory effort, no retractions and no use of accessory muscles Resp Narrative: Still diminished but better air movement in the right base, no wheezes today Auscultation: crackles bilateral base, wheezes and diminished lung sounds; Negative for rales or rhonchi Cardio regular rate, S1 normal heart sound, S2 normal heart sound, no murmurs, no rub, no gallops, no clicks and no JVD Cardio Narrative: Atrial fibrillation Peripheral Pulses: pulses 2+ throughout GI normal to inspection, nondistended, normoactive bowel sounds, soft to palpation, non-tender and non-distended GI Narrative: abdomen is protuberant Extremity normal to inspection and full ROM Extremity Narrative: Flap from previous right lower extremity surgery noted, wound is currently covered with a clean and dry dressing, no cyanosis or clubbing, bilateral lower extremity pitting edema noted, 1+ General Extremity: edema bilateral lower extremity Details: moderate Peripheral Pulses: Yes pulses 2+ throughout Skin Lesions: no lesions Rashes: no rashes Trauma: no lacerations or abrasions Neuro oriented x3, CN's II-XII intact bilaterally, moves all extremities, no focal motor deficits and deep tendon reflexes 2+ bilaterally Sensorium / Orientation: awake and alert Speech: speech normal Psych mental status grossly normal Assessment & Plan Assessment/Plan (1) Acute and chronic respiratory failure with hypoxia: (2) Anemia, iron deficiency: QUALIFIERS: Iron deficiency anemia type: unspecified iron deficiency Qualified Code(s): D50.9 - Iron deficiency anemia, unspecified (3) Pleural effusion: (4) Pulmonary nodules: PLAN: Assessment: Acute on chronic hypoxic respiratory failure Large right pleural effusion-resolved status post thoracentesis Hypokalemia Multiple pulmonary nodules suspicious for metastatic disease Leiomyosarcoma Chronic diastolic heart failure Chronic normocytic anemia Iron deficiency CAD status post CABG/PCI Hypertension Hyperlipidemia COPD Stroke DM-2 Hypothyroidism PAF Plan: -Continue chronic medications as noted above -Thoracentesis performed yesterday for 1300 cc -Restart Eliquis -Thus far pleural effusion appears to be transudate per lights criteria--> await cytology -Continue diuresis -Wean oxygen as able -Echocardiogram shows a mildly dilated LV with an EF of 45%, moderately enlarged bilateral atrium, mild to moderate mitral valve insufficiency, mild to moderate tricuspid valve insufficiency and a right ventricular systolic pressure at 36 mmHg -Pulmonary pressures appear to be better, EF is slightly more depressed at 40 from 45 on echo done in November 2020. -Continue IV iron -We will start on oral iron at discharge -60 mEq of oral potassium ordered with low serum potassium -BMP in a.m. -Probable discharge home in the next 24 hours-I do suspect the patient will need supplemental oxygen at discharge -Patient follow-up with oncology recommended for outpatient PET scan to be repeated Charges/Coding Visit Charges Inpatient E&M: 08000 [facility] Hosp L2
[2021-06-30] MEDS: Potassium Chloride Oral Tablet 20 MEQ 60 MEQ PO (12:32)
[2021-06-30 13:10] LABS: Pathologist Comment/Body Fluid Reviewed
[2021-06-30 13:14] LABS: Pathologist Review Reviewed
[2021-06-30 14:00] LABS: International Normalized Ratio 1.3; Prothrombin Time (Protime)PT. 15.6 SECONDS (11.7-14.9)
[2021-06-30] MEDS: APIXABAN 5 MG TABLET PO ×2 (14:43→21:55)
[2021-06-30 16:30] LABS: Bedside Glucose 197 mg/dL (70-110)
[2021-06-30] MEDS: Albuterol 2.5 MG/3 ML VIAL.NEB. INHALATION (19:28)
[2021-06-30 21:56] LABS: Bedside Glucose 180 mg/dL (70-110)
[2021-06-30] MEDS: Atorvastatin Calcium 40 MG Tablet PO (21:56)
[2021-07-01] VITALS (8 sets, daily range): BP systolic 105–167; BP diastolic 55–103; PULSE 66–86; RESP 18; TEMP 36.4–36.8; O2SAT 87–100
[2021-07-01 05:48] LABS: Absolute Lymphocyte Count 1.08 X10^3/uL (0.83-4.51); Absolute Neutrophil Count 5.3 X10^3/uL (2.0-7.7); Basophil# 0.08 X10^3/uL; Basophil% 1.1 % (0-1); Eosinophil# 0.22 X10^3/uL; Eosinophils% 2.9 % (0-5); Hematocrit 31.5 % (40-54); Lymphocyte # 1.08 X10^3/ul (0.83-4.51); Lymphocyte % 14.4 % (19-41); Mean Corp Hgb Conc 28.6 g/dL (32-36); Mean Corpuscular Hgb 24.1 pg (27.0-32.0); Mean Corpuscular Volume 84.2 fL (80-94); Mean Platelet Vol. 9.6 fl (6.2-12.0); Monocyte# 0.76 X10^3/uL; Monocyte% 10.2 % (0-10); NRBC Flagged by Analyzer 0 % (0-5); Neutrophil % 70.9 % (47-70); Platelet Count 336 K/mm3 (150-450); RBC Distribution Width SD 50.4 fl (35.1-43.9); Red Blood Count 3.74 M/mm3 (4.6-6.2); White Blood Count 7.5 K/mm3 (4.4-11.0)
[2021-07-01 06:07] LABS: Anion Gap 1 (5-15); BUN 21 mg/dL (7-18); BUN/Creat Ratio 30.1 RATIO (10-20); Calcium,Total 9.1 mg/dL (8.5-10.1); Chloride 97 mmol/L (98-107); EST Glomerular Filtration Rate 119 mL/min (>60); Est Glom Filt Rate - Afr Amer 144 mL/min (>60); Estimated Creatinine Clearance 65.18 ml/min; Glucose 173 mg/dL (74-106); Potassium 3.5 mmol/L (3.5-5.1); Sodium Level 139 mmol/L (136-145)
[2021-07-01] MEDS: Levothyroxine 50 MCG Tablet PO (06:12)
[2021-07-01] MEDS: Insulin Lispro 100 UNIT/ML INSULN.PEN SC ×2 (06:12→11:19)
[2021-07-01 06:25] LABS: Bedside Glucose 170 mg/dL (70-110)
[2021-07-01] MEDS: Furosemide 40 MG/4 ML Vial IV (09:33)
[2021-07-01] MEDS: Lisinopril 40 MG Tablet PO (09:33)
[2021-07-01] MEDS: Aspirin E.C. 81 MG Tablet PO (09:33)
[2021-07-01] MEDS: cloNIDine HCl 0.2 MG Tablet PO (09:33)
[2021-07-01] MEDS: amLODIPine 10 MG Tablet PO (09:33)
[2021-07-01] MEDS: 0.9% Saline Lock 10 ML Syringe IV (09:34)
[2021-07-01] MEDS: APIXABAN 5 MG TABLET PO (09:34)
[2021-07-01] MEDS: Carvedilol 12.5 MG Tablet PO (09:34)
--- NOTE | 2021-07-01 09:50 | RAD_ITS ---
STUDY: X-RAY CHEST REASON FOR EXAM: Male, 70 years old. Sob TECHNIQUE: Single AP portable view of the chest. COMPARISON: Comparison is made with prior study dated 06/29/2021. FINDINGS: EKG electrodes are seen. Stable nodular density in the left lower lobe as well as thickening of the right major fissure. There is no demonstrated pleural abnormality. Sternal cerclage wires and vascular clips are present from a prior sternotomy and coronary artery bypass graft procedure (CABG). Normal mediastinum and tasia. Normal visualized pulmonary arteries. There is atherosclerotic calcification of the aortic arch with tortuosity. Normal visualized thoracic spine. Normal visualized ribs, clavicles, and shoulders. There is no demonstrated abnormality of the visualized soft tissue structures of the upper abdomen. RAD/Chest 1 View (Portable) IMPRESSION: Stable examination. Electronically Signed: Venkatesh Messer MD at 12:31 EST ,
--- NOTE | 2021-07-01 11:08 | PCM.DC ---
Discharge Instructions Diet Discharge Diet: 6 Cup Fluid Restriction, 2000 mg Sodium Diet and Carb Control Diet Activity Discharge Activity: Return to Normal Activity Weight Bearing Status: Weight bearing as tolerated Dressing / Incision Call your doctor if you observe: Fever of 101 or Higher, Numbness or Tingling, Shortness of breath, Dizziness, Chest pain, Increased palpitations (irregular heartbeat) and Calf discomfort Follow Up Care Please Follow Up With: Primary care provider When: Within the next two weeks. Test Results: Test results from this visit will be discussed in further detail at your follow-up appointment, if applicable. Discharge Plan Admission Admit Date/Time: 06/28/21 16:28 Primary Reason for Your Visit: Shortness of Breath Attending Provider: Elise Montelongo Primary Care Provider: Dino Ward Consulting Providers: Waleska Santana NP Instructions Patient Instructions: Thoracentesis Dc Additional Instructions / Restrictions: Please call your Primary Doctor on Sunday07/04/2021 for an order for a basic metabolic profile to be done on Sunday or Sunday of next week with an increase in your lasix dose Discharge Orders/Prescriptions Prescriptions: New ferrous sulfate 325 mg (65 mg iron) tablet 325 mg PO BID Qty: 60 RF: 0 furosemide [Lasix] 40 mg tablet 40 mg PO BID Qty: 60 RF: 0 Continued aspirin 81 mg tablet,delayed release (DR/EC) 81 mg PO DAILY RF: 0 glimepiride [Amaryl] 4 mg tablet 4 mg PO DAILY RF: 0 metformin 1,000 mg tablet 1,000 mg PO BID RF: 0 nitroglycerin 0.4 mg tablet, sublingual 0.4 mg sublingual Q5M PRN (Reason: chest pain) Qty: 90 RF: 6 [id number] 200-62.5-25 mcg blister with device 1 inh inhalation DAILY RF: 0 levothyroxine 50 mcg tablet 50 mcg PO DAILY RF: 0 albuterol sulfate 2.5 mg /3 mL (0.083 %) solution for nebulization 2.5 mg inhalation BID RF: 0 atorvastatin 40 mg tablet 40 mg PO DAILY RF: 0 clonidine HCl 0.2 mg tablet 0.2 mg PO DAILY RF: 0 lisinopril 40 mg tablet 40 mg PO DAILY RF: 0 Trulicity 0.75 mg/0.5 mL pen injector 0.75 mg subcut TU RF: 0 carvedilol 12.5 mg tablet 12.5 mg PO BID RF: 0 amlodipine 10 mg tablet 10 mg PO QDAY RF: 0 Eliquis 5 mg tablet 5 mg PO BID RF: 0 (DME) FreeStyle Belinda 2 Sensor Kit See Rx Instructions .ROUTE .MEDSUPPLY Qty: 2 RF: 0 Discontinued furosemide 40 mg tablet 40 mg PO DAILY RF: 0 Referrals / Follow Up: Lino Locke MD [NON-STAFF] - Within 1 Week (call and tell them this is for a hospital f/u for sarcoma) Dino Ward MD [Primary Care Provider] - Within 1 Week (call for lab Sunday and appt) Disposition Disposition (needs filled in before D/C Order can be placed): Home, Self Care
--- NOTE | 2021-07-01 11:09 | CASEMGMT ---
WOLFGANG received a call from Naty with [employer]. Naty said they have received some funding to possibly assist with a ramp. Naty said she will contact patient and/or his . WOLFGANG will let patient and his know that [employer] will be contacting them in regards to possibly getting a ramp built. Elis Khan [employer] [facility]
[2021-07-01 11:36] LABS: Bedside Glucose 222 mg/dL (70-110)
--- NOTE | 2021-07-01 12:07 | CASEMGMT ---
MONTY LEGGETT updated that patient will need 2lpm at rest and 4lpm with ambulation. MONTY LEGGETT called and updated Pastora at [facility]. Per Pastora patient refused portable tank prior and will need new script. MONTY LEGGETT received script for home oxygen with portability and faxed to [facility]. Patient provided with tank.
--- NOTE | 2021-07-01 12:46 | CASEMGMT ---
WOLFGANG spoke with patient's . WOLFGANG let her know that WOLFGANG spoke with Naty from [employer] and they may be able to help them get a ramp built. She was very pleased. WOLFGANG told her Naty or Nathanael will be calling her. She thanked WOLFGANG for the great news. Elis Khan [employer] [facility]
--- NOTE | 2021-07-01 14:44 | DS.PCM_ITS ---
Documented by User: Miguel CALDWELL 07/01/21 14:56 Providers Date of Admission: 06/28/21 Primary Care Physician: Dr. Dino Ward MD Consultations 06/28/21 17:29 Consult: Onc/Wound/registered radiation therapist Routine Comment: Reason for Consult:: right thigh wound 06/29/21 10:23 Consult: Oncology/Hematology Routine Consulting Provider: Waleska Santana NP Reason for Consult: Sarcoma with suspected lung mets, requesting transition to [facility] Consult: No MD Notified: Yes Date Notified: 06/29/21 Time Notified: 10:24 Method of Notification: Text Reason For Visit: RESPIRATORY FAILURE / CHF Diagnosis Discharge Diagnosis (1) Acute and chronic respiratory failure with hypoxia: Status: Chronic Code(s): J96.21 - Acute and chronic respiratory failure with hypoxia (2) Anemia, iron deficiency: Status: Acute Code(s): D50.9 - Iron deficiency anemia, unspecified Qualifiers: Iron deficiency anemia type: unspecified iron deficiency Qualified Code(s): D50.9 - Iron deficiency anemia, unspecified (3) Pleural effusion: Status: Acute Code(s): J90 - Pleural effusion, not elsewhere classified (4) Pulmonary nodules: Status: Acute Code(s): R91.8 - Other nonspecific abnormal finding of lung field Medications at Discharge Home Medications aspirin 81 mg tablet,delayed release 81 mg PO DAILY 11/09/17 glimepiride 4 mg tablet 4 mg PO DAILY 11/09/17 metformin 1,000 mg tablet 1,000 mg PO BID 11/09/17 nitroglycerin 0.4 mg sublingual tablet 0.4 mg SUBLINGUAL Q5M PRN #90 tab flash glucose sensor #2 ea 03/08/21 fluticasone fur. 200 mcg-umeclid 62.5 mcg-vilant 25 mcg inhalat.powder 1 inh INHALATION DAILY ea 06/20/21 levothyroxine 50 mcg tablet 50 mcg PO DAILY tab 06/20/21 Eliquis 5 mg PO BID 06/28/21 Trulicity 0.75 mg SUBCUT TU 06/28/21 albuterol sulfate 2.5 mg INHALATION BID 06/28/21 amlodipine 10 mg PO QDAY 06/28/21 atorvastatin 40 mg PO DAILY 06/28/21 carvedilol 12.5 mg PO BID 06/28/21 clonidine HCl 0.2 mg PO DAILY 06/28/21 lisinopril 40 mg PO DAILY 06/28/21 ferrous sulfate 325 mg PO BID #60 tab 07/01/21 furosemide [Lasix] 40 mg PO BID #60 tab 07/01/21 Hospital Course Procedures 2-D Echocardiogram and Transthoracic echo Summary of Care Provided Minutes Spent on Discharge: 20 Hospital Course: Patient is a 70-year-old male who was admitted to [facility] on 06/28/2021 for evaluation and management of acute on chronic hypoxic respiratory failure of mixed etiology. Course and management as below. 1) acute on chronic hypoxic respiratory failure of mixed etiology Secondary to acute on chronic HFrEF, ischemic cardiomyopathy and bilateral pleural effusion. Updated echocardiogram on 06/28 demonstrated mildly dilated left ventricle, mild segmental systolic dysfunction, an EF of 40%, and RVSP of 36 mmHg and indeterminate diastolic dysfunction. EF is mildly worse than in November 2020 where EF was noted to be 45%. Right-sided thoracentesis completed on 06/29 studies and cytology pending. By lights criteria, fluid is transudative, which would believe that the fluid accumulation is related to patient's heart failure and not malignant. Fluid studies pending. Continue Coreg, lisinopril, Lasix and supplemental O2 on discharge. 2) iron deficiency anemia Stable, hemoglobin currently 9.0. IV iron given on admission, transition to oral iron on discharge. 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 CT-A of chest with increased number of nodules in both lungs suggestive of progressive metastatic deposits. Thoracentesis with fluid studies as above. Patient to follow-up with [facility] oncology within the next 2 weeks. 4) CAD Status post CABG/PTCA/CANDICE. Follows with Dr. Vega. Continue aspirin, statin, carvedilol, lisinopril and Eliquis. 5) PAF Rate is controlled on carvedilol, patient is anticoagulated on Eliquis. Continue carvedilol and Eliquis. 6) HTN Stable, continue amlodipine, carvedilol, clonidine and lisinopril. 7) chronic COPD Do not believe this is contributing to #1 due to absence of wheezing on exam. Continue bronchodilators. 8) DM2 Hold home diabetic regimen, continue Accu-Cheks with sliding scale insulin and Lantus nightly. 9) hypothyroidism Continue Synthroid. Patient seen by Miguel Coles PA-C, under the supervision of Dr. Montelongo. Time spent on patient care: 20 minutes. Physical Exam Narrative Patient is a 70-year-old male comfortably resting in a chair, alert and orient x3. Patient reports that her shortness of breath is much improved from admission, denies development of any new symptoms overnight. Does not appear in acute distress. Const alert, oriented x3 and no apparent distress HEENT normocephalic, head/scalp atraumatic and hearing grossly normal bilaterally Eyes PERRL, EOMs intact bilaterally and conjunctivae normal Neck no lymphadenopathy, supple and no JVD Resp normal respiratory effort, no retractions and no use of accessory muscles Cardio regular rate, regular rhythm and no JVD GI normal to inspection, nondistended, normoactive bowel sounds Extremity normal to inspection Skin no rashes or lesions noted, no wounds and skin turgor normal Neuro CN's II-XII intact bilaterally Psych affect normal Weight / BMI Weight Weight: 278 lb 10.629 oz Body Mass Index (BMI) 43.6 ABG / Lab / Microbiology Data Result Diagrams: 07/01/21 05:08 07/01/21 05:08 Laboratory: Laboratory Results - last 24 hr 06/30/21 16:14: POC Glucose 197 H 06/30/21 21:45: POC Glucose 180 H 07/01/21 05:08: WBC 7.5, RBC 3.74 L, Hgb 9.0 L, Hct 31.5 L, MCV 84.2, MCH 24.1 L , MCHC 28.6 L D, RDW Std Deviation 50.4 H, RDW Coeff of Oliva 17.0 H, Plt Count 336, MPV 9.6, Immature Gran % (Auto) 0.500, Neut % (Auto) 70.9 H, Lymph % (Auto) 14.4 L, [place] % (Auto) 10.2 H, Eos % (Auto) 2.9, Baso % (Auto) 1.1 H, Absolute Neuts (auto) 5.3, Absolute Lymphs (auto) 1.08, Nucleated RBC % 0 07/01/21 05:08: Sodium 139, Potassium 3.5, Chloride 97 L, Carbon Dioxide 41.0 H, Anion Gap 1 L, BUN 21 H, Creatinine 0.70, Estim Creat Clear Calc 65.18, Est GFR (MDRD) Af Amer 144, Est GFR (MDRD) Non-Af 119, BUN/Creatinine Ratio 30.1 H, Glucose 173 H, Calcium 9.1 07/01/21 06:11: POC Glucose 170 H 07/01/21 11:17: POC Glucose 222 H Microbiology: Microbiology 06/29/21 13:00 Fluid - Thoracentesis Fluid Gram Stain - Final 06/29/21 13:00 Fluid - Thoracentesis Fluid Body Fluid Culture - Preliminary No growth-Final to follow 06/29/21 13:00 Fluid - Thoracentesis Fluid Anaerobic Culture - Preliminary No growth in 48 hours. 06/29/21 09:10 Mucosa - Nasopharyngeal Respiratory Panel (PCR) - Final 06/28/21 13:31 Nasal Secretion SARS-CoV-2 Antigen (Rapid) - Final Radiography Diagnostic Testing: Radiology Impression Chest X-Ray 07/01/21 09:50 IMPRESSION: Stable examination. Electronically Signed: Venkatesh Messer MD at 12:31 EST , D/C Instructions Discharge Diet: 6 Cup Fluid Restriction, 2000 mg Sodium Diet and Carb Control Diet Weight Bearing Status: Weight bearing as tolerated Call your doctor if you observe: Fever of 101 or Higher, Numbness or Tingling, Shortness of breath, Dizziness, Chest pain, Increased palpitations (irregular heartbeat) and Calf discomfort Please Follow Up With: Primary care provider When: Within the next two weeks. Meaningful Use Info Meaningful Use Diagnoses (Choose all that apply): CHF CHF ANDREA/ARB ordered at discharge?: Yes Documented LVEF (%): 40 Discharge Plan Admission Admit Date/Time: 06/28/21 16:28 Primary Reason for Your Visit: Shortness of Breath Attending Provider: Elise Montelongo Primary Care Provider: Dino Ward Consulting Providers: Waleska Santana NP Instructions Patient Instructions: Thoracentesis Dc Additional Instructions / Restrictions: Please call your Primary Doctor on Sunday07/04/2021 for an order for a basic metabolic profile to be done on Sunday or Sunday of next week with an increase in your lasix dose Discharge Orders/Prescriptions Prescriptions: New ferrous sulfate 325 mg (65 mg iron) tablet 325 mg PO BID Qty: 60 RF: 0 furosemide [Lasix] 40 mg tablet 40 mg PO BID Qty: 60 RF: 0 Continued aspirin 81 mg tablet,delayed release (DR/EC) 81 mg PO DAILY RF: 0 glimepiride [Amaryl] 4 mg tablet 4 mg PO DAILY RF: 0 metformin 1,000 mg tablet 1,000 mg PO BID RF: 0 nitroglycerin 0.4 mg tablet, sublingual 0.4 mg sublingual Q5M PRN (Reason: chest pain) Qty: 90 RF: 6 huemzvywgvi-svuvovaws-qaqohvqg 200-62.5-25 mcg blister with device 1 inh inhalation DAILY RF: 0 levothyroxine 50 mcg tablet 50 mcg PO DAILY RF: 0 albuterol sulfate 2.5 mg /3 mL (0.083 %) solution for nebulization 2.5 mg inhalation BID RF: 0 atorvastatin 40 mg tablet 40 mg PO DAILY RF: 0 clonidine HCl 0.2 mg tablet 0.2 mg PO DAILY RF: 0 lisinopril 40 mg tablet 40 mg PO DAILY RF: 0 Trulicity 0.75 mg/0.5 mL pen injector 0.75 mg subcut TU RF: 0 carvedilol 12.5 mg tablet 12.5 mg PO BID RF: 0 amlodipine 10 mg tablet 10 mg PO QDAY RF: 0 Eliquis 5 mg tablet 5 mg PO BID RF: 0 (DME) FreeStyle Belinda 2 Sensor Kit See Rx Instructions .ROUTE .MEDSUPPLY Qty: 2 RF: 0 Discontinued furosemide 40 mg tablet 40 mg PO DAILY RF: 0 Referrals / Follow Up: Lino Locke MD [NON-STAFF] - 07/06/21 10:30 am (call and tell them this is for a hospital f/u for sarcoma) Dino Ward MD [Primary Care Provider] - 07/08/21 10:50 am (call for lab Sunday and appt) Disposition Disposition (needs filled in before D/C Order can be placed): Home, Self Care Documented by User: Dr. Elise Montelongo DO 07/01/21 15:46 Providers Date of Admission: 06/28/21 Reason For Visit: RESPIRATORY FAILURE / CHF Medications at Discharge Home Medications aspirin 81 mg tablet,delayed release 81 mg PO DAILY 11/09/17 glimepiride 4 mg tablet 4 mg PO DAILY 11/09/17 metformin 1,000 mg tablet 1,000 mg PO BID 11/09/17 nitroglycerin 0.4 mg sublingual tablet 0.4 mg SUBLINGUAL Q5M PRN #90 tab 09/23/20 flash glucose sensor #2 ea 03/08/21 fluticasone fur. 200 mcg-umeclid 62.5 mcg-vilant 25 mcg inhalat.powder 1 inh INHALATION DAILY ea 06/20/21 levothyroxine 50 mcg tablet 50 mcg PO DAILY tab 06/20/21 Eliquis 5 mg PO BID 06/28/21 Trulicity 0.75 mg SUBCUT TU 06/28/21 albuterol sulfate 2.5 mg INHALATION BID 06/28/21 amlodipine 10 mg PO QDAY 06/28/21 atorvastatin 40 mg PO DAILY 06/28/21 carvedilol 12.5 mg PO BID 06/28/21 clonidine HCl 0.2 mg PO DAILY 06/28/21 lisinopril 40 mg PO DAILY 06/28/21 ferrous sulfate 325 mg PO BID #60 tab 07/01/21 furosemide [Lasix] 40 mg PO BID #60 tab 07/01/21 Hospital Course Procedures 2-D Echocardiogram and Thoracentesis Summary of Care Provided Minutes Spent on Discharge: 42 Hospital Course: This patient was seen in conjunction with JAVI Escudero. The following is a representation my independent history and physical examination. Please see below for addendum the above. Mr. Gonzalez is a 70-year-old white male who presented to the emergency department [facility] on 06/28/2021 with a chief complaint of shortness of breath. The patient reports that 3 weeks ago he was doing fairly well and was not requiring any oxygen however over the last 3 weeks he had had worsening shortness of breath and was placed on 5 L at home via nasal cannula. He report ed on admission that he saw his associate professor of music about 1 week ago and they increased his Lasix at that time and he reported that he had about 1 day where he felt improvement in his breathing however then he worsened. On admission he denied cough, or wheezing, fever, chills, chest pain and was not aware of any weight gain. He did come pain of some increased lower extremity edema. He reported that he recently was diagnosed with a right lower extremity sarcoma for which he underwent resection and has been undergoing treatment from plastic surgery over [facility]. On admission there was a concern that he had an acute exacerbation of his combined systolic and diastolic heart failure as he was noted to have an elevated BNP and a CTA of his chest that showed an increased number of nodules in both lungs that was suggestive of metastatic deposits as well as bilateral pleural effusions greater on the right than the left. He was started on IV Lasix with strict I's and O's and daily weights. An echocardiogram was performed and showed an EF of 40% with improved right ventricular systolic pressures reduced to 36 mmHg where it was previously in the 40s. He was found to have a bilateral atrial enlargement but no significant valvular abnormalities. His ventricle was mildly dilated. When compared with his previous echo it appears that it is fairly similar. With regards to his right pleural effusion there was concern that this may be a malignant pleural effusion especially with the nodular findings in his CT. A thoracentesis was performed on 06/29/2021 and 1300 cc was able to be withdrawn from the right lung. Lights criteria were performed and this was found to be a transudate of effusion. Cytology was pending at discharge. During his hospitalization with the sarcoma and the lung findings oncology was consulted. They will follow with him in the outpatient setting after discharge and likely perform a PET scan to further characterize these lung nodules. They noted that they would also follow-up on the pathology and cytology from his thoracentesis. I suspect given the fact that this is a transudate of effusion it is more likely related to his heart failure than malignancy. A repeat chest x-ray was performed on 07/01/2021 and no significant reaccumulation of fluid was noted on this chest x-ray. The patient's symptoms resolved dramatically after the effusion was removed and he was able to be discharged home on 4 L of oxygen with exertion and required no oxygen at rest. Prior to admission he was on 40 Lasix orally daily. We have increased his Lasix to 40 mg p.o. twice daily and asked that he call his primary care physician to obtain a basic metabolic profile to be done early next week. He was also noted to be anemic and iron studies were performed. His iron studies were consistent with iron deficiency and he was placed on vent of her x3 days. He was then discharged on oral iron twice daily. This was placed on his discharge paperwork and he voiced understanding upon conversation prior to discharge. He is to follow-up with Dr. Locke and call for an appointment as well as follow-up with his [facility] physician within the next 1 to 2 weeks. He was discharged home in stable condition on 07/01/2021. Discharge diagnoses: Acute on chronic hypoxic respiratory failure Large right pleural effusion-resolved status post thoracentesis Hypokalemia Multiple pulmonary nodules suspicious for metastatic disease Leiomyosarcoma Chronic diastolic heart failure Chronic normocytic anemia Iron deficiency CAD status post CABG/PCI Hypertension Hyperlipidemia COPD Stroke DM-2 Hypothyroidism PAF Physical Exam Const alert, oriented x3 and no apparent distress Constitutional Narrative: Morbidly obese white male sitting up in a chair at the bedside, states he is feeling much better, appears comfortable nontoxic General Appearance: cooperative, comfortable, well kempt and well developed Orientation / Consciousness: awake, oriented to person, oriented to place and oriented to time Exam Limitations: no limitations Nutritional Appearance: morbidly obese HEENT normocephalic, head/scalp atraumatic, hearing grossly normal bilaterally and moist oral mucous membranes HEENT Narrative: Mallampati 4, no thrush, dentition is fair Eyes PERRL, EOMs intact bilaterally and conjunctivae normal Eyes Narrative: No scleral icterus Neck no lymphadenopathy, supple and no JVD Neck Narrative: Trachea midline, neck is short and thick, no thyroid enlargement noted Resp normal respiratory effort, no retractions, no use of accessory muscles and clear to auscultation bilaterally Auscultation: diminished lung sounds; Negative for crackles, rales, rhonchi or wheezes Cardio regular rate, S1 normal heart sound, S2 normal heart sound, no murmurs, no rub, no gallops, no clicks and no JVD Cardio Narrative: Atrial fibrillation Peripheral Pulses: pulses 2+ throughout GI normal to inspection, nondistended, normoactive bowel sounds, soft to palpation, non-tender and non-distended GI Narrative: abdomen is protuberant Extremity normal to inspection and full ROM Extremity Narrative: Flap from previous right lower extremity surgery noted, wound is currently covered with a clean and dry dressing, no cyanosis or clubbi ng, bilateral lower extremity pitting edema noted-trace General Extremity: edema bilateral lower extremity Details: moderate Skin no rashes or lesions noted, no wounds and skin turgor normal Skin Narrative: Bilateral lower extremity venous stasis skin changes with right posterior leg superficial wounds. Lesions: no lesions Rashes: no rashes Trauma: no lacerations or abrasions Neuro oriented x3, CN's II-XII intact bilaterally, moves all extremities, no focal motor deficits and deep tendon reflexes 2+ bilaterally Sensorium / Orientation: awake and alert Speech: speech normal Psych mental status grossly normal and affect normal ABG / Lab / Microbiology Data Result Diagrams: 07/01/21 05:08 07/01/21 05:08 Discharge Plan Admission Admit Date/Time: 06/28/21 16:28 Primary Reason for Your Visit: Shortness of Breath Attending Provider: Elise Montelongo Primary Care Provider: Dino Ward Consulting Providers: Waleska Santana WAISTLINE JOINER Instructions Patient Instructions: Thoracentesis Dc Additional Instructions / Restrictions: Please call your Primary Doctor on Sunday07/04/2021 for an order for a basic metabolic profile to be done on Sunday or Sunday of next week with an increase in your lasix dose Discharge Orders/Prescriptions Prescriptions: New ferrous sulfate 325 mg (65 mg iron) tablet 325 mg PO BID Qty: 60 RF: 0 furosemide [Lasix] 40 mg tablet 40 mg PO BID Qty: 60 RF: 0 Continued aspirin 81 mg tablet,delayed release (DR/EC) 81 mg PO DAILY RF: 0 glimepiride [Amaryl] 4 mg tablet 4 mg PO DAILY RF: 0 metformin 1,000 mg tablet 1,000 mg PO BID RF: 0 nitroglycerin 0.4 mg tablet, sublingual 0.4 mg sublingual Q5M PRN (Reason: chest pain) Qty: 90 RF: 6 fcggqcmgfae-atagggzfr-cmpooqtv 200-62.5-25 mcg blister with device 1 inh inhalation DAILY RF: 0 levothyroxine 50 mcg tablet 50 mcg PO DAILY RF: 0 albuterol sulfate 2.5 mg /3 mL (0.083 %) solution for nebulization 2.5 mg inhalation BID RF: 0 atorvastatin 40 mg tablet 40 mg PO DAILY RF: 0 clonidine HCl 0.2 mg tablet 0.2 mg PO DAILY RF: 0 lisinopril 40 mg tablet 40 mg PO DAILY RF: 0 Trulicity 0.75 mg/0.5 mL pen injector 0.75 mg subcut TU RF: 0 carvedilol 12.5 mg tablet 12.5 mg PO BID RF: 0 amlodipine 10 mg tablet 10 mg PO QDAY RF: 0 Eliquis 5 mg tablet 5 mg PO BID RF: 0 (DME) FreeStyle Belinda 2 Sensor Kit See Rx Instructions .ROUTE .MEDSUPPLY Qty: 2 RF: 0 Discontinued furosemide 40 mg tablet 40 mg PO DAILY RF: 0 Referrals / Follow Up: Lino Locke MD [NON-STAFF] - 07/06/21 10:30 am (call and tell them this is for a hospital f/u for sarcoma) Dino Ward MD [Primary Care Provider] - 07/08/21 10:50 am (call for lab Sunday and appt) Disposition Disposition (needs filled in before D/C Order can be placed): Home, Self Care Charges/Coding Visit Charges Inpatient E&M: 74066 Disch Hosp
[2021-07-05 14:29] LABS: pH, Body Fluid 11254 7.5 (Not Estab.)
== END 2021-07-01 14:10 | disposition home or self-care (01) | DRG 291 ==
LOC: ED 15:39 → PCU 16:56
PROVIDERS: Internal Medicine; Nurse Practitioner Family; Physician Assistant; Admitting Provider Internal Medicine; Emergency Provider Emergency Medicine; PCP Family Medicine; Visit Provider Internal Medicine
DX: I11.0 Hypertensive heart disease with heart failure (principal); J96.21 Acute and chronic respiratory failure with hypoxia; I50.43 Acute on chronic combined systolic (congestive) and diastolic (congestive) heart failure; C49.21 Malignant neoplasm of connective and soft tissue of right lower limb, including hip; C78.01 Secondary malignant neoplasm of right lung; C78.02 Secondary malignant neoplasm of left lung; E11.40 Type 2 diabetes mellitus with diabetic neuropathy, unspecified; D50.9 Iron deficiency anemia, unspecified; I48.0 Paroxysmal atrial fibrillation; E27.9 Disorder of adrenal gland, unspecified; J44.9 Chronic obstructive pulmonary disease, unspecified; E03.9 Hypothyroidism, unspecified; I25.10 Atherosclerotic heart disease of native coronary artery without angina pectoris; I25.5 Ischemic cardiomyopathy; E78.5 Hyperlipidemia, unspecified; E87.6 Hypokalemia; I08.1 Rheumatic disorders of both mitral and tricuspid valves; I25.2 Old myocardial infarction; E66.9 Obesity, unspecified; Z68.39 Body mass index [BMI] 39.0-39.9, adult; Z98.61 Coronary angioplasty status; Z99.81 Dependence on supplemental oxygen; Z79.01 Long term (current) use of anticoagulants; Z79.82 Long term (current) use of aspirin; Z79.84 Long term (current) use of oral hypoglycemic drugs; Z86.73 Personal history of transient ischemic attack (TIA), and cerebral infarction without residual deficits; Z87.891 Personal history of nicotine dependence
CPT/HCPCS: 32555; 36415; 71045; 71046; 71275; 80048; 80053; 82607; 82728; 82746; 82945; 82962; 83540; 83550; 83605; 83615; 83735; 83880; 83986; 84156; 84157; 84443; 84484; 85025; 85610; 87070; 87075; 87205; 87426; 87633; 88108; 88305; 88313; 89050; 93005; 93306; 94640; 97110; 97162; 97166; 97530; 99285; J7050; Q9957; Q9967; A4216; C8929; J1940; J2916

== ENCOUNTER 2021-07-05 14:24 | Outpatient (CLI) | payer MEDICARE, OTHER, SELFPAY ==
[2021-07-05 18:16] LABS: Anion Gap 2 (5-15); BUN 22 mg/dL (7-18); BUN/Creat Ratio 28.4 RATIO (10-20); Calcium,Total 9.2 mg/dL (8.5-10.1); Chloride 98 mmol/L (98-107); Creatinine, Serum 0.78 mg/dL (0.70-1.30); EST Glomerular Filtration Rate 106 mL/min (>60); Est Glom Filt Rate - Afr Amer 128 mL/min (>60); Glucose 150 mg/dL (74-106); Potassium 4.5 mmol/L (3.5-5.1); Sodium Level 139 mmol/L (136-145)
== END 2021-07-05 23:59 | disposition home or self-care (01) ==
LOC: MFPLAB 14:37
PROVIDERS: PCP Family Medicine; Referring Provider Family Medicine; Visit Provider Family Medicine
DX: I10 Essential (primary) hypertension (principal)
CPT/HCPCS: 36415; 80048

== ENCOUNTER 2021-07-08 12:52 | Inpatient (IN) | payer MEDICARE, OTHER, SELFPAY ==
[2021-07-08] VITALS (10 sets, daily range): BP systolic 134–157; BP diastolic 64–84; PULSE 56–84; RESP 20–22; TEMP 36.2–36.9; O2SAT 90–97; BMI 45.1; BMI 43.9
--- NOTE | 2021-07-08 13:50 | RAD_ITS ---
STUDY: X-RAY CHEST REASON FOR EXAM: Male, 70 years old. Dyspnea and chest pain. TECHNIQUE: Single AP portable view of the chest. COMPARISON: Comparison is made with prior study 07/01/2021. FINDINGS: EKG electrodes are seen. Progressive increased linear markings in the right and left midlungs as well as at the lung bases suggestive of early infiltrates and/or atelectasis. Stable left lower lobe nodular density. Blunting of both cause phrenic angles slightly worse on the right side. Mild degree of vascular congestion. Sternal cerclage wires and vascular clips are present from a prior sternotomy and coronary artery bypass graft procedure (CABG). Cardiomegaly. Normal mediastinum and tasia. Normal visualized pulmonary arteries. Normal visualized aortic arch and descending thoracic aorta. Normal visualized thoracic spine. Normal visualized ribs, clavicles, and shoulders. There is no demonstrated abnormality of the visualized soft tissue structures of the upper abdomen. RAD/Chest 1 View (Portable) IMPRESSION: Blunting of both costophrenic angles more prominent on the right side with progressive increased markings in both lower lobes as described as well as the major fissures bilaterally. Mild degree of CHF. Stable nodular density in the left lower lobe. Electronically Signed: Venkatesh Messer MD at 14:46 EST ,
--- NOTE | 2021-07-08 13:51 | EKG12_ITS ---
Test Reason : SOB Blood Pressure : / mmHG Vent. Rate : 073 BPM Atrial Rate : 033 BPM P-R Int : 000 ms QRS Dur : 124 ms QT Int : 380 ms P-R-T Axes : 000 074 -72 degrees QTc Int : [address] & T wave abnormality, consider inferolateral ischemia Abnormal ECG Confirmed by JIA GONGORA, THERESA ([id number]), art editor ANDERSON SCHAEFFER ([id number]) on 07/11/2021 12:05:42 PM Referred By: MARK Confirmed By:THERESA RO MD
[2021-07-08 13:59] LABS: Absolute Lymphocyte Count 0.83 X10^3/uL (0.83-4.51); Absolute Neutrophil Count 5.3 X10^3/uL (2.0-7.7); Basophil# 0.08 X10^3/uL; Basophil% 1.2 % (0-1); Eosinophil# 0.08 X10^3/uL; Eosinophils% 1.2 % (0-5); Lymphocyte # 0.83 X10^3/ul (0.83-4.51); Lymphocyte % 12.2 % (19-41); Mean Corp Hgb Conc 27.8 g/dL (32-36); Mean Corpuscular Hgb 24.9 pg (27.0-32.0); Mean Corpuscular Volume 89.6 fL (80-94); Mean Platelet Vol. 10.1 fl (6.2-12.0); Monocyte# 0.43 X10^3/uL; Monocyte% 6.3 % (0-10); NRBC Flagged by Analyzer 0 % (0-5); Neutrophil # 5.34 X10^3/uL (2.7-7.7); Neutrophil % 78.8 % (47-70); Platelet Count 287 K/mm3 (150-450); RBC Distribution Width SD 61.6 fl (35.1-43.9); Red Blood Count 4.02 M/mm3 (4.6-6.2); White Blood Count 6.8 K/mm3 (4.4-11.0)
[2021-07-08 14:11] LABS: ALB/GLOB Ratio 0.8 RATIO (0.9-2.4); AST(SGOT) 13 U/L (15-37); Alanine Aminotransfer ALT/SGPT 17 U/L (16-61); Albumin, Serum 3.2 g/dL (3.2-5.0); Alkaline Phosphatase 81 U/L (45-117); Anion Gap 3 (5-15); BUN 23 mg/dL (7-18); BUN/Creat Ratio 28.8 RATIO (10-20); Calcium,Total 9.1 mg/dL (8.5-10.1); Chloride 96 mmol/L (98-107); EST Glomerular Filtration Rate 102 mL/min (>60); Est Glom Filt Rate - Afr Amer 123 mL/min (>60); Estimated Creatinine Clearance 78.64 ml/min; Globulin 4.2 g/dL (2.2-4.2); Glucose 166 mg/dL (74-106); Potassium 4.7 mmol/L (3.5-5.1); Protein, Total 7.4 g/dL (6.4-8.2); Sodium Level 138 mmol/L (136-145); Troponin-I HS 23 pg/mL (3.0-78.0)
[2021-07-08] MEDS: Ipratropium/Albuterol Sulfate 3 ML AMPUL.NEB INHALATION ×2 (14:11→19:53)
[2021-07-08 14:12] LABS: International Normalized Ratio 1.5; Prothrombin Time (Protime)PT. 17.3 SECONDS (11.7-14.9)
--- NOTE | 2021-07-08 14:45 | CASEMGMT ---
MONTY LEGGETT note: MONTY LEGGETT made aware per Dr. Michele that patient's requesting palliative or hospice referral. MONTY CM to patient's room to speak with patient and . MONTY LEGGETT introduced self and role at [facility]. Patient and Rolanda voice understanding and are agreeable to speaking with MONTY LEGGETT. Patient's reports patient has been confused during the night. Per , grandson found patient at the bottom of the basement steps at 0200 today and incontinent of stool. Patient reports he was attempting to get to the bathroom for bowel movement but somehow ended up in the basement. states she doesn't understand how patient made it down the steps, as he has much difficulty ambulating and requires frequent rest periods even with short distances within the home. Per , patient crawled on his hands and knees back up the steps with and grandson close by. Patient admits to feeling confused within his home he has lived in for many years and is very familiar with layout. Patient reports at 0600 today, he thought he was watching television but later realized it may have just been the window in the home, though he is still unable to decide with certainty. reports patient was too weak to attend scheduled appointment with surgeon today, I couldn't even get him there. Patient's states, I need sleep, I'm exhausted and expresses concerns with patient safety. MONTY LEGGETT discussed SNF placement with patient and but patient adamantly refuses at this time. Patient previously active with [facility] for SN but states patient no longer has SN through [facility] but unsure of why. reports that patient has had one home visit by a therapist since recent hospital discharge, thought to be with [facility]. MONTY LEGGETT placed call to [facility] to inquire about active services. [facility] staff member reports patient was discharged from [facility] on 06/28 and was not visited by PT from their company. Patient's denies other [facility]. Patient's states, We need palliative, or hospice, or something! We need help in the home. Patient and informed that MONTY LEGGETT could make palliative referral but palliative would not be a service to provide overnight care in the home. agreeable to speaking with SW to further discuss hospice care. MONTY LEGGETT spoke with WOLFGANG Cervantes regarding patient and 's wishes. Helen will see patient and in ER room. -MONTY Gibbs CM
--- NOTE | 2021-07-08 15:56 | PCM.HP.STD ---
HPI - General General Date of Admission: 07/08/21 Date of Service: 07/08/21 Chief Complaint: Worsening dyspnea, wheezing. HPI Narrative The patient is a 70 y/o M w/ PMHx: Chronic Systolic CHF, HTN, HLD, Chronic anemia/Fe deficiency anemia, Leiomyosarcoma s/p R thigh tumor excision 02/[address] De Leon w/ follow-up skin graft w/ ongoing small R thigh ulcer w/ suspected progressive metastatic disease to lungs following w/ [facility]c, CAD s/p CABG and PCI, PAF on eliquis, Chronic COPD, Hypothyroidism, Diabetes mellitus type II, recently discharged 07/01/21 with acute on chronic respiratory failure, acute anemia/Fe deficiency anemia with IV Fe supplementation, New noted pulmonary nodules suspicious for metatstatic disease as noted with pleural effusions, treated for acute on chronic HFrEF, ischemic cardiomyopathy w/ R sided 06/29/21 thoracentesis with suspected transudative status based on lights criteria with negative cytology on the fluid with EF decrease on ECHO from 45% 11/2020-->06/28/21 mildly dilated LV, mild segmental systolic dysfunction, EF of 40%, RVSP of 36 mmHg and indeterminate diastolic dysfunction who now he presents to the [facility] ED on 07/08/21 with 2 to 3 days of progressively worsening dyspnea, ongoing intermittent wheezing, worse with any exertion with no fevers or chills nor any productive cough or change in cough from prior but not improving prompting ED evaluation. Work-up in the ED included T 97.5, heart rate 56, BP 134/64, respiratory rate 20, initially to be 92% on 6 L nasal cannula improved to 97% on 5.5 L and most recently noted prior to this on 07/01/2021 to be on 4 L nasal cannula, CBC with WC 6.8, hemoglobin 10, platelet 287 without marked shift, coags with PT 17.3, INR 1.5, CMP with chloride 96, convex at 39, BUN/creatinine 23/0.80, glucose 166, not marked appearing hepatic profile, troponin 23, chest x-ray with blunting of both costophrenic angles more prominent the right side with progressive increased markings in both lower lobes as well as major fissures bilaterally with a mild degree of CHF, EKG with rate controlled atrial fibrillation, stable nodular density left lower lobe, rapid Covid antigen negative. In the ED patient ministered DuoNeb therapy. [facility], [facility] Medical History Anemia, iron deficiency Atherosclerosis of coronary artery bypass graft without angina pectoris Atrial fibrillation Bilateral carotid artery stenosis Cancer COPD (chronic obstructive pulmonary disease) Coronary artery disease CVA (cerebral vascular accident) Diabetes Dyspnea on exertion Essential hypertension Fatigue Former smoker History of myocardial infarction Hyperlipidemia Hypertension Hypothyroidism Ischemic cardiomyopathy Lower back pain Myocardial infarct Neuropathy Normocytic anemia Obesity On home oxygen therapy Paroxysmal atrial fibrillation Type 2 diabetes mellitus Home Medications aspirin 81 mg tablet,delayed release 81 mg PO DAILY 11/09/17 [History Last Taken 07/08/21] glimepiride 4 mg tablet 4 mg PO DAILY 11/09/17 [History Last Taken 07/08/21] metformin 1,000 mg tablet 1,000 mg PO BID 11/09/17 [History Last Taken 07/08/21] nitroglycerin 0.4 mg sublingual tablet 0.4 mg SUBLINGUAL Q5M PRN #90 tab 09/23/20 [Rx Last Taken Unknown] flash glucose sensor #2 ea 03/08/21 [Rx Last Taken Unknown] fluticasone fur. 200 mcg-umeclid 62.5 mcg-vilant 25 mcg inhalat.powder 1 inh INHALATION DAILY ea 06/20/21 [History Last Taken 07/07/21] levothyroxine 50 mcg tablet 50 mcg PO DAILY tab 06/20/21 [History Last Taken 07/08/21] Eliquis 5 mg PO BID 06/28/21 [History Last Taken 07/08/21] Trulicity 0.75 mg SUBCUT TU 06/28/21 [History Last Taken 06/28/21] albuterol sulfate 2.5 mg INHALATION BID 06/28/21 [History Last Taken 07/07/21] amlodipine 10 mg PO QDAY 06/28/21 [History Last Taken 07/08/21] atorvastatin 40 mg PO DAILY 06/28/21 [History Last Taken 07/08/21] carvedilol 12.5 mg PO BID 06/28/21 [History Last Taken 07/08/21] clonidine HCl 0.2 mg PO DAILY 06/28/21 [History Last Taken 07/08/21] lisinopril 40 mg PO DAILY 06/28/21 [History Last Taken 07/08/21] ferrous sulfate 325 mg PO BID #60 tab 07/01/21 [Rx Last Taken 07/08/21] furosemide [Lasix] 40 mg PO BID #60 tab 07/01/21 [Rx Last Taken 07/08/21] losartan 100 mg PO DAILY 07/08/21 [History Last Taken 07/08/21] Allergy/AdvReac Type Severity Reaction Status Date / Time No Known Allergies Allergy Verified 07/08/21 12:56 Family History Father CAD (coronary artery disease) Hx of CABG, Onset Age: 56 Mother Cancer Surgical History Aortocoronary bypass status (~07/12/00) History of coronary artery stent placement History of detached retina repair Leiomyosarcoma of lower extremity Postsurgical percutaneous transluminal coronary angioplasty (PTCA) status Presence of stent in coronary artery (~05/22/12) Social History (Updated 07/08/21 @ 16:[address] Gill Booker MD) household members: spouse Smoking Status: Former smoker how long ago did patient quit smokin years ago alcohol intake: never substance use type: does not use caffeine: Yes Type: coffee Number of servings: 2 and tea Number of servings: 6 ROS ROS Narrative Admission Review of Systems: CONSTITUTIONAL: No weight loss, fever, chills, + weakness or fatigue. HEENT: Eyes: No visual loss, blurred vision, double vision or yellow sclerae. Ears, Nose, Throat: No hearing loss, sneezing, congestion, runny nose or sore throat. SKIN: No rash or itching, lesions, wounds. CARDIOVASCULAR: + Edema, chronic unchanged orthopnea, No chest pain, chest pressure or chest discomfort, palpitations, syncopal events. RESPIRATORY: + shortness of breath, chronic unchanged cough, wheezing, no marked sputum, hemoptysis. GASTROINTESTINAL: No anorexia, nausea, vomiting or diarrhea, abdominal pain, melena, BRBPR. GENITOURINARY: No dysuria, frequency, urgency or retention. NEUROLOGICAL: No headache, dizziness, syncope, paralysis, ataxia, numbness or tingling in the extremities, focal weakness, change in bowel or bladder control, seizure. MUSCULOSKELETAL: + muscle, back pain, joint pain or stiffness. HEMATOLOGIC: + anemia, bleeding or bruising. LYMPHATICS: No enlarged nodes. No history of splenectomy. PSYCHIATRIC: No history of depression or anxiety. ENDOCRINOLOGIC: + reports of sweating, cold or heat intolerance. No polyuria or polydipsia. ALLERGIES: + history of asthma, hives, eczema or rhinitis. Vital Signs Vital Signs Vital Signs: 07/08/21 12:52 07/08/21 13:37 07/08/21 14:12 Temperature 97.5 F L Temperature Source Temporal Pulse Rate 56 L 70 Respiratory Rate 20 H 21 H Respiratory Effort Short of Breath Respiratory Depth Shallow Blood Pressure 134/64 H Blood Pressure Mean 87 Pulse Ox 92 97 Oxygen Delivery Method Nasal Cannula Nasal Cannula Nasal Cannula Oxygen Flow Rate (L/min) 6 6 5.5 Weight Weight: 280 lb Body Mass Index (BMI) 45.1 Physical Exam Narrative Physical Examination: General: Awake, alert, oriented x 3 and cooperative, seated upright in the ED bed, fatigued, mildly increased respiratory rate but no distress. Skin: Normal color, normal turgor, no icterus, no cyanosis except bilateral lower extremity venous stasis skin changes and chronic ulcer with no drainage or perierythema. HEENT: AT/NC, EOMI, PERRLA, MMM, no carotid bruits, unable to discern JVD secondary to very thickened neck. Lungs: Extremely diminished, tight, greater bases, end expiratory wheezing, mildly increased respiratory rate but no distress, very minimal rales, no rhonchi. Heart: Irregular, rate controlled; no gallop, rub audible. Abdomen: Soft, morbidly obese, NTTP, difficult to discern distention given habitus, distant normal BS, unable to discern HSM secondary to habitus. Extremities: No cyanosis, no clubbing, significant pedal to proximal swain greater than 2+ pitting edema, see skin. Neurological: Patient awake, alert, oriented as noted, cognitive function intact; pupils equally reactive to light and accommodation, cranial nerves II-XII grossly normal, moving all 4 extremities, no focal deficits, strength severely global decreased secondary to underlying comorbidities and acute presentation. Psychiatric: Affect appears fatigued otherwise normal, no acute evidence of depressive or anxiety feelings. Results Lab / Micro Data Result Diagrams: 07/08/21 13:15 07/08/21 13:15 Labs: Laboratory Results - last 24 hr 07/08/21 13:15: WBC 6.8, RBC 4.02 L, Hgb 10.0 L, Hct 36.0 L, MCV 89.6, MCH 24.9 L, MCHC 27.8 L, RDW Std Deviation 61.6 H, RDW Coeff of Oliva 19.0 H, Plt Count 287, MPV 10.1, Immature Gran % (Auto) 0.300, Neut % (Auto) 78.8 H, Lymph % (Auto) 12.2 L, [place] % (Auto) 6.3, Eos % (Auto) 1.2, Baso % (Auto) 1.2 H, Absolute Neuts (auto) 5.3, Absolute Lymphs (auto) 0.83, Nucleated RBC % 0 07/08/21 13:15: PT 17.3 H, INR 1.5, APTT 32.0 07/08/21 13:15: Sodium 138, Potassium 4.7, Chloride 96 L, Carbon Dioxide 39.0 H, Anion Gap 3 L, BUN 23 H, Creatinine 0.80, Estim Creat Clear Calc 78.64, Est GFR (MDRD) Af Amer 123, Est GFR (MDRD) Non-Af 102, BUN/Creatinine Ratio 28.8 H, Glucose 166 H, Calcium 9.1, Total Bilirubin 0.60, AST 13 L, ALT 17, Alkaline Phosphatase 81, Troponin I High Sens 23, Total Protein 7.4, Albumin 3.2, Globulin 4.2, Albumin/Globulin Ratio 0.8 L Micro: Microbiology 07/08/21 14:32 Nasal Secretion SARS-CoV-2 Antigen (Rapid) - Final Radiology Impression Chest X-Ray 07/08/21 13:50 IMPRESSION: Blunting of both costophrenic angles more prominent on the right side with progressive increased markings in both lower lobes as described as well as the major fissures bilaterally. Mild degree of CHF. Stable nodular density in the left lower lobe. Electronically Signed: Venkatesh Messer MD at 14:46 EST , Assessment & Plan Assessment/Plan (1) Acute and chronic respiratory failure with hypoxia: PLAN: The patient is a 70 y/o M w/ PMHx: Chronic Systolic CHF, HTN, HLD, Chronic anemia/Fe deficiency anemia, Leiomyosarcoma s/p R thigh tumor excision 02/[address] De Leon w/ follow-up skin graft w/ ongoing small R thigh ulcer w/ suspected progressive metastatic disease to lungs following w/ [facility], CAD s/p CABG and PCI, PAF on eliquis, Chronic COPD, Hypothyroidism, Diabetes mellitus type II, recently discharged 07/01/21 who now he presents to the [facility] ED on 07/08/21 with 2 to 3 days of progressively worsening dyspnea, ongoing intermittent wheezing, worse with any exertion with no fevers or chills nor any productive cough or change in cough from prior but not improving prompting ED evaluation. #1. Acute on chronic hypoxic respiratory failure, multifactorial, recent CHF exacerbation, right thigh sarcoma with suspected metastatic pulmonary disease unconfirmed in addition to Acute on chronic COPD exacerbation: Will admit to PCU given recent acute cardiac issues, maintain on oxygen with wean as tolerated to home oxygen supplementation, continue ATC duonebs, PRN albuterol, IV methylprednisolone, HOB, IS parameters, requested sputum cx, requested procalcitonin, monitor for potential worsening overload with consideration pulse dose lasix if appropriate. #2. Chronic Systolic CHF: Recent discharge 07/01/21 following treatment and evaluation for CHF exacerbation with concurrent noted likely pulmonary metastatic lesions at that time, s/p thoracentesis with negative cytology, likely secondary to his CHF, will continue patient aspirin, statin, Coreg, lisinopril, Lasix regimen as noted, recent echocardiogram with EF decrease from 45 to 40%, mildly dilated LV, mild segmental systolic dysfunction, RVSP 36 mmHg with indeterminate diastolic dysfunction. #3. 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 Locke follow-up patient noted interest in chemotherapy but declined CT guided Bx to confirm etiology of the lung nodules. Family requested Palliative consultation which will be requested. #4. RLE Chronic Ulcer: Patient status post tumor resection with grafting, small remaining ulcer, following with Plastic surgery outpatient, will continue wound RN evaluation while in patient with dressing changes. #5. Chronic anemia/iron deficiency anemia: Admission hemoglobin 10, similar to baseline, will continue iron supplementation. #6. PAF: We will continue patient home Coreg and Eliquis regimen. #7. CAD: Status post CABG and PCI, will continue patient home Eliquis, statin, Coreg, lisinopril regimen. #8. Hypertension: Continue home regimen including lisinopril, Lasix, clonidine, Coreg, amlodipine with hold parameters as needed, PRN hydralazine. #9. Hyperlipidemia: We will continue patient on statin therapy. #10. Diabetes mellitus type II: Hold oral home regimen, ADA diet, accu checks w/ ISS. #11. Hypothyroidism: Continue home synthroid regimen. #12. DVT prophylaxis: SCDs, will continue patient home Eliquis regimen. #13. CODE status: Patient does not have healthcare power of commercial attorney nor living will in place. Given significant comorbidities and disease as well as current acute presentation, discussed CODE status at length including difference between FULL code, DNR-CCA and DNR-CC status. Following discussions about the differences in these status, requested DNR-CCA, no intubation. Notes his would make decisions for him if he could not. Advanced Care Planning Face to Face Time: 16 minutes. Charges/Coding Visit Charges Inpatient E&M: 40033 Init Hosp L3 Procedures Hospitalists Procedures: 41283 Advncd Care Plan 30 Min
--- NOTE | 2021-07-08 16:15 | CASEMGMT ---
Social Work had asked for information on palliative care and hospice, had also made indication of concern caring for pt at home. SW met w/pt and in room, SW familiar with them from pt's last admission. Pt and explained that pt was confused yesterday, had gone in the basement. He was looking for the bathroom, thought he was at his cousin's home. Pt was able to tell SW exactly what he was thinking, but he doesn't understand why he was in the basement looking for the bathroom. is concerned for pt's safety, is worried he could have fallen down the steps. SW offered support to both of them for the difficult situation they are in at present. states she is going to put a lock on the basement door. SW educated them both on palliative care and hospice, gave brochures on both. states their daughter just on hospice in May. Support offered. would like a palliative referral made. SW spoke w/them about their plan at discharge. Pt states, I am always going to say I want to go home. had indicated at one point pt had to crawl back up the stairs. SW spoke w/them both about pt going to rehab for a short time. is in agreement with this, but pt continues to state he wants to go home. states it is up to the pt. SW did point out to both of them however if pt is having a difficult time walking, is not going to be able to assist pt. SW explained we may have therapy to come in then to make sure he can walk today. Pt states he is not getting up today. SW explained does not know if pt is going to be admitted today or not, will ask physician. If pt is admitted, SW/CM can follow up once pt has therapy. As we were talking, [facility] called and said they were coming Sunday to install a ramp. was tearful with getting this news, as this is something they have been trying to get for a while. SW spoke w/physician, it is anticipated pt will be admitted. SW/CM to follow up for what may be needed at discharge, home health vs. SNF. Also, CM in ED will make palliative referral. SW/CM will continue to follow. PANCHO Gloria
--- NOTE | 2021-07-08 16:49 | ED.VIS.DYS ---
HPI History of Present Illness Chief Complaint: Shortness of Breath Informant: patient Onset/Context/Timing Onset: Days Context: gradual Timing: Continuous Quality: Positive for Dyspnea on exertion Worsened by: Exertion Relieved by: Oxygen Associated Symptoms subjective and chills; Negative for cough, rhinorrhea, ear pain, fever, sore throat, sweats, clear sputum, white sputum, yellow sputum or green sputum Chest Pain: Positive for None Narrative Narrative: Patient presents with shortness of breath that has been getting worse over the past few days. Patient was admitted to the hospital here recently. Patient has history of COPD.. Patient admits to some subjective chills. Patient states his breathing is worse with any exertion. Patient has been getting confused at times. This seems to be worse at night. states that she is having difficulty caring for him at home. would like to get him established with hospice or palliative care. Patient denies any chest pain. Patient denies any cough. PE Risk Factors: Positive for Cancer [facility] Medical History Anemia, iron deficiency Atherosclerosis of coronary artery bypass graft without angina pectoris Atrial fibrillation Bilateral carotid artery stenosis Cancer COPD (chronic obstructive pulmonary disease) Coronary artery disease CVA (cerebral vascular accident) Diabetes Dyspnea on exertion Essential hypertension Fatigue Former smoker History of myocardial infarction Hyperlipidemia Hypertension Hypothyroidism Ischemic cardiomyopathy Lower back pain Myocardial infarct Neuropathy Normocytic anemia Obesity On home oxygen therapy Paroxysmal atrial fibrillation Type 2 diabetes mellitus Home Medications aspirin 81 mg tablet,delayed release 81 mg PO DAILY 11/09/17 [History Last Taken 07/08/21] glimepiride 4 mg tablet 4 mg PO DAILY 11/09/17 [History Last Taken 07/08/21] metformin 1,000 mg tablet 1,000 mg PO BID 11/09/17 [History Last Taken 07/08/21] nitroglycerin 0.4 mg sublingual tablet 0.4 mg SUBLINGUAL Q5M PRN #90 tab 09/23/20 [Rx Last Taken Unknown] flash glucose sensor #2 ea 03/08/21 [Rx Last Taken Unknown] fluticasone fur. 200 mcg-umeclid 62.5 mcg-vilant 25 mcg inhalat.powder 1 inh INHALATION DAILY ea 06/20/21 [History Last Taken 07/07/21] levothyroxine 50 mcg tablet 50 mcg PO DAILY tab 06/20/21 [History Last Taken 07/08/21] Eliquis 5 mg PO BID 06/28/21 [History Last Taken 07/08/21] Trulicity 0.75 mg SUBCUT TU 06/28/21 [History Last Taken 06/28/21] albuterol sulfate 2.5 mg INHALATION BID 06/28/21 [History Last Taken 07/07/21] amlodipine 10 mg PO QDAY 06/28/21 [History Last Taken 07/08/21] atorvastatin 40 mg PO DAILY 06/28/21 [History Last Taken 07/08/21] carvedilol 12.5 mg PO BID 06/28/21 [History Last Taken 07/08/21] clonidine HCl 0.2 mg PO DAILY 06/28/21 [History Last Taken 07/08/21] lisinopril 40 mg PO DAILY 06/28/21 [History Last Taken 07/08/21] ferrous sulfate 325 mg PO BID #60 tab 07/01/21 [Rx Last Taken 07/08/21] furosemide [Lasix] 40 mg PO BID #60 tab 07/01/21 [Rx Last Taken 07/08/21] losartan 100 mg PO DAILY 07/08/21 [History Last Taken 07/08/21] Allergy/AdvReac Type Severity Reaction Status Date / Time No Known Allergies Allergy Verified 07/08/21 12:56 Family History Father CAD (coronary artery disease) Hx of CABG, Onset Age: 56 Mother Cancer Surgical History Aortocoronary bypass status (~07/12/00) History of coronary artery stent placement History of detached retina repair Leiomyosarcoma of lower extremity Postsurgical percutaneous transluminal coronary angioplasty (PTCA) status Presence of stent in coronary artery (~05/22/12) Social History household members: spouse Smoking Status: Former smoker how long ago did patient quit smokin years ago alcohol intake: never substance use type: does not use caffeine: Yes Type: coffee Number of servings: 2 and tea Number of servings: 6 ROS ROS ED Constitutional Constitutional ED: Reports chills; Denies fever(s) Eyes Eyes: Denies blurry vision or change in vision ENT ENT ED: Denies rhinorrhea or sore throat Cardiovascular Cardiovascular: Denies chest pain or palpitations Respiratory/Chest Respiratory/Chest: Reports dyspnea; Denies cough Gastrointestinal Gastrointestinal: Denies nausea or vomiting Genitourinary Genitourinary ED: Denies dysuria or hematuria Musculoskeletal Musculoskeletal: Denies back pain or neck pain Integumentary Denies abscess or rash Neurologic Neurologic: Denies headache(s) or weakness Allergic/Immunologic Allergic/Immunologic ED: Denies mouth swelling or urticaria EXAM Physical Exam Const Vital Signs: 07/08/21 12:52 07/08/21 13:37 07/08/21 14:12 Temperature 97.5 F L Temperature Source Temporal Pulse Rate 56 L 70 Respiratory Rate 20 H 21 H Respiratory Effort Short of Breath Respiratory Depth Shallow Blood Pressure 134/64 H Blood Pressure Mean 87 Pulse Ox 92 97 Oxygen Delivery Method Nasal Cannula Nasal Cannula Nasal Cannula Oxygen Flow Rate (L/min) 6 6 5.5 07/08/21 16:02 Temperature Temperature Source Pulse Rate Respiratory Rate Respiratory Effort Respiratory Depth Blood Pressure Blood Pressure Mean Pulse Ox 93 Oxygen Delivery Method Nasal Cannula Oxygen Flow Rate (L/min) 6 Positive well nourished, well developed and obese General Appearance ED: well developed and NAD Nutritional Appearance: obese HEENT Reports moist mucous membranes Eyes PERRL Neck supple and no JVD Resp normal respiratory effort Auscultation: wheezes Cardio regular rate Rhythm: abnormal rhythm irregularly irregular GI non-tender and non-distended Auscultation: normoactive bowel sounds Palpation: soft Neuro oriented x3, CN's II-XII intact bilaterally and no sensory deficits noted Sensorium / Orientation: alert Motor Exam: strength 5/5 throughout Psych mental status grossly normal MDM MDM MDM Narrative Medical decision making narrative: EKG was obtained. On my interpretation, it shows atrial fibrillation with a rate of 73. There are nonspecific ST-T wave changes. QRS interval and QTc intervals are normal. [place] is normal. Chest x-ray was obtained. There is 1 view. On my interpretation, there is blunting of both costophrenic angles. There are increased markings in the lower lobes bilaterally. There is mild degree of CHF. This was interpreted by the radiologist and reviewed by myself. CBC shows a hemoglobin of 10.0 and hematocrit of 36.0. PT was 17.3 INR was 1.5. PTT was normal. Comprehensive metabolic profile was obtained and was essentially within normal limits. High-sensitivity troponin was normal at 23. Patient was given a DuoNeb aerosol here. Patient was given a dose of Solu-Medrol. Case was discussed with the hospitalist. She will admit the patient to her service. Patient and family understood and were agreeable with the plan. All questions were answered. Lab Data Attestation: I reviewed the patient's lab results. Labs: Laboratory Results - last 24 hr 07/08/21 07/08/21 07/08/21 13:15 13:15 13:15 WBC 6.8 RBC 4.02 L Hgb 10.0 L Hct 36.0 L MCV 89.6 MCH 24.9 L MCHC 27.8 L RDW Std Deviation 61.6 H RDW Coeff of Oliva 19.0 H Plt Count 287 MPV 10.1 Immature Gran % (Auto) 0.300 Neut % (Auto) 78.8 H Lymph % (Auto) 12.2 L Clarke % (Auto) 6.3 Eos % (Auto) 1.2 Baso % (Auto) 1.2 H Absolute Neuts (auto) 5.3 Absolute Lymphs (auto) 0.83 Nucleated RBC % 0 PT 17.3 H INR 1.5 APTT 32.0 Sodium 138 Potassium 4.7 Chloride 96 L Carbon Dioxide 39.0 H Anion Gap 3 L BUN 23 H Creatinine 0.80 Estim Creat Clear Calc 78.64 Est GFR (MDRD) Af Amer 123 Est GFR (MDRD) Non-Af 102 BUN/Creatinine Ratio 28.8 H Glucose 166 H Calcium 9.1 Magnesium Total Bilirubin 0.60 AST 13 L ALT 17 Alkaline Phosphatase 81 Troponin I High Sens 23 Total Protein 7.4 Albumin 3.2 Globulin 4.2 Albumin/Globulin Ratio 0.8 L Procalcitonin 07/08/21 07/08/21 13:15 13:15 WBC RBC Hgb Hct MCV MCH MCHC RDW Std Deviation RDW Coeff of Oliva Plt Count MPV Immature Gran % (Auto) Neut % (Auto) Lymph % (Auto) Clarke % (Auto) Eos % (Auto) Baso % (Auto) Absolute Neuts (auto) Absolute Lymphs (auto) Nucleated RBC % PT INR APTT Sodium Potassium Chloride Carbon Dioxide Anion Gap BUN Creatinine Estim Creat Clear Calc Est GFR (MDRD) Af Amer Est GFR (MDRD) Non-Af BUN/Creatinine Ratio Glucose Calcium Magnesium 1.7 Total Bilirubin AST ALT Alkaline Phosphatase Troponin I High Sens Total Protein Albumin Globulin Albumin/Globulin Ratio Procalcitonin 0.08 Radiography Chest X-Ray - ED: 1 View, Read by ED Physician, Read by Radiologist, Chronic Changes, CHF, Right Effusion and Left Effusion Diagnostic Testing: Clinical Impression(s) from Imaging Studies Chest X-Ray 07/08/21 13:50 IMPRESSION: Blunting of both costophrenic angles more prominent on the right side with progressive increased markings in both lower lobes as described as well as the major fissures bilaterally. Mild degree of CHF. Stable nodular density in the left lower lobe. Electronically Signed: Venkatesh Messer MD at 14:46 EST , EKG Initial EKG: Attestation: I personally reviewed and interpreted this EKG as follows: Interpretation: Atrial Fibrillation (73) and Non-Specific ST Changes Treatment and Re-Evaluation Vital Sign Attestation:: Vital signs were reviewed prior to admission. They are stable. Discharge Plan Dx/Rx/DC Orders Clinical Impression: Acute exacerbation of chronic obstructive pulmonary disease Disposition Disposition: Acute Care Hospital [facility] Discharge Date/Time: 07/08/21 17:41
[2021-07-08] MEDS: MethylPREDNISolone 125 MG/2 ML Vial 80 MG IV (17:09)
[2021-07-08 17:35] LABS: Magnesium 1.7 mg/dL (1.6-2.6)
--- NOTE | 2021-07-08 17:45 | CASEMGMT ---
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 Patient admitted to [facility] 06/28/2021 for respiratory failure and CHF. Prior to this admission, patient reports he had oxygen available at home but did not need to use it. Likely pulmonary metastatic lesions noted during admission and patient was discharged home with new home oxygen orders to include portability (patient previously declined portable tanks, per [facility]). Oxygen ordered at 2LPM at rest and 4LPM with ambulation. Patient instructed to follow-up with Dr. Locke on 07/[address] Ward on 07/08. Per chart review, patient was evaluated by Dr. Locke on 07/06 and patient interested in chemotherapy with plan to return to clinic in 2 weeks to discuss further therapy. reports patient having some confusion and too weak to attend follow-up appointment scheduled for today and therefore patient returned to ER per EMS with complaints of shortness of breath, worsening over the past few days. Patient admitted for acute exacerbation of COPD and requiring 6 LPM supplemental oxygen at rest. Palliative referral completed per patient and request. CM/SW to follow for any further discharge planning/needs. MONTY Parker CM
[2021-07-08 18:09] LABS: Procalcitonin 0.08 ng/mL (0.00-0.09)
[2021-07-08 18:46] LABS: Bedside Glucose 193 mg/dL (70-110)
[2021-07-08] MEDS: Insulin Lispro 100 UNIT/ML INSULN.PEN SC (22:22)
[2021-07-08] MEDS: Atorvastatin Calcium 40 MG Tablet PO (22:23)
[2021-07-08] MEDS: Carvedilol 12.5 MG Tablet PO (22:23)
[2021-07-08] MEDS: APIXABAN 5 MG TABLET PO (22:24)
[2021-07-08] MEDS: Glucerna Shake 120 ML LIQUID PO (22:24)
[2021-07-08 22:45] LABS: Bedside Glucose 224 mg/dL (70-110)
[2021-07-09] VITALS (14 sets, daily range): BP systolic 129–159; BP diastolic 67–99; PULSE 64–103; RESP 12–24; TEMP 36.5–36.8; O2SAT 90–99
[2021-07-09 04:28] LABS: Absolute Lymphocyte Count 0.29 X10^3/uL (0.83-4.51); Absolute Neutrophil Count 3.3 X10^3/uL (2.0-7.7); Basophil# 0.02 X10^3/uL; Basophil% 0.5 % (0-1); Hematocrit 34.8 % (40-54); Hemoglobin 9.7 g/dL (13.0-16.5); Lymphocyte # 0.29 X10^3/ul (0.83-4.51); Lymphocyte % 7.9 % (19-41); Mean Corp Hgb Conc 27.9 g/dL (32-36); Mean Corpuscular Hgb 24.3 pg (27.0-32.0); Mean Corpuscular Volume 87.2 fL (80-94); Mean Platelet Vol. 9.7 fl (6.2-12.0); Monocyte# 0.03 X10^3/uL; Monocyte% 0.8 % (0-10); NRBC Flagged by Analyzer 0 % (0-5); Neutrophil % 90.3 % (47-70); POSITIVE DIFFERENTIAL YES; Platelet Count 288 K/mm3 (150-450); Red Blood Count 3.99 M/mm3 (4.6-6.2); White Blood Count 3.7 K/mm3 (4.4-11.0)
[2021-07-09 04:32] LABS: Differential Indicated SCAN CRITERIA MET
[2021-07-09 04:51] LABS: ALB/GLOB Ratio 0.7 RATIO (0.9-2.4); AST(SGOT) 9 U/L (15-37); Alanine Aminotransfer ALT/SGPT 19 U/L (16-61); Albumin, Serum 3.1 g/dL (3.2-5.0); Alkaline Phosphatase 83 U/L (45-117); Anion Gap 3 (5-15); BUN 24 mg/dL (7-18); BUN/Creat Ratio 31.3 RATIO (10-20); Calcium,Total 9.3 mg/dL (8.5-10.1); Chloride 95 mmol/L (98-107); Creatinine, Serum 0.77 mg/dL (0.70-1.30); EST Glomerular Filtration Rate 107 mL/min (>60); Est Glom Filt Rate - Afr Amer 129 mL/min (>60); Estimated Creatinine Clearance 65.18 ml/min; Globulin 4.3 g/dL (2.2-4.2); Glucose 246 mg/dL (74-106); Potassium 5.3 mmol/L (3.5-5.1); Protein, Total 7.4 g/dL (6.4-8.2); Sodium Level 136 mmol/L (136-145)
[2021-07-09 04:57] LABS: Differential Comment SCANNED
--- NOTE | 2021-07-09 06:39 | PCM.PN.BLA ---
Progress Note Nurse reports that patient is agitated. Of notes patient is receiving steroids IV. Query steroid psychosis. Nurse report that lungs are diminished and patient is not wheezing much. Hold a.m. previously ordered steroids. Haldol 4 mg IV x1 ordered. UA ordered.
[2021-07-09] MEDS: Insulin Lispro 100 UNIT/ML INSULN.PEN SC ×4 (06:46→21:01)
[2021-07-09] MEDS: Levothyroxine 50 MCG Tablet PO (06:47)
[2021-07-09] MEDS: Haloperidol Lactate 5 MG/ML Vial 4 MG IV (06:54)
[2021-07-09] MEDS: Ipratropium/Albuterol Sulfate 3 ML AMPUL.NEB INHALATION ×2 (06:58→18:50)
[2021-07-09 07:00] LABS: Bedside Glucose 238 mg/dL (70-110)
--- NOTE | 2021-07-09 07:21 | NURSING ---
Close to end of shift patient became extremely confused. Required a one time dose of Iv Haldol 4mg. Patient did not respond to this and started trying to hit and kick staff, yelling and swearing at staff. Spoke with charge nurse about getting ahold of doctor to get order for wrist restraints to protect patient from hurting himself or others.
[2021-07-09] MEDS: Carvedilol 12.5 MG Tablet PO ×2 (09:20→16:31)
[2021-07-09] MEDS: Aspirin E.C. 81 MG Tablet PO (09:20)
[2021-07-09] MEDS: cloNIDine HCl 0.2 MG Tablet PO (09:20)
[2021-07-09] MEDS: APIXABAN 5 MG TABLET PO ×2 (09:21→21:00)
[2021-07-09] MEDS: Lisinopril 40 MG Tablet PO (09:21)
[2021-07-09] MEDS: amLODIPine 10 MG Tablet PO (09:21)
--- NOTE | 2021-07-09 12:02 | PN.HOSP_ITS ---
Documented by User: Shamika Gallego FLOW COORDINATOR, FLOW COORDINATOR-C 07/09/21 12:37 Subjective Subjective Patient seen and examined. Lethargic on exam. Reported to have confusion and agitation overnight and received Haldol. Objective Data Objective Data Vital Signs: Vital Signs Temp Pulse Resp BP Pulse Ox 97.7 F L 89 18 159/99 H 98 07/09/21 09:15 07/09/21 09:15 07/09/21 09:15 07/09/21 09:15 07/09/21 09:15 Oxygen Flow Rate (L/min) 6 Oxygen Delivery Method Nasal Cannula Weight: 283 lb 8.231 oz Body Mass Index (BMI) 43.9 Intake & Output: Intake and Output for Last 24 Hours 07/07/21 07/08/21 07/09/21 23:59 23:59 23:59 Intake Total 220 / 220 100 / 100 Output Total 125 / 125 Balance 95 / 95 100 / 100 Lab / Micro Data Result Diagrams: 07/09/21 04:13 07/09/21 04:13 Labs: Laboratory Results - last 24 hr 07/08/21 13:15: WBC 6.8, RBC 4.02 L, Hgb 10.0 L, Hct 36.0 L, MCV 89.6, MCH 24.9 L, MCHC 27.8 L, RDW Std Deviation 61.6 H, RDW Coeff of Oliva 19.0 H, Plt Count 287, MPV 10.1, Immature Gran % (Auto) 0.300, Neut % (Auto) 78.8 H, Lymph % (Auto) 12.2 L, [place] % (Auto) 6.3, Eos % (Auto) 1.2, Baso % (Auto) 1.2 H, Absolute Neuts (auto) 5.3, Absolute Lymphs (auto) 0.83, Nucleated RBC % 0 07/08/21 13:15: PT 17.3 H, INR 1.5, APTT 32.0 07/08/21 13:15: Sodium 138, Potassium 4.7, Chloride 96 L, Carbon Dioxide 39.0 H, Anion Gap 3 L, BUN 23 H, Creatinine 0.80, Estim Creat Clear Calc 78.64, Est GFR (MDRD) Af Amer 123, Est GFR (MDRD) Non-Af 102, BUN/Creatinine Ratio 28.8 H, Glucose 166 H, Calcium 9.1, Total Bilirubin 0.60, AST 13 L, ALT 17, Alkaline Phosphatase 81, Troponin I High Sens 23, Total Protein 7.4, Albumin 3.2, Globulin 4.2, Albumin/Globulin Ratio 0.8 L 07/08/21 13:15: Magnesium 1.7 07/08/21 13:15: Procalcitonin 0.08 07/08/21 18:41: POC Glucose 193 H 07/08/21 22:17: POC Glucose 224 H 07/09/21 04:13: WBC 3.7 L, RBC 3.99 L, Hgb 9.7 L, Hct 34.8 L, MCV 87.2, MCH 24.3 L, MCHC 27.9 L, RDW Std Deviation 60.0 H, RDW Coeff of Oliva 19.0 H, Plt Count 288, MPV 9.7, Immature Gran % (Auto) 0.500, Neut % (Auto) 90.3 H, Lymph % (Auto) 7.9 L, [place] % (Auto) 0.8, Eos % (Auto) 0.0, Baso % (Auto) 0.5, Absolute Neuts (auto) 3.3, Absolute Lymphs (auto) 0.29 L, Nucleated RBC % 0, Differential Comment SCANNED, Diff Path Review September07/09/21 04:13: Sodium 136, Potassium 5.3 H, Chloride 95 L, Carbon Dioxide 38.0 H, Anion Gap 3 L, BUN 24 H, Creatinine 0.77, Estim Creat Clear Calc 65.18, Est GFR (MDRD) Af Amer 129, Est GFR (MDRD) Non-Af 107, BUN/Creatinine Ratio 31.3 H, Glucose 246 H, Calcium 9.3, Total Bilirubin 0.70, AST 9 L, ALT 19, Alkaline Phosphatase 83, Total Protein 7.4, Albumin 3.1 L, Globulin 4.3 H, Albumin/Globulin Ratio 0.7 L 07/09/21 06:40: POC Glucose 238 H Micro: Microbiology 07/08/21 14:32 Nasal Secretion SARS-CoV-2 Antigen (Rapid) - Final Radiography Diagnostic Testing: Radiology Impression Chest X-Ray 07/08/21 13:50 IMPRESSION: Blunting of both costophrenic angles more prominent on the right side with progressive increased markings in both lower lobes as described as well as the major fissures bilaterally. Mild degree of CHF. Stable nodular density in the left lower lobe. Electronically Signed: Venkatesh Messer MD at 14:46 EST , Physical Exam Const no apparent distress General Appearance: lethargic HEENT normocephalic Mouth: dry mucous membranes Eyes PERRL, EOMs intact bilaterally and conjunctivae normal Neck no lymphadenopathy Resp clear to auscultation bilaterally Auscultation: diminished lung sounds Cardio regular rate, regular rhythm and no murmurs Peripheral Pulses: pulses 2+ throughout GI normal to inspection, nondistended, normoactive bowel sounds, non-tender and non-distended Extremity normal to inspection Skin no rashes or lesions noted Skin Narrative: Right thigh wound from prior sarcoma excision. Lesions: no lesions Rashes: no rashes Trauma: no lacerations or abrasions Neuro CN's II-XII intact bilaterally, no focal motor deficits, no sensory deficits noted and deep tendon reflexes 2+ bilaterally Psych mental status grossly normal and affect normal Assessment & Plan Assessment/Plan (1) Acute and chronic respiratory failure with hypoxia: PLAN: 1. Acute on chronic hypoxic respiratory failure secondary to acute on chronic heart failure with reduced ejection fraction/ischemic cardiomyopathy and exacerbation of COPD- Continue supplement oxygen to maintain O2 at above 90%. 2. Acute on chronic heart failure with reduced ejection fraction/ischemic cardiomyopathy-chest x-ray consistent with CHF. IV Lasix. Strict I&O. Daily weight. Fluid restriction. Echo 06/29/21 demonstrated an EF of 40%, RVSP estimated to be 36 mmHg. 3. COPD exacerbation-IV Solu-Medrol. Albuterol DuoNeb aerosols. 4. Metabolic encephalopathy-suspect secondary to #1. Will obtain ABG. Required Haldol overnight. No evidence of infectious etiology. 5. 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 States he has had repeat revisions. Continues to have right thigh wound. Wound RN consult. Recent thoracentesis negative for malignancy. Recently established with [facility] oncology. Recently saw oncology in office and declined CT-guided biopsy of lung nodules. 6. CAD with history of CABG/PTCA/CANDICE-follows with cardiology. Continue medical management including aspirin, statin, carvedilol, lisinopril, Eliquis. 7. Hypertension-stable, continue amlodipine, carvedilol, clonidine, lisinopril. 8. Hyperlipidemia-continue statin. 9. Normocytic anemia-Recent Iron studies consistent with iron deficiency. Continue iron supplementation. 10. CVA-continue aspirin, statin, Eliquis. 11. Type 2 diabetes mellitus-hold oral regimen. Accu-Cheks with sliding scale insulin. 12. Hypothyroidism-continue Synthroid regimen. 13. Paroxysmal atrial fibrillation-on Eliquis, carvedilol. 14. Former tobacco use- encouraged continued cessation. DVT prophylaxis- Eliquis Discharge planning: requesting hospice consult due to recent progressive decline, to meet today for further discussion. This patient was seen by LOCO Rowland under the supervision of Dr. Olson. Documented by User: Dr. Brian Olson MD 07/09/21 13:36 Objective Data Lab / Micro Data Result Diagrams: 07/09/21 04:13 07/09/21 04:13 Assessment & Plan Addt'l Comments This patient was seen in conjunction with LOCO Rowland . I have independently interviewed and examined the patient and reviewed pertinent historical, laboratory, and other data. Please refer to LOCO Rowland note for details of this patient's presentation, findings, and recommendations. I have reviewed LOCO Rowland note and concur with documented findings. 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 Acute on chronic hypoxic respiratory failure 2. Acute on chronic heart failure with reduced ejection fraction 4. Metabolic encephalopathy 5. Ischemic cardiomyopathy 6. COPD exacerbation 7. 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 CAD with history of CABG/PTCA/CANDICE 9. Hypertension-stable, continue amlodipine, carvedilol, clonidine, lisinopril. 10. Dyslipidemia 11. Anemia of chronic disorder 12. CVA 13. Paroxysmal atrial fibrillation 14. Diabetes mellitus 2 15. Hypothyroidism 16. DVT prophylaxis- Eliquis Recommendations: Options for management were reviewed Disposition ; hospice per family request Total time spent by myself and the advanced practice practitioner evaluating patient, reviewing labs, subsequent management decisions, discussion with patient as well as other providers 45 minutes ( 25 of which was spent by myself) Charges/Coding Visit Charges Inpatient E&M: 44902 Subs Hosp L3
[2021-07-09 12:21] LABS: Bedside Glucose 227 mg/dL (70-110)
[2021-07-09 13:31] LABS: Allen Test Positive; Base Excess 12 mmol/L (-2 to +2); Bicarbonate 38.1 mmol/L (22-26); Blood Gas Specimen Type ART; O2 Delivery Device Cannula; PO2 61 mmHG (75-100); SITE L Radial; SO2 88 % (95-99); Total Carbon Dioxide 40 mmol/L; pCO2 73.8 mmHg (35-45); pH 7.32 (7.35-7.45)
[2021-07-09] MEDS: 0.9% Saline Lock 10 ML Syringe IV ×4 (13:46→21:05)
--- NOTE | 2021-07-09 14:05 | CPS ---
Critical value verified times two. Reported to charge nurse who sent results to Shamika Gallego.
[2021-07-09] MEDS: Furosemide 40 MG/4 ML Vial IV ×2 (14:44→18:49)
[2021-07-09 15:21] LABS: Bacteria 0 SEEN /hpf (None Seen); Mucous, Urine 0 SEEN /hpf (<or=2+); Red Blood Cells-Urine 0 SEEN /hpf (0-5); Squamous Epithelial Cells - UA 0 SEEN /hpf (0-5)
[2021-07-09 15:25] LABS: Anion Gap 1 (5-15); BUN 28 mg/dL (7-18); Calcium,Total 9.4 mg/dL (8.5-10.1); Chloride 95 mmol/L (98-107); Creatinine, Serum 0.96 mg/dL (0.70-1.30); EST Glomerular Filtration Rate 82 mL/min (>60); Est Glom Filt Rate - Afr Amer 99 mL/min (>60); Glucose 263 mg/dL (74-106); Potassium 5.4 mmol/L (3.5-5.1); Sodium Level 135 mmol/L (136-145)
[2021-07-09 15:33] LABS: Color, Urine Yellow (Yellow); Glucose, Dipstick Normal (Normal); Ketone-Dipstick Negative (Negative); Leukocyte Esterase-Dipstick 25 /ul (Negative); Nitrite-Dipstick Negative (Negative); Occult Blood-Urine Negative /ul (Negative); Protein-Dipstick 30 mg/dl (Negative); Specific Gravity, Urine 1.025 (1.002-1.030); Urine Bilirubin Dipstick Negative (Negative); Urine Clarity Clear (Clear); Urine Urobilinogen Normal (Normal)
[2021-07-09 15:46] LABS: White Blood Cells 0-5 SEEN /hpf (0-5)
[2021-07-09] MEDS: Sodium Polystyrene Sulfonate 15 GM/60 ML UDC PO (16:30)
[2021-07-09] MEDS: Glucerna Shake 120 ML LIQUID PO ×2 (16:35→21:00)
[2021-07-09 16:51] LABS: Bedside Glucose 274 mg/dL (70-110)
[2021-07-09] MEDS: Atorvastatin Calcium 40 MG Tablet PO (21:01)
[2021-07-09] MEDS: MELATONIN 3 MG TABLET PO (21:15)
[2021-07-09 21:40] LABS: Bedside Glucose 346 mg/dL (70-110)
[2021-07-09] MEDS: Sodium Chloride 0.65% 1 SPRAY SPRAY.BTL 2 SPRAY NASAL (23:08)
[2021-07-10] VITALS (10 sets, daily range): BP systolic 133–165; BP diastolic 69–106; PULSE 73–95; RESP 12–69; TEMP 36.5–36.7; O2SAT 85–94
[2021-07-10] MEDS: Haloperidol Lactate 5 MG/ML Vial 4 MG IV (01:51)
--- NOTE | 2021-07-10 03:57 | CPS ---
Patient refusing to wear bipap any longer. Placed on 4L NC, refused pulse ox to be taken. Became confused and angry towards staff using fowl language.
[2021-07-10] MEDS: Sodium Chloride 0.65% 1 SPRAY SPRAY.BTL 2 SPRAY NASAL (05:48)
[2021-07-10] MEDS: Levothyroxine 50 MCG Tablet PO (05:49)
[2021-07-10 06:18] LABS: Absolute Lymphocyte Count 0.37 X10^3/uL (0.83-4.51); Absolute Neutrophil Count 5.1 X10^3/uL (2.0-7.7); Basophil# 0.01 X10^3/uL; Basophil% 0.2 % (0-1); Hematocrit 35.5 % (40-54); Hemoglobin 10.2 g/dL (13.0-16.5); Lymphocyte # 0.37 X10^3/ul (0.83-4.51); Lymphocyte % 6.4 % (19-41); Mean Corp Hgb Conc 28.7 g/dL (32-36); Mean Corpuscular Hgb 24.7 pg (27.0-32.0); Mean Platelet Vol. 10.2 fl (6.2-12.0); Monocyte# 0.27 X10^3/uL; Monocyte% 4.7 % (0-10); NRBC Flagged by Analyzer 0 % (0-5); Neutrophil % 88.2 % (47-70); POSITIVE DIFFERENTIAL YES; Platelet Count 366 K/mm3 (150-450); RBC Distribution Width CV 19.6 % (11.6-14.6); RBC Distribution Width SD 59.1 fl (35.1-43.9); Red Blood Count 4.13 M/mm3 (4.6-6.2); White Blood Count 5.8 K/mm3 (4.4-11.0)
[2021-07-10 06:25] LABS: Differential Indicated SCAN CRITERIA MET
[2021-07-10 06:30] LABS: Anion Gap 4 (5-15); BUN 32 mg/dL (7-18); BUN/Creat Ratio 38.8 RATIO (10-20); Calcium,Total 9.6 mg/dL (8.5-10.1); Chloride 91 mmol/L (98-107); Creatinine, Serum 0.82 mg/dL (0.70-1.30); EST Glomerular Filtration Rate 98 mL/min (>60); Est Glom Filt Rate - Afr Amer 119 mL/min (>60); Estimated Creatinine Clearance 79.49 ml/min; Glucose 311 mg/dL (74-106); Potassium 4.4 mmol/L (3.5-5.1); Sodium Level 134 mmol/L (136-145)
[2021-07-10] MEDS: Insulin Lispro 100 UNIT/ML INSULN.PEN SC ×2 (06:40→13:02)
[2021-07-10] MEDS: Ipratropium/Albuterol Sulfate 3 ML AMPUL.NEB INHALATION ×2 (06:53→11:04)
[2021-07-10 06:55] LABS: Bedside Glucose 319 mg/dL (70-110)
[2021-07-10 07:03] LABS: Differential Comment SCANNED
[2021-07-10] MEDS: cloNIDine HCl 0.2 MG Tablet PO (08:54)
[2021-07-10] MEDS: Aspirin E.C. 81 MG Tablet PO (08:54)
[2021-07-10] MEDS: Carvedilol 12.5 MG Tablet PO (08:54)
[2021-07-10] MEDS: APIXABAN 5 MG TABLET PO (08:55)
[2021-07-10] MEDS: amLODIPine 10 MG Tablet PO (08:55)
[2021-07-10] MEDS: Lisinopril 40 MG Tablet PO (08:55)
[2021-07-10 09:31] LABS: Magnesium 2.2 mg/dL (1.6-2.6); Phosphorus 3.6 mg/dL (2.5-4.9)
[2021-07-10] MEDS: LORazepam 0.5 MG Tablet PO (10:01)
[2021-07-10 10:41] LABS: Allen Test Positive; Base Excess 13 mmol/L (-2 to +2); Bicarbonate 39.5 mmol/L (22-26); Blood Gas Specimen Type ART; O2 Delivery Device Cannula; PO2 68 mmHG (75-100); SITE L Radial; SO2 90 % (95-99); Total Carbon Dioxide 42 mmol/L; pCO2 79.9 mmHg (35-45)
--- NOTE | 2021-07-10 10:50 | CPS ---
Critical value verified times two. Hand delivered results to Shamika Gallego NP. Verified by read back.
--- NOTE | 2021-07-10 11:03 | NURSING ---
spoke at length w/pt's re intermittant confusion, runs VT, cont removing of oxygen both bipap and nc, CA dx. She is understandable distraught in light of the recent of 2 of their 3 dtrs and her own CA dx. She states she doesn't want him to in a hospital. Disc what having pt at home would look like, she states she knows the hospice peopleand would be comfortable with him at the hospice center. Julianne Gallego CNP notified all above.
--- NOTE | 2021-07-10 11:29 | NURSING ---
Spoke with Camille from hospice to inform her patient's now in agreement to hospice IPU. Camille voiced understanding and will be back in touch regarding what further information she will need in addition to what was done with yesterdays palliative meeting.
[2021-07-10 11:41] LABS: Bedside Glucose 329 mg/dL (70-110)
--- NOTE | 2021-07-10 12:58 | DS.PCM_ITS ---
Documented by User: Shamika Gallego NP, [employer] 07/10/21 13:13 Providers Date of Admission: 07/08/21 Date of Discharge: 07/10/21 Primary Care Physician: Dr. Dino Ward MD Consultations 07/08/21 17:54 Consult: Hospice / Palliative Care Routine Consulting Provider: [facility] Reason for Consult: Metastatic Cancer, worsening dyspnea complaints, interested in program. EMERGENT Consult: No MD Notified: Yes Date Notified: 07/08/21 Time Notified: 18:49 Method of Notification: paged Consult: Onc/Wound/solid waste analyst Routine Comment: Reason For Visit: ACUTE ON CHRONIC REP FAILURE, MULTIFACOTRIAL Diagnosis Discharge Diagnosis (1) Acute and chronic respiratory failure with hypoxia: Status: Chronic Code(s): J96.21 - Acute and chronic respiratory failure with hypoxia Medications at Discharge Home Medications aspirin 81 mg tablet,delayed release 81 mg PO DAILY 11/09/17 glimepiride 4 mg tablet 4 mg PO DAILY 11/09/17 metformin 1,000 mg tablet 1,000 mg PO BID 11/09/17 nitroglycerin 0.4 mg sublingual tablet 0.4 mg SUBLINGUAL Q5M PRN #90 tab 09/23/20 flash glucose sensor #2 ea 03/08/21 fluticasone fur. 200 mcg-umeclid 62.5 mcg-vilant 25 mcg inhalat.powder 1 inh INHALATION DAILY ea 06/20/21 levothyroxine 50 mcg tablet 50 mcg PO DAILY tab 06/20/21 Eliquis 5 mg PO BID 06/28/21 Trulicity 0.75 mg SUBCUT TU 06/28/21 albuterol sulfate 2.5 mg INHALATION BID 06/28/21 amlodipine 10 mg PO QDAY 06/28/21 atorvastatin 40 mg PO DAILY 06/28/21 carvedilol 12.5 mg PO BID 06/28/21 clonidine HCl 0.2 mg PO DAILY 06/28/21 lisinopril 40 mg PO DAILY 06/28/21 ferrous sulfate 325 mg PO BID #60 tab 07/01/21 furosemide [Lasix] 40 mg PO BID #60 tab 07/01/21 losartan 100 mg PO DAILY 07/08/21 Hospital Course Operations None Procedures None Summary of Care Provided Hospital Course: Patient is a 70-year-old male admitted 07/08/2021 due to worsening dyspnea. 1. Acute on chronic hypoxic and hypercapnic respiratory failure secondary to acute on chronic heart failure with reduced ejection fraction/ischemic cardiomyopathy and exacerbation of COPD- Continue supplement oxygen to maintain O2 at above 90%. Refusing BiPAP, noncompliant with O2. Overall decompensating. initially signed with palliative however now amendable to hospice. Due to agitation, restlessness, feel patient is inpatient hospice appropriate. 2. Acute on chronic heart failure with reduced ejection fraction/ischemic cardiomyopathy-bnp 995. Chest x-ray consistent with CHF. IV Lasix. Strict I&O. Daily weight. Fluid restriction. Echo 06/29/21 demonstrated an EF of 40%, RVSP estimated to be 36 mmHg. 3. COPD exacerbation-IV Solu-Medrol. Albuterol DuoNeb aerosols. 4. Metabolic encephalopathy- secondary to #1. No evidence of infectious etiology. 5. 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 States he has had repeat revisions. Continues to have right thigh wound. Wound RN consult. Recent thoracentesis negative for malignancy. Recently established with [facility] oncology. Recently saw oncology in office and declined CT-guided biopsy of lung nodules. 6. CAD with history of CABG/PTCA/CANDICE-follows with cardiology. Continue medical management including aspirin, statin, carvedilol, lisinopril, Eliquis. 7. Hypertension-stable, continue amlodipine, carvedilol, clonidine, lisinopril. 8. Hyperlipidemia-continue statin. 9. Normocytic anemia-Recent Iron studies consistent with iron deficiency. Continue iron supplementation. 10. CVA-continue aspirin, statin, Eliquis. 11. Type 2 diabetes mellitus-hold oral regimen. Accu-Cheks with sliding scale insulin. 12. Hypothyroidism-continue Synthroid regimen. 13. Paroxysmal atrial fibrillation-on Eliquis, carvedilol. 14. Former tobacco use- encouraged continued cessation. Physical Exam Const no apparent distress General Appearance: Restless, confused HEENT normocephalic Mouth: dry mucous membranes Eyes PERRL, EOMs intact bilaterally and conjunctivae normal Neck no lymphadenopathy Resp clear to auscultation bilaterally Auscultation: diminished lung sounds Cardio regular rate, regular rhythm and no murmurs Peripheral Pulses: pulses 2+ throughout GI normal to inspection, nondistended, normoactive bowel sounds, non-tender and non-distended Extremity normal to inspection Skin no rashes or lesions noted Skin Narrative: Right thigh wound from prior sarcoma excision. Lesions: no lesions Rashes: no rashes Trauma: no lacerations or abrasions Neuro CN's II-XII intact bilaterally, no focal motor deficits, no sensory deficits noted and deep tendon reflexes 2+ bilaterally Psych mental status grossly normal and affect normal Patient seen and examined prior to discharge. Physical assessment as noted above. Inpatient hospice unit at discharge for comfort measures. This patient was seen by LOCO Rowland under the supervision of Dr. Olson. Weight / BMI Weight Weight: 285 lb 0.923 oz Body Mass Index (BMI) 43.9 ABG / Lab / Microbiology Data Result Diagrams: 07/10/21 05:08 07/10/21 05:08 Laboratory: Laboratory Results - last 24 hr 07/09/21 15:03: Sodium 135 L, Potassium 5.4 H, Chloride 95 L, Carbon Dioxide 39.0 H, Anion Gap 1 L, BUN 28 H, Creatinine 0.96, Estim Creat Clear Calc 67.90, Est GFR (MDRD) Af Amer 99, Est GFR (MDRD) Non-Af 82, BUN/Creatinine Ratio 29.0 H , Glucose 263 H, Calcium 9.4 07/09/21 15:15: Urine Color Yellow, Urine Clarity Clear, Urine pH 6.0, Ur Specific Boyce 1.025, Urine Protein 30 H, Urine Glucose (UA) Normal, Urine Ketones Negative, Urine Occult Blood Negative, Urine Nitrite Negative, Urine Bilirubin Negative, Urine Urobilinogen Normal, Ur Leukocyte Esterase 25 H, Urine RBC 0 SEEN, Urine WBC 0-5 SEEN, Ur Squamous Epith Cells 0 SEEN, Urine Bacteria 0 SEEN, Urine Mucus 0 SEEN 07/09/21 16:30: POC Glucose 274 H 07/09/21 20:55: POC Glucose 346 H 07/10/21 05:08: WBC 5.8, RBC 4.13 L, Hgb 10.2 L, Hct 35.5 L, MCV 86.0, MCH 24.7 L, MCHC 28.7 L, RDW Std Deviation 59.1 H, RDW Coeff of Oliva 19.6 H, Plt Count 366, MPV 10.2, Immature Gran % (Auto) 0.500, Neut % (Auto) 88.2 H, Lymph % (Auto) 6.4 L, Gosper % (Auto) 4.7, Eos % (Auto) 0.0, Baso % (Auto) 0.2, Absolute Neuts (auto) 5.1, Absolute Lymphs (auto) 0.37 L, Nucleated RBC % 0, Differential Comment SCANNED 07/10/21 05:08: Sodium 134 L, Potassium 4.4, Chloride 91 L, Carbon Dioxide 39.0 H, Anion Gap 4 L, BUN 32 H, Creatinine 0.82, Estim Creat Clear Calc 79.49, Est GFR (MDRD) Af Amer 119, Est GFR (MDRD) Non-Af 98, BUN/Creatinine Ratio 38.8 H, Glucose 311 H, Calcium 9.6 07/10/21 05:08: Phosphorus 3.6, Magnesium 2.2 07/10/21 06:39: POC Glucose 319 H 07/10/21 11:35: POC Glucose 329 H Microbiology: Microbiology 07/08/21 14:32 Nasal Secretion SARS-CoV-2 Antigen (Rapid) - Final ABG: ABG 07/09/21 07/10/21 13:25 10:32 Specimen Type ART ART Sample Site L Radial L Radial pH 7.32 L 7.30 L Bicarbonate Actual 38.1 H 39.5 H Total CO2 40 42 Base Excess 12 H 13 H O2 Saturation 88 L 90 L ABG pCO2 73.8 H* 79.9 H* ABG pO2 61 L 68 L Chris Test Positive Positive O2 Delivery Device Cannula Cannula Liter Flow 4.0 6.0 Crit Call To/Read Back Yes Yes Meaningful Use Info Meaningful Use Diagnoses (Choose all that apply): None applicable Discharge Plan Admission Admit Date/Time: 07/08/21 16:45 Primary Reason for Your Visit: Respiratory failure Attending Provider: Brian Olson Primary Care Provider: Dino Ward Consulting Providers: Yessi Beal ; Brian Cortez ; Codie Forrester ; Idalia Pepe ; Henny Garcia ; Hilary Reid [employer] Discharge Orders/Prescriptions Prescriptions: No Action aspirin 81 mg tablet,delayed release (DR/EC) 81 mg PO DAILY RF: 0 glimepiride [Amaryl] 4 mg tablet 4 mg PO DAILY RF: 0 metformin 1,000 mg tablet 1,000 mg PO BID RF: 0 nitroglycerin 0.4 mg tablet, sublingual 0.4 mg sublingual Q5M PRN (Reason: chest pain) Qty: 90 RF: 6 ttrkqcuvuvl-hkqsvsxcu-qgcghubo 200-62.5-25 mcg blister with device 1 inh inhalation DAILY RF: 0 levothyroxine 50 mcg tablet 50 mcg PO DAILY RF: 0 albuterol sulfate 2.5 mg /3 mL (0.083 %) solution for nebulization 2.5 mg inhalation BID RF: 0 atorvastatin 40 mg tablet 40 mg PO DAILY RF: 0 clonidine HCl 0.2 mg tablet 0.2 mg PO DAILY RF: 0 lisinopril 40 mg tablet 40 mg PO DAILY RF: 0 Trulicity 0.75 mg/0.5 mL pen injector 0.75 mg subcut TU RF: 0 carvedilol 12.5 mg tablet 12.5 mg PO BID RF: 0 amlodipine 10 mg tablet 10 mg PO QDAY RF: 0 Eliquis 5 mg tablet 5 mg PO BID RF: 0 ferrous sulfate 325 mg (65 mg iron) tablet 325 mg PO BID Qty: 60 RF: 0 furosemide [Lasix] 40 mg tablet 40 mg PO BID Qty: 60 RF: 0 losartan 100 mg tablet 100 mg PO DAILY RF: 0 (DME) FreeStyle Belinda 2 Sensor Kit See Rx Instructions .ROUTE .MEDSUPPLY Qty: 2 RF: 0 Referrals / Follow Up: Dino Ward MD [Primary Care Provider] - Disposition Disposition (needs filled in before D/C Order can be placed): Hospice in Medical Facility Documented by User: Dr. Brian Olson MD 07/10/21 14:14 Providers Date of Admission: 07/08/21 Reason For Visit: ACUTE ON CHRONIC REP FAILURE, MULTIFACOTRIAL Medications at Discharge Home Medications aspirin 81 mg tablet,delayed release 81 mg PO DAILY 11/09/17 glimepiride 4 mg tablet 4 mg PO DAILY 11/09/17 metformin 1,000 mg tablet 1,000 mg PO BID 11/09/17 nitroglycerin 0.4 mg sublingual tablet 0.4 mg SUBLINGUAL Q5M PRN #90 tab 09/23/20 flash glucose sensor #2 ea 03/08/21 fluticasone fur. 200 mcg-umeclid 62.5 mcg-vilant 25 mcg inhalat.powder 1 inh INHALATION DAILY ea 06/20/21 levothyroxine 50 mcg tablet 50 mcg PO DAILY tab 06/20/21 Eliquis 5 mg PO BID 06/28/21 Trulicity 0.75 mg SUBCUT TU 06/28/21 albuterol sulfate 2.5 mg INHALATION BID 06/28/21 amlodipine 10 mg PO QDAY 06/28/21 atorvastatin 40 mg PO DAILY 06/28/21 carvedilol 12.5 mg PO BID 06/28/21 clonidine HCl 0.2 mg PO DAILY 06/28/21 lisinopril 40 mg PO DAILY 06/28/21 ferrous sulfate 325 mg PO BID #60 tab 07/01/21 furosemide [Lasix] 40 mg PO BID #60 tab 07/01/21 losartan 100 mg PO DAILY 07/08/21 Hospital Course Operations None Summary of Care Provided Minutes Spent on Discharge: 40 Hospital Course: This patient was seen in conjunction with JAVIER Rowland . I have independently interviewed and examined the patient and reviewed pertinent historical, laboratory, and other data. Please refer to LOCO Rowland note for details of this patient's presentation, findings, and recommendations. I have reviewed LOCO Rowland note and concur with documented findings. 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 Patient's family requested for hospice patient was discharged to inpatient hospice in the medical facility Physical Examination: GENERAL: lethargic HEENT: Atraumatic; EYES; Anicteric, Normal Conjunctiva NECK; supple, normal thyroid, RESPIRATORY: Diminished to auscultation CARDIOVASCULAR: Regular S1 S2, GI: soft, normoactive bowel sounds, : No Renal angle tenderness; EXTREMITIES: No edema, no clubbing, MUSCULOSKELETAL: no muscle wasting NEURO: lethargic Assessment 1. Acute on chronic hypoxic respiratory failure 2. Acute on chronic heart failure with reduced ejection fraction 4. Metabolic encephalopathy 5. Ischemic cardiomyopathy 6. COPD exacerbation 7. 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 CAD with history of CABG/PTCA/CANDICE 9. Hypertension-stable, continue amlodipine, carvedilol, clonidine, lisinopril. 10. Dyslipidemia 11. Anemia of chronic disorder 12. CVA 13. Paroxysmal atrial fibrillation 14. Diabetes mellitus 2 15. Hypothyroidism 16. DVT prophylaxis- [facility] course; as documented above Total time spent by myself and the advanced practice practitioner evaluating patient, reviewing labs, subsequent management decisions, discussion with patient as well as other providers 40 minutes ( 25 of which was spent by myself) ABG / Lab / Microbiology Data Result Diagrams: 07/10/21 05:08 07/10/21 05:08 Discharge Plan Admission Admit Date/Time: 07/08/21 16:45 Primary Reason for Your Visit: Respiratory failure Attending Provider: Brian Olson Primary Care Provider: Dino Ward Consulting Providers: Yessi Beal ; Brian Cortez ; Codie Forrester ; Idalia Hopson ; Henny Garcia ; Hilary Reid [employer] Discharge Orders/Prescriptions Prescriptions: No Action aspirin 81 mg tablet,delayed release (DR/EC) 81 mg PO DAILY RF: 0 glimepiride [Amaryl] 4 mg tablet 4 mg PO DAILY RF: 0 metformin 1,000 mg tablet 1,000 mg PO BID RF: 0 nitroglycerin 0.4 mg tablet, sublingual 0.4 mg sublingual Q5M PRN (Reason: chest pain) Qty: 90 RF: 6 srpoaptarre-lpvsvsfhq-knthtruu 200-62.5-25 mcg blister with device 1 inh inhalation DAILY RF: 0 levothyroxine 50 mcg tablet 50 mcg PO DAILY RF: 0 albuterol sulfate 2.5 mg /3 mL (0.083 %) solution for nebulization 2.5 mg inhalation BID RF: 0 atorvastatin 40 mg tablet 40 mg PO DAILY RF: 0 clonidine HCl 0.2 mg tablet 0.2 mg PO DAILY RF: 0 lisinopril 40 mg tablet 40 mg PO DAILY RF: 0 Trulicity 0.75 mg/0.5 mL pen injector 0.75 mg subcut TU RF: 0 carvedilol 12.5 mg tablet 12.5 mg PO BID RF: 0 amlodipine 10 mg tablet 10 mg PO QDAY RF: 0 Eliquis 5 mg tablet 5 mg PO BID RF: 0 ferrous sulfate 325 mg (65 mg iron) tablet 325 mg PO BID Qty: 60 RF: 0 furosemide [Lasix] 40 mg tablet 40 mg PO BID Qty: 60 RF: 0 losartan 100 mg tablet 100 mg PO DAILY RF: 0 (DME) FreeStyle Belinda 2 Sensor Kit See Rx Instructions .ROUTE .MEDSUPPLY Qty: 2 RF: 0 Referrals / Follow Up: Dino Ward MD [Primary Care Provider] - Disposition Disposition (needs filled in before D/C Order can be placed): Hospice in Medical Facility Hospital Course Consultations Consultations: Consultations 07/08/21 17:54 Consult: Hospice / Palliative Care Routine Consulting Provider: [facility] Reason for Consult: Metastatic Cancer, worsening dyspnea complaints, interested in program. EMERGENT Consult: No MD Notified: Yes Date Notified: 07/08/21 Time Notified: 18:49 Method of Notification: paged Consult: Onc/Wound/solid waste analyst Routine Comment: Operations None
[2021-07-12 10:17] LABS: Pathologist Review Reviewed
== END 2021-07-10 15:12 | disposition hospice, inpatient (51) | DRG 291 ==
LOC: ED 17:00 → PCU 17:16
PROVIDERS: Hospitalist; Nurse Practitioner Family; Admitting Provider Family Medicine; Emergency Provider Emergency Medicine; PCP Family Medicine; Visit Provider Internal Medicine
DX: I11.0 Hypertensive heart disease with heart failure (principal); J96.22 Acute and chronic respiratory failure with hypercapnia; J96.21 Acute and chronic respiratory failure with hypoxia; G93.41 Metabolic encephalopathy; I50.23 Acute on chronic systolic (congestive) heart failure; C78.01 Secondary malignant neoplasm of right lung; J44.1 Chronic obstructive pulmonary disease with (acute) exacerbation; C78.02 Secondary malignant neoplasm of left lung; L97.111 Non-pressure chronic ulcer of right thigh limited to breakdown of skin; E11.40 Type 2 diabetes mellitus with diabetic neuropathy, unspecified; D50.9 Iron deficiency anemia, unspecified; I48.0 Paroxysmal atrial fibrillation; E11.622 Type 2 diabetes mellitus with other skin ulcer; I25.5 Ischemic cardiomyopathy; E03.9 Hypothyroidism, unspecified; E78.5 Hyperlipidemia, unspecified; I25.10 Atherosclerotic heart disease of native coronary artery without angina pectoris; R45.1 Restlessness and agitation; I25.2 Old myocardial infarction; R41.0 Disorientation, unspecified; T38.0X5A Adverse effect of glucocorticoids and synthetic analogues, initial encounter; Z95.1 Presence of aortocoronary bypass graft; Z66 Do not resuscitate; Z91.19 Patient's noncompliance with other medical treatment and regimen; Z99.81 Dependence on supplemental oxygen; Z79.01 Long term (current) use of anticoagulants; Z79.82 Long term (current) use of aspirin; Z79.84 Long term (current) use of oral hypoglycemic drugs; Z79.899 Other long term (current) drug therapy; Z85.831 Personal history of malignant neoplasm of soft tissue; Z86.73 Personal history of transient ischemic attack (TIA), and cerebral infarction without residual deficits; Z87.891 Personal history of nicotine dependence
CPT/HCPCS: 36415; 36600; 71045; 80048; 80053; 81001; 82803; 82962; 83735; 83880; 84100; 84145; 84484; 85025; 85610; 85730; 87426; 93005; 94002; 94003; 94640; 97163; 97166; 97802; 99285; A4216; J1940